=== PATIENT | male | born 1950 | race Caucasian/White ===

== ENCOUNTER 2023-04-15 10:58 | Inpatient (IN) | payer MEDICARE ==
--- NOTE | 2023-04-15 11:31 | ED ---
General Adult HPI - General Chief complaint: Chest Pain Stated complaint: poss heart attack-sent by pcp Time Seen by Provider: 04/15/23 11:01 Source: patient, family, RN notes reviewed, old records reviewed Mode of arrival: ambulatory Limitations: no limitations - History of Present Illness Initial comments: 72-year-old male presenting for evaluation of chest pain and abnormal EKG at his primary care office. Patient was seen by primary care today for evaluation of a burning chest sensation which occurred while mowing the lawn on Tuesday which was 2 days prior. Patient states he's had this symptom for the past 2 years and has begun the process of an outpatient workup for coronary artery disease. He has not had any significant testing to date. He has no known history of coronary artery disease. He states that on Tuesday the pain was longer in duration than it had been typically and it was associated with some fatigue and poor appetite. No vomiting. No radiating symptoms. This was a burning sensation across his lower chest. No symptoms currently. - Related Data Home Medications Medication Instructions Recorded Confirmed Aspirin EC [Ecotrin Low Dose] 81 mg PO DAILY 04/15/23 04/15/23 Fluticasone Nasal [place] [Flonase 1 - 2 spr EA NOSTRIL BID PRN 04/15/23 04/15/23 Nasal [place]] Allergies Allergy/AdvReac Type Severity Reaction Status Date / Time No Known Allergies Allergy Verified 04/15/23 13:40 Review of Systems ROS Statement: Those systems with pertinent positive or pertinent negative responses have been documented in the HPI. ROS Other: All systems not noted in ROS Statement are negative. Past Medical History Additional Past Medical History / Comment(s): Factor 5- takes low dose aspirin Additional Past Surgical History / Comment(s): left hip replacement 2020, hernia repair 2013, colonoscopy, right ankle tendon repair, Past Psychological History: No Psychological Hx Reported Smoking Status: Former smoker Past Alcohol Use History: None Reported, Occasional Past Drug Use History: None Reported General Exam Limitations: no limitations General appearance: alert, in no apparent distress Head exam: Present: atraumatic, normocephalic Eye exam: Present: normal appearance, PERRL ENT exam: Present: normal exam Neck exam: Present: normal inspection. Absent: tenderness Respiratory exam: Present: normal lung sounds bilaterally. Absent: respiratory distress, wheezes Cardiovascular Exam: Present: regular rate, normal rhythm GI/Abdominal exam: Present: soft. Absent: distended, tenderness Extremities exam: Present: normal inspection, normal capillary refill. Absent: pedal edema Neurological exam: Present: alert, oriented X3, CN II-XII intact. Absent: motor sensory deficit Psychiatric exam: Present: normal affect, normal mood Skin exam: Present: warm, dry, intact. Absent: cyanosis, diaphoretic Course Vital Signs 04/15/23 04/15/23 10:59 12:04 Temperature 97.7 F Pulse Rate 79 Respiratory 18 18 Rate Blood Pressure 124/72 O2 Sat by Pulse 99 Oximetry Medical Decision Making - Medical Decision Making Was pt. sent in by a medical professional or institution (, PA, CUSTOMS AGENT, urgent care, hospital, or group home...) When possible be specific @ -To by Dr. Meza Did you speak to anyone other than the patient for history (EMS, parent, family, police, friend...)? What history was obtained from this source @ -No Did you review nursing and triage notes (agree or disagree)? Why? @ -I reviewed and agree with nursing and triage notes Were old charts reviewed (outside hosp., previous admission, EMS record, old EKG, old radiological studies, urgent care reports/EKG's, group home records)? Report findings @ -No old charts were reviewed Differential Diagnosis (chest pain, altered mental status, abdominal pain women, abdominal pain men, vaginal bleeding, weakness, fever, dyspnea, syncope, headache, dizziness, GI bleed, back pain, seizure, CVA, palpatations, mental health, musculoskeletal)? @ Differential Chest Pain: Stable Angina, Unstable Angina, STEMI, NSTEMI Aortic Dissection, Pneumothorax, Musculoskeletal, Esophageal Spasm GERD, Cholecystitis, Pancreatitis, Zoster, this is not meant to be an all-inclusive list. EKG interpreted by me (3pts min.). @ -EKG: Sinus rhythm with PVC, rate of 70, VA interval 146, QS duration 98, QTC 454, biphasic T wave in V2 ST segment depression in lead 2 and aVF X-rays interpreted by me (1pt min.). @ -[Chest x-ray negative for focal pneumonia, no pneumothorax, no acute findings CT interpreted by me (1pt min.). @ -None done U/S interpreted by me (1pt. min.). @ -None done What testing was considered but not performed or refused? (CT, X-rays, U/S, labs)? Why? @ -None What meds were considered but not given or refused? Why? @ -None Did you discuss the management of the patient with other professionals (professionals i.e. , PA, CUSTOMS AGENT, lab, RT, psych nurse, social services designee, license examiner, teacher, chief fundraising officer, case advocate)? Give summary @ Case discussed with [facility] and Dr. Romano Was smoking cessation discussed for >3mins.? @ -No Was critical care preformed (if so, how long)? @ -[yes, 35 minutes Were there social determinants of health that impacted care today? How? (Homelessness, low income, unemployed, alcoholism, drug addiction, transportation, low edu. Level, literacy, decrease access to med. care, residential, rehab)? @ -No Was there de-escalation of care discussed even if they declined (Discuss DNR or withdrawal of care, Hospice)? DNR status @ -No What co-morbidities impacted this encounter? (DM, HTN, Smoking, COPD, CAD, Cancer, CVA, ARF, Chemo, Hep., AIDS, mental health diagnosis, sleep apnea, morbid obesity)? @ -None Was patient admitted / discharged? Hospital course, mention meds given and route, prescriptions, significant lab abnormalities, going to OR and other pertinent info. @ -72 yo male presenting for evaluation chest pain which occurred 2 days prior. Symptoms have resolved. He had EKG changes at the primary care office. Patient has normal laboratory testing with the exception of a significantly elevated troponin at 9. Patient is admitted with non-ST segment elevated [place]. He remains chest pain-free while in the emergency department. He is given aspir in, heparin, Lipitor. Case discussed with the admitting team and with the campus supervisor. Undiagnosed new problem with uncertain prognosis? @ -No Drug Therapy requiring intensive monitoring for toxicity (Heparin, Nitro, Insulin, Cardizem)? @ -No Were any procedures done? @ -No Diagnosis/symptom? @ -NSTEMI Acute, or Chronic, or Acute on Chronic? @ -[acute Uncomplicated (without systemic symptoms) or Complicated (systemic symptoms)? @Complicated Side effects of treatment? @ -No Exacerbation, Progression, or Severe Exacerbation? @ -No Poses a threat to life or bodily function? How? (Chest pain, [place], [place], pneumonia, PE, COPD, DKA, ARF, appy, cholecystitis, CVA, Diverticulitis, Homicidal, Suicidal, threat to staff... and all critical care pts) @ -[Yes, [place] - Lab Data Result diagrams: 04/15/23 11:20 04/15/23 11:20 Lab Results 04/15/23 04/15/23 04/15/23 Range/Units 11:20 11:20 11:20 WBC 10.2 (3.8-10.6) k/uL RBC 4.95 (4.30-5.90) m/uL Hgb 15.5 (13.0-17.5) gm/dL Hct 47.4 (39.0-53.0) % MCV 95.8 (80.0-100.0) fL MCH 31.2 (25.0-35.0) pg MCHC 32.6 (31.0-37.0) g/dL RDW 12.8 (11.5-15.5) % Plt Count 191 (150-450) k/uL MPV 7.7 Neutrophils % 71 % Lymphocytes % 15 % Monocytes % 10 % Eosinophils % 1 % Basophils % 0 % Neutrophils # 7.3 (1.3-7.7) k/uL Lymphocytes # 1.5 (1.0-4.8) k/uL Monocytes # 1.0 (0-1.0) k/uL Eosinophils # 0.1 (0-0.7) k/uL Basophils # 0.0 (0-0.2) k/uL PT 11.5 (9.0-12.0) sec INR 1.1 (<1.2) APTT 23.9 (22.0-30.0) sec Sodium 136 L (137-145) mmol/L Potassium 4.5 (3.5-5.1) mmol/L Chloride 101 (98-107) mmol/L Carbon Dioxide 25 (22-30) mmol/L Anion Gap 10 mmol/L BUN 16 (9-20) mg/dL Creatinine 0.97 (0.66-1.25) mg/dL Est GFR (CKD-EPI)AfAm >90 (>60 ml/min/1.73 sqM) Est GFR (CKD-EPI)NonAf 79 (>60 ml/min/1.73 sqM) Glucose 97 (74-99) mg/dL Calcium 8.9 (8.4-10.2) mg/dL Magnesium 2.2 (1.6-2.3) mg/dL Total Bilirubin 0.9 (0.2-1.3) mg/dL AST 95 H (17-59) U/L ALT 30 (4-49) U/L Alkaline Phosphatase 64 (38-126) U/L Troponin I (0.000-0.034) ng/mL NT-Pro-B Natriuret Pep 5700 pg/mL Total Protein 8.1 (6.3-8.2) g/dL Albumin 4.3 (3.5-5.0) g/dL 04/15/23 Range/Units 11:20 WBC (3.8-10.6) k/uL RBC (4.30-5.90) m/uL Hgb (13.0-17.5) gm/dL Hct (39.0-53.0) % MCV (80.0-100.0) fL MCH (25.0-35.0) pg MCHC (31.0-37.0) g/dL RDW (11.5-15.5) % Plt Count (150-450) k/uL MPV Neutrophils % % Lymphocytes % % Monocytes % % Eosinophils % % Basophils % % Neutrophils # (1.3-7.7) k/uL Lymphocytes # (1.0-4.8) k/uL Monocytes # (0-1.0) k/uL Eosinophils # (0-0.7) k/uL Basophils # (0-0.2) k/uL PT (9.0-12.0) sec INR (<1.2) APTT (22.0-30.0) sec Sodium (137-145) mmol/L Potassium (3.5-5.1) mmol/L Chloride (98-107) mmol/L Carbon Dioxide (22-30) mmol/L Anion Gap mmol/L BUN (9-20) mg/dL Creatinine (0.66-1.25) mg/dL Est GFR (CKD-EPI)AfAm (>60 ml/min/1.73 sqM) Est GFR (CKD-EPI)NonAf (>60 ml/min/1.73 sqM) Glucose (74-99) mg/dL Calcium (8.4-10.2) mg/dL Magnesium (1.6-2.3) mg/dL Total Bilirubin (0.2-1.3) mg/dL AST (17-59) U/L ALT (4-49) U/L Alkaline Phosphatase (38-126) U/L Troponin I 9.190 H* (0.000-0.034) ng/mL NT-Pro-B Natriuret Pep pg/mL Total Protein (6.3-8.2) g/dL Albumin (3.5-5.0) g/dL Disposition Clinical Impression: Acute non-ST elevation myocardial infarction (NSTEMI) Disposition: ADMITTED IP TO THIS HOSP Condition: Stable Is patient prescribed a controlled substance at d/c from ED?: No Time of Disposition: 13:56
--- NOTE | 2023-04-15 11:58 | XR ---
EXAMINATION TYPE: XR chest 2V DATE OF EXAM: 04/15/2023 11:51 AM CLINICAL INDICATION:Male, 72 years old with history of Chest Pain; COMPARISON: Chest radiographs from 04/15/2023 TECHNIQUE: XR chest 2V Frontal and lateral views of the chest. FINDINGS: Lungs/Pleura: There is no evidence of pleural effusion, focal consolidation, or pneumothorax. Pulmonary vascularity: Unremarkable. Heart/mediastinum: Cardiomediastinal silhouette is unremarkable. Musculoskeletal: No acute osseous pathology. IMPRESSION: No acute cardiopulmonary disease/process.
[2023-04-15 12:13] LABS: Basophils % (A) 0 %; Eosinophils # (A) 0.1 k/uL (0-0.7); Eosinophils % (A) 1 %; HCT 47.4 % (39.0-53.0); HGB 15.5 gm/dL (13.0-17.5); Lymphocytes # (A) 1.5 k/uL (1.0-4.8); Lymphocytes % (A) 15 %; MCH 31.2 pg (25.0-35.0); MCHC 32.6 g/dL (31.0-37.0); MCV 95.8 fL (80.0-100.0); Mean Platelet Volume 7.7; Monocytes % (A) 10 %; Neutrophils # (A) 7.3 k/uL (1.3-7.7); Neutrophils % (A) 71 %; Platelet Count 191 k/uL (150-450); RBC 4.95 m/uL (4.30-5.90); RDW 12.8 % (11.5-15.5); WBC 10.2 k/uL (3.8-10.6)
[2023-04-15 12:31] LABS: INR 1.1 (<1.2); Partial Thromboplastin Time 23.9 sec (22.0-30.0); Prothrombin Time 11.5 sec (9.0-12.0)
[2023-04-15 12:52] LABS: ALT 30 U/L (4-49); AST 95 U/L (17-59); African American GFR (CKD) >90 (>60 ml/min/1.73 sqM); Albumin 4.3 g/dL (3.5-5.0); Alkaline Phosphatase 64 U/L (38-126); Anion Gap 10 mmol/L; Blood Urea Nitrogen 16 mg/dL (9-20); Calcium 8.9 mg/dL (8.4-10.2); Carbon Dioxide 25 mmol/L (22-30); Chloride 101 mmol/L (98-107); Glucose 97 mg/dL (74-99); Magnesium 2.2 mg/dL (1.6-2.3); Non-African American GFR(CKD) 79 (>60 ml/min/1.73 sqM); Potassium 4.5 mmol/L (3.5-5.1); Sodium 136 mmol/L (137-145); Total Bilirubin 0.9 mg/dL (0.2-1.3); Total Protein 8.1 g/dL (6.3-8.2)
[2023-04-15 12:59] LABS: NT-Pro-B-Type Natriuretic Pept 5700 pg/mL
--- NOTE | 2023-04-15 13:15 | US ---
EXAMINATION TYPE: US venous doppler duplex LE LT DATE OF EXAM: 04/15/2023 1:08 PM COMPARISON: NONE CLINICAL INDICATION: Male, 72 years old with history of pain; pain SIDE PERFORMED: Left TECHNIQUE: The lower extremity deep venous system is examined utilizing real time linear array sonog sheba with graded compression, doppler sonography and color-flow sonography. VESSELS IMAGED: Common Femoral Vein Deep Femoral Vein Greater Saphenous Vein * Femoral Vein Popliteal Vein Small Saphenous Vein * Proximal Calf Veins (* superficial vessels) Left Leg: Negative for DVT IMPRESSION: No evidence for DVT within the left lower extremity imaged from the groin to the upper ca lf.
[2023-04-15] MEDS ORDERED: ASPIRIN 325 MG TAB PO STA (13:18)
[2023-04-15] MEDS ORDERED: HEPARIN SODIUM 1,000 UN/ML (10ML VL) IV ONE (13:28)
[2023-04-15] MEDS ORDERED: NALOXONE 0.4 MG/ML 1 ML VIAL IV PRN (13:29)
[2023-04-15] MEDS ORDERED: ATORVASTATIN 80 MG TAB PO STA (13:43)
[2023-04-15] MEDS: HEPARIN SOD,PORK IN 0.45% NACL 25,000 UNIT in 0.45% NACL 1 250ML.BAG IV SCH (14:58)
[2023-04-15] MEDS ORDERED: FLUTICASONE 50MCG/SPRAY NASAL 16GM EA NOSTRIL PRN (15:31)
[2023-04-15] MEDS ORDERED: BENZOCAINE/MENTHOL LOZENG 1 EACH LOZENGE MUCOUS MEM PRN (15:35)
[2023-04-15] MEDS ORDERED: ONDANSETRON 4 MG/2 ML VIAL IVP PRN (15:35)
--- NOTE | 2023-04-15 15:38 | P.HPIM ---
History of Present Illness H&P Date: 04/15/23 Chief Complaint: Chest pain * 72-year-old gentleman with history of factor V on low-dose aspirin, no significant past medical history has been having intermittent chest pain for the last 2 months. Patient had followed up with cardiology outpatient and was scheduled for outpatient echocardiogram and stress test * Patient described midsternal chest pain that is worse with exertion and improved with rest * Patient said he was mowing his lawn 2 days prior when he started having midsternal chest pressure. He denied any radiation of pain. He denies any associated nausea, vomiting, excessive diaphoresis * Patient stated he has ongoing discomfort for several months for which he has already seen cardiology however workup is still pending * Workup in ER included EKG which showed sinus rhythm nonspecific ST segment changes * Upon presentation patient had initial troponin obtained which was 9.1, N- terminal proBNP 5700 REVIEW OF SYSTEMS: Chest pain CONSTITUTIONAL: No fever, no malaise, no fatigue. HEENT: No recent visual problems or hearing problems. Denied any sore throat. CARDIOVASCULAR: No chest pain, orthopnea, PND, no palpitations, no syncope. PULMONARY: No shortness of breath, no cough, no hemoptysis. GASTROINTESTINAL: No diarrhea, no nausea, no vomiting, no abdominal pain. NEUROLOGICAL: No headaches, no weakness, no numbness. HEMATOLOGICAL: Denies any bleeding or petechiae. GENITOURINARY: Denies any burning micturition, frequency, or urgency. MUSCULOSKELETAL/RHEUMATOLOGICAL: Denies any joint pain, swelling, or any muscle pain. ENDOCRINE: Denies any polyuria or polydipsia. The rest of the 14-point review of systems is negative. PHYSICAL EXAMINATION: GENERAL: The patient is alert and oriented x3, not in any acute distress. Well developed, well nourished. HEENT: Pupils are round and equally reacting to light. EOMI. No scleral icterus. No conjunctival pallor. Normocephalic, atraumatic. No pharyngeal erythema. No th yromegaly. CARDIOVASCULAR: S1 and S2 present. No murmurs, rubs, or gallops. PULMONARY: Chest is clear to auscultation, no wheezing or crackles. ABDOMEN: Soft, nontender, nondistended, normoactive bowel sounds. No palpable organomegaly. MUSCULOSKELETAL: No joint swelling or deformity. EXTREMITIES: No cyanosis, clubbing, or pedal edema. NEUROLOGICAL: Gross neurological examination did not reveal any focal deficits. SKIN: No rashes. Past Medical History Additional Past Medical History / Comment(s): Factor 5- takes low dose aspirin Additional Past Surgical History / Comment(s): left hip replacement 2020, hernia repair 2013, colonoscopy, right ankle tendon repair, Past Psychological History: No Psychological Hx Reported Smoking Status: Former smoker Past Alcohol Use History: None Reported, Occasional Past Drug Use History: None Reported Medications and Allergies Home Medications Medication Instructions Recorded Confirmed Type Aspirin EC [Ecotrin Low Dose] 81 mg PO DAILY 04/15/23 04/15/23 History Fluticasone Nasal [place] [Flonase 1 - 2 spr EA NOSTRIL BID PRN 04/15/23 04/15/23 History Nasal [place]] Allergies Allergy/AdvReac Type Severity Reaction Status Date / Time No Known Allergies Allergy Verified 04/15/23 13:40 Physical Exam Vitals: Vital Signs Temp Pulse Resp BP Pulse Ox 04/15/23 15:02 77 18 111/71 98 04/15/23 12:04 18 04/15/23 10:59 97.7 F 79 18 124/72 99 Intake and Output 04/15/23 04/15/23 04/15/23 06:59 14:59 22:59 Other: Weight 75.296 kg Results CBC & Chem 7: 04/15/23 11:20 04/15/23 11:20 Labs: Abnormal Lab Results - Last 24 Hours (Table) 04/15/23 04/15/23 Range/Units 11:20 11:20 Sodium 136 L (137-145) mmol/L AST 95 H (17-59) U/L Troponin I 9.190 H* (0.000-0.034) ng/mL Assessment and Plan Assessment: Assessment and plan * Non-ST elevated CO * History of factor V [place] * Serial troponins ordered, cardiology consulted, IV heparin initiated * Echocardiogram ordered * Diet resumed for cardiology recommendations * Serial troponins ordered * continue playground monitor * CODE STATUS is full code
[2023-04-15] MEDS ORDERED: NITROGLYCERIN SL TABS 0.4 MG TAB SUBLINGUAL PRN (15:39)
--- NOTE | 2023-04-15 18:18 | CA ---
Transthoracic Echo Report Name: Shahriar Maddox Age: 72 Gender: M : 1950 Exam Date: 04/15/2023 13:56 Exam Location: [facility] Ht (in): 70 Wt (lb): 166 Ordering Physician: Chai Xiong MD Attending/Referring Phys: [id number], In[facility] [employer] I [employer] Craig Mann Procedure CPT: Indications: nstemi Cardiac Hx: Technical Quality: Fair Contrast 1: Total Dose (mL): Contrast 2: Total Dose (mL): MEASUREMENTS (Male / Female) Normal Values 2D ECHO LV Diastolic Diameter PLAX 5.1 cm 4.2 - 5.9 / 3.9 - 5.3 cm LV Systolic Diameter PLAX 4.0 cm IVS Diastolic Thickness 0.9 cm 0.6 - 1.0 / 0.6 - 0.9 cm RV Internal Dim ED PLAX 3.1 cm LVOT Diameter 2.1 cm Aortic Root Diameter 2.9 cm LA Systolic Diameter LX 2.8 cm 3.0 - 4.0 / 2.7 - 3.8 cm LV Diastolic Volume MOD BP 84.6 cm??? 67 - 155 / 56 - 104 cm??? LV Systolic Volume MOD BP 68.7 cm??? 22 - 58 / 19 - 49 cm??? LV Ejection Fraction MOD BP 18.8 % >= 55 % LV Cardiac Index MOD BP 634.5 cm???/min???m??? LV Diastolic Volume MOD 4C 87.4 cm??? LV Systolic Volume MOD 4C 69.7 cm??? LV Ejection Fraction MOD 4C 20.3 % LV Cardiac Index MOD 4C 705.7 cm???/min???m??? LV Diastolic Length 4C 7.6 cm LV Systolic Length 4C 7.0 cm LV Diastolic Volume MOD 2C 73.6 cm??? LV Systolic Volume MOD 2C 66.4 cm??? LV Ejection Fraction MOD 2C 9.8 % LV Cardiac Index MOD 2C 287.7 cm???/min???m??? LV Diastolic Length 2C 6.8 cm LV Systolic Length 2C 7.1 cm LA Volume 52.8 cm??? 18 - 58 / 22 - 52 cm??? DOPPLER AV Peak Velocity 121.5 cm/s AV Peak Gradient 5.9 mmHg LVOT Peak Velocity 87.3 cm/s LVOT Peak Gradient 3.0 mmHg AV Area Cont Eq pk 2.5 cm??? MR Peak Velocity 392.8 cm/s MR Peak Gradient 61.7 mmHg Mitral E Point Velocity 79.9 cm/s Mitral A Point Velocity 91.2 cm/s Mitral E to A Ratio 0.9 MV Deceleration Time 127.3 ms MV E' Velocity 6.9 cm/s Mitral E to MV E' Ratio 11.6 TR Peak Velocity 262.9 cm/s TR Peak Gradient 27.7 mmHg Right Ventricular Systolic Press 32.7 mmHg PV Peak Velocity 88.2 cm/s PV Peak Gradient 3.1 mmHg FINDINGS Left Ventricle Normal LV size and wall thickness. LV apical, septal and anteroseptal wall hypokinesia. Left ventricular ejection fraction is estimated at 25-30 %. Right Ventricle Normal right ventricular size. RVSP= 36mmHg. Right Atrium Normal right atrial size. Left Atrium Normal left atrial size. Mitral Valve Structurally normal mitral valve. Mild MR. Aortic Valve Trileaflet aortic valve. No aortic valve stenosis or regurgitation. Tricuspid Valve Structurally normal tricuspid valve. Mild TR. Pulmonic Valve Pulmonic valve not well visualized. No pulmonic regurgitation. Pericardium Normal pericardium. Aorta Normal size aortic root. CONCLUSIONS Left ventricular ejection fraction is estimated at 25-30 %. LV septal, anteroseptal and apical wall hypokinesia. Mild mitral regurgitation RVSP estimated at 36 mmHg Previewed by: Dr Charli Garcia (Electronically Signed) Final Date: 15 April 2023 18:17
[2023-04-16] MEDS ORDERED: HEPARIN SODIUM,PORCINE (1 ML) 2,500 UNIT in SODIUM CHLORIDE 0.9% 250 ML IRRIGATION PRN (07:00)
[2023-04-16] MEDS ORDERED: HEPARIN SODIUM,PORCINE 10,000 UNIT in SODIUM CHLORIDE 0.9% 1,000 ML IRRIGATION PRN (07:00)
[2023-04-16 07:45] LABS: Basophils % (A) 0 %; Eosinophils # (A) 0.1 k/uL (0-0.7); Eosinophils % (A) 1 %; HCT 45.3 % (39.0-53.0); HGB 14.6 gm/dL (13.0-17.5); Lymphocytes # (A) 1.1 k/uL (1.0-4.8); Lymphocytes % (A) 13 %; MCH 30.8 pg (25.0-35.0); MCHC 32.3 g/dL (31.0-37.0); MCV 95.5 fL (80.0-100.0); Mean Platelet Volume 7.4; Monocytes # (A) 0.9 k/uL (0-1.0); Monocytes % (A) 10 %; Neutrophils # (A) 6.7 k/uL (1.3-7.7); Neutrophils % (A) 74 %; Platelet Count 168 k/uL (150-450); RBC 4.74 m/uL (4.30-5.90); RDW 12.7 % (11.5-15.5)
[2023-04-16 08:05] LABS: INR 1.1 (<1.2); Prothrombin Time 11.3 sec (9.0-12.0)
[2023-04-16 08:09] LABS: African American GFR (CKD) >90 (>60 ml/min/1.73 sqM); Anion Gap 6 mmol/L; Blood Urea Nitrogen 16 mg/dL (9-20); Calcium 8.4 mg/dL (8.4-10.2); Carbon Dioxide 22 mmol/L (22-30); Chloride 106 mmol/L (98-107); Glucose 106 mg/dL (74-99); Non-African American GFR(CKD) 89 (>60 ml/min/1.73 sqM); Potassium 4.4 mmol/L (3.5-5.1); Sodium 134 mmol/L (137-145)
[2023-04-16] MEDS: ASPIRIN 81 MG PO SCH (08:22)
[2023-04-16] MEDS: HEPARIN SODIUM 1,000 UN/ML (10ML VL) IV PRN ×2 (08:43→21:59)
[2023-04-16] MEDS ORDERED: SACUBITRIL/VALSARTAN 24 MG-26 MG TABLET PO SCH (09:15)
[2023-04-16] MEDS ORDERED: ATORVASTATIN 80 MG TAB PO STA (09:31)
[2023-04-16] MEDS ORDERED: ALPRAZolam 0.25 MG TAB PO PRN (09:31)
[2023-04-16] MEDS ORDERED: NITROGLYCERIN SL TABS 0.4 MG TAB SUBLINGUAL PRN ×2 (09:31→13:58)
[2023-04-16] MEDS ORDERED: METOPROLOL SUCCINATE (ER) 25 MG TAB.ER.24H PO SCH (09:45)
--- NOTE | 2023-04-16 10:16 | P.CRDCN ---
History of Present Illness Consult date: 04/16/23 Reason for Consult (text): NSTEMI Consult reason: chest pain Chief complaint: chest pain History of present illness: History of present illness: Patient is a pleasant 72-year-old male with significant past medical history of factor V leiden who presented with complaints of chest pain and elvated troponin. He does follow with Dr. Romano in the office and was seen in February with plans for outpatient stress testing and echo. He had previously been complaining of a burning sensation in his chest and a "raw lung discomfort" that radiates across his chest that he had been having for a couple years. He states the chest pain would typically last 1015 minutes and he is usually able to work through this pain and had been relatively stable. However, 3 days ago he was cutting his grass and developed more severe chest discomfort along with shortness of breath and diaphoresis. He had to take multiple breaks while cutting his grass and the chest pain lasted for approximately 1.5 hours, he then felt fatigued and had decreased appetite afterwards. His advised him to go to the emergency department at this time, however, patient refused. He called his PCP and saw PCP 2 days later and was told he had an abnormal EKG and to go to the emergency department. He is no longer having any chest pain. Troponin elevated 9.190, 9.420, 7.980. BNP 5700. Creatinine 0.82. EKG shows sinus rhythm with minimal ST depression. He had a venous Doppler that was negative for DVT in the left leg. Echocardiogram 04/15/23 shows ejection fraction 2530%, LV septal, anteroseptal and apical wall hypokinesis, mild mitral regurgitation, RVSP 36. REVIEW OF SYSTEMS: No fever or chills. No cough or expectoration. No diaphoresis. Patient denies headache, dizziness, blurred vision, double vision. Patient denies any stomach discomfort. No nausea, vomiting. No hematochezia. No hematemesis. Denies any black stools or blood in his stools. Denies dysuria or hematuria. No muscle weakness or numbness. No chest pain or pressure. PHYSICAL EXAMINATION: This is a 72-year-old male in no apparent distress at the time of my examination. HEENT: Head is atraumatic, normocephalic. Pupils are equal, round. Sclerae anicteric. Conjunctivae are clear. Mucous membranes of the mouth are moist. Neck is supple. There is no jugular venous distention. No carotid bruit is heard. CHEST EXAMINATION: Lungs are clear to auscultation. No chest wall tenderness is noted on palpation or with deep breathing. HEART EXAMINATION: Heart regular rate and rhythm. S1, S2 heard. No murmurs, gallops or rub. ABDOMEN: Soft, nontender. Bowel sounds are heard. No organomegaly noted. EXTREMITIES: 2+ peripheral pulses with no evidence of peripheral edema and no calf tenderness noted. NEUROLOGIC EXAMINATION: Patient is awake, alert and oriented x3. IMPRESSION AND PLAN: NSTEMI Cardiomyopathy Acute on chronic systolic heart failure, EF 2530% Chest pain, resolved Factor V Leiden PLAN: We will plan to proceed with left heart catheterization and possible intervention. Risks and benefits of procedure were discussed with patient and spouse at bedside, he agrees to proceed with procedure. Will optimize heart failure regimen given EF 25-20%, Entresto was added by primary team this morning. Will also add Toprol. Continue heparin drip at this time. Monitor blood pressure. Continue aspirin 81 mg daily. Check Lipid panel. NPO for heart cath this afternoon. Further recommendations post procedure. I am dictating on behalf of Dr. Wong Romano's history/physical and assessment/plan. Past Medical History Additional Past Medical History / Comment(s): Factor 5- takes low dose aspirin History of Any Multi-Drug Resistant Organisms: None Reported Additional Past Surgical History / Comment(s): left hip replacement 2020, hernia repair 2013, colonoscopy, right ankle tendon repair, Past Anesthesia/Blood Transfusion Reactions: No Reported Reaction Past Psychological History: No Psychological Hx Reported Smoking Status: Former smoker Past Alcohol Use History: None Reported, Occasional Past Drug Use History: None Reported Medications and Allergies Home Medications Medication Instructions Recorded Confirmed Type Aspirin EC [Ecotrin Low Dose] 81 mg PO DAILY 04/15/23 04/15/23 History Fluticasone Nasal Geism[place] [Flonase 1 - 2 spr EA NOSTRIL BID PRN 04/15/23 04/15/23 History Nasal Geismar] Allergies Allergy/AdvReac Type Severity Reaction Status Date / Time No Known Allergies Allergy Verified 04/15/23 13:40 Physical Exam Vitals: Vital Signs Temp Pulse Pulse Resp BP BP Pulse Ox 04/16/23 09:12 97 04/16/23 08:20 98.9 F 80 18 123/55 96 04/16/23 04:00 98 F 81 18 112/66 95 04/16/23 00:00 84 16 124/70 97 04/15/23 20:00 98.5 F 81 16 114/64 97 04/15/23 18:14 99.1 F 80 16 134/71 96 04/15/23 16:18 99.7 F H 72 18 117/64 95 04/15/23 15:02 77 18 111/71 98 04/15/23 12:04 18 04/15/23 10:59 97.7 F 79 18 124/72 99 Intake and Output 04/15/23 04/16/23 04/16/23 22:59 06:59 14:59 Intake Total 65.059 111.208 Balance 65.059 111.208 Intake: Intake, IV Titration 65.059 111.208 Amount Heparin Sod,Pork in 0.45% 65.059 111.208 NaCl 25,000 unit In 0.45 % NaCl 1 250ml.bag @ 12 UNITS/KG/HR 9.036 mls/hr IV .Q24H [facility] Rx#: [id number] Other: # Voids 2 4 Weight 75.296 kg Results 04/16/23 07:29 04/16/23 07:29 Cardiac Enzymes 04/15/23 04/15/23 04/15/23 Range/Units 11:20 11:20 14:34 AST 95 H (17-59) U/L Troponin I 9.190 H* 9.420 H* (0.000-0.034) ng/mL 04/15/23 Range/Units 19:52 AST (17-59) U/L Troponin I 7.980 H* (0.000-0.034) ng/mL Coagulation 04/15/23 04/15/23 04/16/23 Range/Units 11:20 19:52 07:29 PT 11.5 11.3 (9.0-12.0) sec APTT 23.9 41.9 H (22.0-30.0) sec 04/16/23 Range/Units 07:29 PT (9.0-12.0) sec APTT 41.0 H (22.0-30.0) sec CBC 04/15/23 04/16/23 Range/Units 11:20 07:29 WBC 10.2 9.0 (3.8-10.6) k/uL RBC 4.95 4.74 (4.30-5.90) m/uL Hgb 15.5 14.6 (13.0-17.5) gm/dL Hct 47.4 45.3 (39.0-53.0) % Plt Count 191 168 (150-450) k/uL Comprehensive Metabolic Panel 04/15/23 04/16/23 Range/Units 11:20 07:29 Sodium 136 L 134 L (137-145) mmol/L Potassium 4.5 4.4 (3.5-5.1) mmol/L Chloride 101 106 (98-107) mmol/L Carbon Dioxide 25 22 (22-30) mmol/L BUN 16 16 (9-20) mg/dL Creatinine 0.97 0.82 (0.66-1.25) mg/dL Glucose 97 106 H (74-99) mg/dL Calcium 8.9 8.4 (8.4-10.2) mg/dL AST 95 H (17-59) U/L ALT 30 (4-49) U/L Alkaline Phosphatase 64 (38-126) U/L Total Protein 8.1 (6.3-8.2) g/dL Albumin 4.3 (3.5-5.0) g/dL Current Medications Generic Name Dose Route Start Last Admin Trade Name Freq PRN Reason Stop Dose Admin Acetaminophen 650 mg 04/15/23 15:35 Acetaminophen Tab 325 Mg Tab PO Q6HR PRN Mild Pain or Fever > 100.5 Alprazolam 0.25 mg 04/16/23 09:31 Alprazolam 0.25 Mg Tab PO Q6HR PRN Mild Anxiety Alprazolam 0.5 mg 04/16/23 09:31 Alprazolam 0.5 Mg Tab PO Q6HR PRN Moderate Anxiety Aspirin 81 mg 04/16/23 09:00 04/16/23 08:22 Aspirin 81 Mg PO 81 mg DAILY LENNY Administration Benzocaine/Menthol 1 each 04/15/23 15:35 Benzocaine/Menthol Lozeng 1 Each Lozenge MUCOUS MEM Q4HR PRN Sore Throat Fluticasone Propionate 2 spray 04/15/23 15:31 Fluticasone 50mcg/Geismar Nasal 16gm EA NOSTRIL BID PRN Allergy Symptoms Heparin Sodium (Porcine) 0 unit 04/15/23 13:28 04/16/23 08:43 Heparin Sodium 1,000 Un/Ml (10ml Vl) IV 1,875 unit PER PROTOCOL PRN Administration Low PTT Protocol Heparin Sodium/Sodium Chloride 250 mls @ 9.036 mls/hr 04/15/23 13:30 04/16/23 08:43 25,000 unit/ Sodium Chloride IV 16 units/kg/hr .Q24H LENNY 12.047 mls/hr Titration Protocol 12 UNITS/KG/HR Heparin Sodium (Porcine) 10, 1,001 mls @ 999 mls/hr 04/16/23 07:00 000 unit/ Sodium Chloride IRRIGATION 04/16/23 23:00 ONCE PRN INTRA-OP Heparin Sodium (Porcine) 2,500 250.5 mls @ 250 mls/hr 04/16/23 07:00 unit/ Sodium Chloride IRRIGATION 04/16/23 23:00 ONCE PRN INTRA-OP Metoprolol Succinate 25 mg 04/16/23 09:45 Metoprolol Succinate (Er) 25 Mg Tab.Er.24h PO DAILY [facility] Naloxone HCl 0.2 mg 04/15/23 13:29 Naloxone 0.4 Mg/Ml 1 Ml Vial IV Q2M PRN Opioid Reversal Nitroglycerin 0.4 mg 04/15/23 15:39 Nitroglycerin Sl Tabs 0.4 Mg Tab SUBLINGUAL Q5M PRN Chest Pain Ondansetron HCl 4 mg 04/15/23 15:35 Ondansetron 4 Mg/2 Ml Vial IVP Q8HR PRN Nausea And Vomiting Sacubitril/Valsartan 1 each 04/16/23 09:15 Sacubitril/Valsartan 24 Mg-26 Mg Tablet PO BID LENNY Intake and Output 04/15/23 04/16/23 04/16/23 22:59 06:59 14:59 Intake Total 65.059 111.208 Balance 65.059 111.208 Intake: Intake, IV Titration 65.059 111.208 Amount Heparin Sod,Pork in 0.45% 65.059 111.208 NaCl 25,000 unit In 0.45 % NaCl 1 250ml.bag @ 12 UNITS/KG/HR 9.036 mls/hr IV .Q24H [facility] Rx#: [id number] Other: # Voids 2 4 Weight 75.296 kg 04/16/23 07:29 04/16/23 07:29
[2023-04-16] MEDS ORDERED: fentaNYL (PF) 50 MCG/ML 2 ML AMP ONE ×2 (10:46→12:47)
[2023-04-16] MEDS ORDERED: HEPARIN SODIUM 1,000 UN/ML (10ML VL) ONE (10:47)
[2023-04-16] MEDS ORDERED: LIDOCAINE 2% (PF) 20 MG/ML 5 ML VIAL SQ ONE ×2 (10:58)
[2023-04-16] MEDS ORDERED: SODIUM CHLORIDE 0.9% 1,000 ML IV ONE ×2 (10:58→12:58)
[2023-04-16] MEDS: fentaNYL (PF) 50 MCG/1 ML VIAL IVP ONE ×2 (10:58→12:12)
[2023-04-16] MEDS: MIDAZOLAM 2 MG/2 ML VIAL IVP ONE ×2 (10:58→12:11)
[2023-04-16] MEDS ORDERED: VERAPAMIL SYRINGE (5 MG/10 ML) INTRAARTER ONE (10:59)
[2023-04-16] MEDS: HEPARIN SODIUM 1,000 UN/ML (10ML VL) IV ONE ×6 (11:00→12:44)
[2023-04-16] MEDS ORDERED: PRASUGREL 10 MG TAB ONE ×2 (11:11)
[2023-04-16] MEDS ORDERED: PRASUGREL 10 MG TAB PO ONE (11:14)
[2023-04-16] MEDS: PHENYLEPHRINE-0.9% NACL SYG 1,000 MCG/10 ML SYRINGE IVP ONE ×3 (11:42→11:50)
[2023-04-16] MEDS ORDERED: EPINEPHrine 10 ML SYRINGE (0.1 MG/ML) MISCELLANE ONE (11:52)
[2023-04-16] MEDS: NITROGLYCERIN 1000MCG/10ML SYRINGE INTRACORON ONE ×2 (12:07→12:18)
[2023-04-16] MEDS ORDERED: IOPAMIDOL-370 100ML BTL INJ ONE ×3 (12:07→13:10)
[2023-04-16] MEDS ORDERED: MIDAZOLAM 2 MG/2 ML VIAL IVP ONE (12:51)
[2023-04-16] MEDS ORDERED: fentaNYL (PF) 50 MCG/1 ML VIAL IVP ONE (12:52)
[2023-04-16] MEDS ORDERED: AMIODARONE 360 MG in DEXTROSE 5% IN WATER 200 ML IV ONE ×2 (13:45)
[2023-04-16 13:50] LABS: LDL Cholesterol,Calculated 116.7 mg/dL (0.0-131.0); VLDL Calculation 10.36 mg/dL (5.00-40.00)
[2023-04-16] MEDS ORDERED: ATROPINE SULFATE 0.1 MG/ML 10ML SYRINGE IV PRN (13:58)
[2023-04-16] MEDS ORDERED: RX INFO: IV CONTRAST WAS GIVEN 1 EACH MISC MISCELLANE PRN (13:58)
[2023-04-16] MEDS ORDERED: MAG HYDROX/AL HYDROX/SIMETH 30 ML CUP PO PRN (13:58)
[2023-04-16] MEDS ORDERED: ZOLPIDEM 5 MG TAB PO PRN (13:58)
[2023-04-16] MEDS ORDERED: SODIUM CHLORIDE 0.9% 1,000 ML in EMPTY BAG 1 BAG IV SCH (14:00)
[2023-04-16] MEDS ORDERED: HEPARIN SODIUM 1,000 UN/ML (10ML VL) IV PRN (14:02)
--- NOTE | 2023-04-16 14:25 | P.PN ---
Subjective Progress Note Date: 04/16/23 * 72-year-old gentleman with history of factor V on low-dose aspirin, no significant past medical history has been having intermittent chest pain for the last 2 months. Patient had followed up with cardiology outpatient and was scheduled for outpatient echocardiogram and stress test * Patient described midsternal chest pain that is worse with exertion and improved with rest * Patient said he was mowing his lawn 2 days prior when he started having midsternal chest pressure. He denied any radiation of pain. He denies any associated nausea, vomiting, excessive diaphoresis * Patient stated he has ongoing discomfort for several months for which he has already seen cardiology however workup is still pending * Workup in ER included EKG which showed sinus rhythm nonspecific ST segment changes * Upon presentation patient had initial troponin obtained which was 9.1, N- terminal proBNP 5700 * 04/16: Patient had echocardiogram completed which showed ejection fraction of 25%. Patient was taken for cardiac catheterization post cath patient was transferred to medical ICU. Patient is status post cardiac cath with Intal and place. Evaluated and bedside in medical ICU alert and oriented 4. Denies of chest pain, shortness of breath noted however no use of accessory muscle Objective - Vital Signs Vital signs: Vital Signs Temp 98.9 F 04/16/23 08:20 Pulse 80 04/16/23 08:20 Resp 18 04/16/23 08:20 BP 123/55 04/16/23 08:20 Pulse Ox 97 04/16/23 09:12 FiO2 Intake & Output 04/15/23 04/16/23 04/16/23 18:59 06:59 18:59 Intake Total 65.059 1621.208 Balance 65.059 1621.208 Weight 75.296 kg Intake: IV 1510 Intake, IV Titration 65.059 111.208 Amount Heparin Sod,Pork in 0.45% 65.059 111.208 NaCl 25,000 unit In 0.45 % NaCl 1 250ml.bag @ 12 UNITS/KG/HR 9.036 mls/hr IV .Q24H [facility] Rx#: [id number] Other: # Voids 4 - Exam PHYSICAL EXAMINATION: GENERAL: The patient is alert and oriented x3, not in any acute distress. Well developed, well nourished. HEENT: Pupils are round and equally reacting to light. EOMI. No scleral icterus. No conjunctival pallor. Normocephalic, atraumatic. No pharyngeal erythema. No thyromegaly. CARDIOVASCULAR: S1 and S2 present. Impella in place PULMONARY: Decreased breath sounds bilaterally ABDOMEN: Soft, nontender, nondistended, normoactive bowel sounds. No palpable organomegaly. MUSCULOSKELETAL: No joint swelling or deformity. EXTREMITIES: No cyanosis, clubbing, or pedal edema. NEUROLOGICAL: Gross neurological examination did not reveal any focal deficits. - Labs CBC & Chem 7: 04/16/23 07:29 04/16/23 07:29 Labs: Abnormal Lab Results - Last 24 Hours (Table) 04/15/23 04/15/23 04/15/23 Range/Units 14:34 19:52 19:52 APTT 41.9 H (22.0-30.0) sec Sodium (137-145) mmol/L Glucose (74-99) mg/dL Troponin I 9.420 H* 7.980 H* (0.000-0.034) ng/mL 04/16/23 04/16/23 Range/Units 07:29 07:29 APTT 41.0 H (22.0-30.0) sec Sodium 134 L (137-145) mmol/L Glucose 106 H (74-99) mg/dL Troponin I (0.000-0.034) ng/mL Assessment and Plan Assessment: Assessment and plan * Non-ST elevated NV * Acute systolic heart failure * Status post IMPELLA post cardiac catheterization * History of factor V [place] * Consultation obtained from cardiology, patient transferred to medical ICU * Continue patient on IV heparin, patient started on IV amiodarone drip, continue aspirin and Lipitor Effient * Continue to monitor CBC and basic metabolic panel * Continue management and medical ICU * For acute onset congestive heart failure continue to monitor volume status * Prognosis remains guarded
[2023-04-16] MEDS: HEPARIN SOD,PORK IN 0.45% NACL 25,000 UNIT in 0.45% NACL 1 250ML.BAG IV SCH ×2 (14:26→15:07)
[2023-04-16] MEDS: SODIUM BICARB (1 MEQ/ML) 12.5 ML in DEXTROSE 5% IN WATER 500 ML IV SCH ×2 (14:32)
[2023-04-16 15:37] LABS: Glucose,Whole Blood 167 mg/dL (70-110)
[2023-04-16 15:41] LABS: Basophils % (A) 0 %; Eosinophils % (A) 0 %; HGB 14.9 gm/dL (13.0-17.5); Lymphocytes # (A) 0.8 k/uL (1.0-4.8); Lymphocytes % (A) 8 %; MCHC 33.1 g/dL (31.0-37.0); MCV 96.8 fL (80.0-100.0); Mean Platelet Volume 8.2; Monocytes # (A) 0.8 k/uL (0-1.0); Monocytes % (A) 8 %; Neutrophils # (A) 8.5 k/uL (1.3-7.7); Neutrophils % (A) 83 %; Platelet Count 168 k/uL (150-450); RBC 4.65 m/uL (4.30-5.90); RDW 12.8 % (11.5-15.5); WBC 10.3 k/uL (3.8-10.6)
[2023-04-16 15:56] LABS: African American GFR (CKD) >90 (>60 ml/min/1.73 sqM); Anion Gap 9 mmol/L; Blood Urea Nitrogen 15 mg/dL (9-20); Carbon Dioxide 20 mmol/L (22-30); Chloride 104 mmol/L (98-107); Glucose 141 mg/dL (74-99); Magnesium 2.1 mg/dL (1.6-2.3); Non-African American GFR(CKD) 87 (>60 ml/min/1.73 sqM); Potassium 4.4 mmol/L (3.5-5.1); Sodium 133 mmol/L (137-145)
[2023-04-16 16:09] LABS: Amorphous Sediment,Urine Moderate /hpf; Bacteria,Urine Few /hpf; Mucus,Urine Rare /hpf; RBC,Urine 2 /hpf (0-5); WBC,Urine 6 /hpf (0-5)
[2023-04-16 16:16] LABS: Appearance,Urine Slightly Cloudy (Clear); Color,Urine Dark Brown
[2023-04-16 17:40] LABS: INR 1.1 (<1.2); Partial Thromboplastin Time 56.4 sec (22.0-30.0); Prothrombin Time 11.7 sec (9.0-12.0)
--- NOTE | 2023-04-16 17:45 | CA ---
Transthoracic Echo Report Name: Shahriar Maddox Age: 72 Gender: M : 1950 Exam Date: 04/16/2023 15:23 Exam Location: [facility] Ht (in): 70 Wt (lb): 166 Ordering Physician: Wong Romano DO ([email or web address]) Attending/Referring Phys: Human Resources Benefits Assistant Yocasta Bass RDCS Procedure CPT: Indications: Placement of Left Ventricular Assist Device Cardiac Hx: limited study Technical Quality: Good Contrast 1: Total Dose (mL): Contrast 2: Total Dose (mL): MEASUREMENTS (Male / Female) Normal Values 2D ECHO LV Diastolic Volume MOD 4C 87.3 cm??? LV Systolic Volume MOD 4C 66.3 cm??? LV Ejection Fraction MOD 4C 24.1 % LV Cardiac Index MOD 4C 902.5 cm???/min???m??? LV Diastolic Length 4C 8.3 cm LV Systolic Length 4C 8.1 cm LV Diastolic Volume MOD 2C 106.6 cm??? LV Systolic Volume MOD 2C 80.3 cm??? LV Ejection Fraction MOD 2C 24.7 % LV Cardiac Index MOD 2C 1130.9 cm???/min???m??? LV Diastolic Length 2C 9.3 cm LV Systolic Length 2C 8.9 cm FINDINGS Left Ventricle Left ventricular ejection fraction is estimated at 20-25 %. Impela cathather in LVOT visualized. Looks well located Right Ventricle Right Atrium Left Atrium Mitral Valve Structurally normal mitral valve. Mild mitral regurgitation. Aortic Valve Trileaflet aortic valve. Trace to mild aortic regurgitation. Tricuspid Valve Structurally normal tricuspid valve. Mild tricuspid regurgitation. Pulmonic Valve Pericardium No pericardial effusion. Aorta CONCLUSIONS Left ventricular ejection fraction 20-25% Impella in appropriate position Mild mitral regurgitation No pericardial effusion Previewed by: Dr. Wong Romano DO (Electronically Signed) Final Date: 16 April 2023 17:44
[2023-04-16] MEDS: AMIODARONE 450 MG in DEXTROSE 5% IN WATER 250 ML IV SCH ×2 (19:09)
[2023-04-16] MEDS: ALPRAZolam 0.5 MG TAB PO PRN (19:46)
--- NOTE | 2023-04-16 20:03 | P.PRCINT ---
Percutaneous Coronary Int. - Percutaneous Coronary Intervention Percutaneous Coronary Intervention: PROCEDURES PERFORMED: Left heart catheterization, bilateral coronary angiography, ultrasound guided arterial access, PCI of proximal to mid LAD with overlapping 3.5 x 38mm, 3.0 x 12mm, 2.5 x 38mm Xience REYNALDO post dilated with a 3.5 NC balloon, balloon angioplasty of apical LAD with 2.0 balloon, Penumbra aspiration thrombectomy LAD, PCI mid circumflex with a 3.0 x 23mm Xience REYNALDO, Impella CP placement, IVUS LAD, synchronized cardioversion x 1 INDICATION: NSTEMI CONSENT:I have discussed the risks, benefits and alternative therapies for the above-mentioned procedure and for both sedation/analgesia as well as necessary blood product administration, if indicated, as they pertain to this patient. The patient has indicated understanding and acceptance of the risks and procedures discussed. PROCEDURE: After the risks, benefits and alternatives of the above mentioned procedure explained in detail with the patient, informed consent was obtained. Patient was taken to the catheterization lab and prepped and draped in usual fashion. Ultrasound guidance was used to assess for arterial access. 1% lidocaine was used to anesthetize the right radial artery. A 6-Kyrgyz sheath was placed in the right radial artery using modified Seldinger technique and ultrasound guidance. Left coronary angiography was performed with a 5-Kyrgyz JL 3.5 catheter and right coronary angiography was performed with a 5-Kyrgyz JR5 c atheter in various views. A 5-Kyrgyz FR5 catheter was inserted into the left ventricle and pressure measurements were obtained. There was diffuse disease noted of the mid to distal LAD on collaterals from the RCA without great target for CABG and therefore felt best treated with stenting. Patient's presentation was also subacute with likely AK 4 days prior with some concern of more organized thrombus. Heparin was given. A 6Fr CLS 3.5 guide was used to engage the left main. A 0.014 BMW wire was placed in the circumflex. Initial attempts were made at wiring the LAD with a 0.014 BMW and whisper wire however more difficulty wiring the proximal to mid (after the 100% lesion) felt related to tandem lesions. Therefore a 0.014 Fielder XT in a Corsair microcatheter was used and was able to wire to the distal LAD. Balloon angioplasty was initially performed of the proximal LAD however still no antegrade flow. Therefore an IVUS catheter was inserted and there was diffuse disease noted of the majority of the proximal to mid LAD with reference vessel 3.5mm proximally down to a 2.5mm vessel distal with no dissection and wire intraluminal. During IVUS he became to become hypotensive which was felt possibly related to more organized thrombus embolizing distally or even clot embolizing down the circumflex. Patient did develop chest pain and should pain and became hypotensive with BP 50/30's despite multiple rounds of Neosynephrine. Eventually epinephrine was given with some temporary stabilization of BP while Impella was prepped. During this event he also went into Afib with RVR with HR 130-140's. Right femoral access was obtained with micropuncture technique and angiogram showed adequate anatomy for placement of Impella. 1 Perclose was placed. The sheath was upgraded to an 8Fr sheath then 14 Fr sheath using the stiff Impella wire. Next a 6Fr pigtail was used to cross the aortic valve and a 0.018 wire was placed in the LV. The Impella CP was placed over the wire into the LV. The wire was removed and the Impella was turned on with stabilization of his BP however without much pulsatility. Repeat angiogram showed sluggish flow in the circumflex and therefore decision was made to perform PCI of the circumflex at this point. Predilation was performed with a 3.0 x 20mm balloon. Next a 3.0 x 23mm Xience REYNALDO was placed in the mid circumflex. Next balloon a ngioplasty was performed of the proximal and mid LAD with some resultant antegrade flow. Next a 3.5 x 38mm Xience REYNALDO was placed at the LAD origin. BROOKS cuadal images showed concern of plaque shift into the origin of the circumflex and therefore IVUS of circumflex was performed which did not show any significant stenosis or dissection at the origin. IVUS LAD showed continued diffuse atherosclerosis of the mid LAD and therefore an additional 2.5 x 38mm Xience REYNALDO was placed in the mid LAD (jailing the diagonal 1 branch however with VISHAL 3 flow in the diagonal branch and no significant stenosis. Additional 3.0 x 12mm Xience REYNALDO was used to cover the overlap of the 2 stents in between them. The proximal to mid LAD stent was post dilated with a 3.5 NC balloon. There was still poor antegrade flow of the apical LAD. IVUS showed intraluminal wire and felt related to some more organized thrombus embolizing distally. Therefore Penumbra aspiration thrombectomy was performed for 2 runs with some improvement in flow. Additional balloon angioplasty was performed of the apex with a 2.0 x 15mm balloon with resultant VISHAL 3 flow. The wire was pulled and final angiograms were performed. Preintervention of the LAD there was 100% stenosis and VISHAL 0 flow and post intervention there was < 10% stenosis and VISHAL 3 flow. Preintervention of the circumflex there was 70% stenosis and VISHAL 3 flow and post intervention there was 0% stenosis and VISHAL 3 flow. Patient remained hypotensive and thought possibly related to Afib with RVR and therefore Amiodarone 150mg was given throughout procedure and Amiodarone drip was started. Additionally attempted synchronized cardioversion x 1 with 200J with resultant sinus rhythm however this only lasted approximately 5 mins and patient was back in Afib with RVR. He was still requiring the Impella and therefore Impella was sutured in place. The right radial sheath was removed and a TR band was placed with hemostasis achieved. Patient was transported back to the post catheterization holding area. Conscious Sedation: Patient was monitored under the direct supervision of myself for conscious sedation using Versed and fentanyl for a total duration of 120 minutes HEMODYNAMICS: Aorta: 94/52 LV:83/11, LVEDP 14 SELECTIVE CORONARY ARTERIOGRAPHY: LEFT MAIN: The left main is a large caliber vessel which bifurcates into the LAD and circumflex. There is no significant stenosis. LEFT ANTERIOR DESCENDING CORONARY ARTERY: LAD is a large caliber vessel which wraps around to the apex. There is 100% ostial LAD stenosis however appeared to have T shaped landing zone of the ostium. After ballooning there was diffuse mid LAD including a 90% stenosis at the level of the moderate caliber diagonal 1 branch and 100% stenosis of the apical LAD. LEFT CIRCUMFLEX CORONARY ARTERY: Left circumflex is a moderate caliber vessel which gives off a moderate caliber OM1 branch and then gives off an AV groove circumflex. There is a 70% stenosis of the mid circumflex into the OM1 branch. RIGHT CORONARY ARTERY: The right coronary artery is a moderate to large caliber vessel which gives off a PDA and PLV branch and is the dominant vessel. There 30-40% proximal RCA and otherwise mild luminal irregularities. There are right to left collaterals however appears to be diffuse disease of the mid LAD. FINAL IMPRESSION: 1. CAD as described above including ostial LAD 100% stenosis, diffuse mid LAD 90% stenosis, apical LAD 100% stenosis, 70% circumflex stenosis, 30-40% RCA stenosis 2. S/p PCI of proximal to mid LAD with overlapping 3.5 x 38mm, 3.0 x 12mm, 2.5 x 38mm Xience REYNALDO post dilated with a 3.5 NC balloon, balloon angioplasty of apical LAD with 2.0 balloon, Penumbra aspiration thrombectomy LAD, PCI mid circumflex with a 3.0 x 23mm Xience REYNALDO 3. Cardiogenic shock s/p Impella CP placement likely in part related to late presenting AK with distal embolization PLAN: 1. Aggressive risk factor modification per most recent ACC/AHA guidelines. 2. Continue dual antiplatelets with aspirin and Effient for 12 months. 3. Wean Impella as able.
[2023-04-16 21:32] LABS: Basophils % (A) 0 %; Eosinophils % (A) 0 %; HCT 41.8 % (39.0-53.0); HGB 14.1 gm/dL (13.0-17.5); Lymphocytes # (A) 0.9 k/uL (1.0-4.8); Lymphocytes % (A) 11 %; MCH 31.9 pg (25.0-35.0); MCHC 33.6 g/dL (31.0-37.0); MCV 94.9 fL (80.0-100.0); Monocytes # (A) 0.7 k/uL (0-1.0); Monocytes % (A) 9 %; Neutrophils # (A) 6.5 k/uL (1.3-7.7); Neutrophils % (A) 79 %; Platelet Count 166 k/uL (150-450); RBC 4.41 m/uL (4.30-5.90); RDW 12.8 % (11.5-15.5); WBC 8.3 k/uL (3.8-10.6)
[2023-04-16 21:44] LABS: Partial Thromboplastin Time 35.7 sec (22.0-30.0)
[2023-04-17 03:40] LABS: Basophils % (A) 0 %; Eosinophils # (A) 0.1 k/uL (0-0.7); Eosinophils % (A) 1 %; HCT 40.9 % (39.0-53.0); HGB 13.6 gm/dL (13.0-17.5); Lymphocytes % (A) 9 %; MCH 31.4 pg (25.0-35.0); MCHC 33.2 g/dL (31.0-37.0); MCV 94.6 fL (80.0-100.0); Mean Platelet Volume 8.4; Monocytes % (A) 9 %; Neutrophils # (A) 8.8 k/uL (1.3-7.7); Neutrophils % (A) 79 %; Platelet Count 147 k/uL (150-450); RBC 4.32 m/uL (4.30-5.90); RDW 13.1 % (11.5-15.5); WBC 11.1 k/uL (3.8-10.6)
[2023-04-17 04:26] LABS: African American GFR (CKD) >90 (>60 ml/min/1.73 sqM); Anion Gap 5 mmol/L; Blood Urea Nitrogen 14 mg/dL (9-20); Calcium 7.8 mg/dL (8.4-10.2); Carbon Dioxide 19 mmol/L (22-30); Chloride 108 mmol/L (98-107); Glucose 131 mg/dL (74-99); Non-African American GFR(CKD) >90 (>60 ml/min/1.73 sqM); Potassium 4.2 mmol/L (3.5-5.1); Sodium 132 mmol/L (137-145)
[2023-04-17 04:33] LABS: LDH 906 U/L (120-246)
[2023-04-17] MEDS: HEPARIN SODIUM 1,000 UN/ML (10ML VL) IV PRN ×2 (04:46→22:47)
[2023-04-17] MEDS: ALPRAZolam 0.5 MG TAB PO PRN (06:57)
--- NOTE | 2023-04-17 08:40 | P.PN ---
Subjective History of present illness: Patient is a pleasant 72-year-old male with significant past medical history of factor V leiden who presented with complaints of chest pain and elvated troponin. He does follow with Dr. Romano in the office and was seen in February with plans for outpatient stress testing and echo. He had previously been complaining of a burning sensation in his chest and a "raw lung discomfort" that radiates across his chest that he had been having for a couple years. He states the chest pain would typically last 1015 minutes and he is usually able to work through this pain and had been relatively stable. However, 3 days ago he was cutting his grass and developed more severe chest discomfort along with shortness of breath and diaphoresis. He had to take multiple breaks while cutting his grass and the chest pain lasted for approximately 1.5 hours, he then felt fatigued and had decreased appetite afterwards. His advised him to go to the emergency department at this time, however, patient refused. He called his PCP and saw PCP 2 days later and was told he had an abnormal EKG and to go to the emergency department. He is no longer having any chest pain. Troponin elevated 9.190, 9.420, 7.980. BNP 5700. Creatinine 0.82. EKG shows sinus rhythm with minimal ST depression. He had a venous Doppler that was negative for DVT in the left leg. Echocardiogram 04/15/23 shows ejection fraction 2530%, LV septal, anteroseptal and apical wall hypokinesis, mild mitral regurgitation, RVSP 36. 04/17 Patient seen and examined. Patient underwent heart catheterization and stenting of the LAD complicated by cardiogenic shock with Impella CP placement. Thought part related to his any [place] with distal embolization and diffuse disease of LAD. Initially he had very limited pulsatility however after catheterization and has maintained and able to be weaned on the Impella from P8 to P4. Was recently brought down to P2. Denies any significant dyspnea. He was restless throughout the night and not able to sleep. Denies any further chest pain. He did have episodes of A. fib during procedure with cardioversion during catheterization however returned A. fib and has been on amiodarone drip. Adequate urine output and has been receiving IV fluids. Creatinine stable at 0.6. REVIEW OF SYSTEMS: No fever or chills. No cough or expectoration. No diaphoresis. Patient denies headache, dizziness, blurred vision, double vision. Patient denies any stomach discomfort. No nausea, vomiting. No hematochezia. No hematemesis. Denies any black stools or blood in his stools. Denies dysuria or hematuria. No muscle weakness or numbness. No chest pain or pressure. PHYSICAL EXAMINATION: This is a 72-year-old male in no apparent distress at the time of my examination. HEENT: Head is atraumatic, normocephalic. Pupils are equal, round. Sclerae anicteric. Conjunctivae are clear. Mucous membranes of the mouth are moist. Neck is supple. There is no jugular venous distention. No carotid bruit is heard. CHEST EXAMINATION: Lungs are clear to auscultation. No chest wall tenderness is noted on palpation or with deep breathing. HEART EXAMINATION: Heart regular rate and rhythm. S1, S2 heard. No murmurs, gallops or rub. ABDOMEN: Soft, nontender. Bowel sounds are heard. No organomegaly noted. EXTREMITIES: 2+ peripheral pulses with no evidence of peripheral edema and no calf tenderness noted. NEUROLOGIC EXAMINATION: Patient is awake, alert and oriented x3. IMPRESSION AND PLAN: NSTEMI CAD s/p PCI LAD and circumflex 04/16 complicated by cardiogenic shock Cardiogenic shock s/p Impella placement Ischemic cardiomyopathy Paroxysmal Afib x 2 episodes Acute on chronic systolic heart failure, EF 2530% Chest pain, resolved Factor V Leiden PLAN: New dual antiplatelets with aspirin and Effient for 12 months Hold beta soo given cardiogenic shock Wean Impella and if tolerates P2 likely discontinue Impella today. Ideally add afterload reduction however monitor patient on Impella for now. Continue Amiodarone and transition to oral amio given did not tolerate Afib with RVR well Triple therapy with transition to NOAC for Afib once Impella has been discontinued. Objective - Vital Signs Vital signs: Vital Signs Temp 97.8 F 04/17/23 04:00 Pulse 83 04/17/23 07:00 Resp 25 H 04/17/23 07:00 BP 112/72 04/17/23 07:00 Pulse Ox 93 L 04/17/23 07:52 FiO2 Intake & Output 04/16/23 04/17/23 04/17/23 18:59 06:59 18:59 Intake Total 2045.708 1225.550 190.5 Output Total 500 500 Balance 1545.708 725.550 190.5 Weight 76.9 kg Intake: IV 1897 936 78 .9NS Pressure Bag 12 36 3 Sodium Chloride 0.9% 1, 375 900 75 000 ml In Empty Bag 1 bag @ 1 ML/KG/HR 75.296 mls/ hr IV .[id number] [facility] Rx#: [id number] Intake, IV Titration 148.708 289.550 12.5 Amount Heparin Sod,Pork in 0.45% 111.208 NaCl 25,000 unit In 0.45 % NaCl 1 250ml.bag @ 12 UNITS/KG/HR 9.036 mls/hr IV .Q24H [facility] Rx#: [id number] Heparin Sod,Pork in 0.45% 139.550 NaCl 25,000 unit In 0.45 % NaCl 1 250ml.bag @ 12 UNITS/KG/HR 9.036 mls/hr IV .Q24H [facility] Rx#: [id number] Sodium Bicarb (1 Meq/ml) 37.5 150.0 12.5 12.5 ml In Dextrose 5% in Water 500 ml @ Per Protocol IV DIRECTED [facility] Rx#:[id number] Oral 100 Output: Urine 500 500 Other: Voiding Method Urinal Urinal # Bowel Movements 1 ABP, PAP, CO, CI - Last Documented Arterial Blood Pressure 107/67 - Labs CBC & Chem 7: 04/17/23 03:21 04/17/23 03:21 Labs: Abnormal Lab Results - Last 24 Hours (Table) 04/16/23 04/16/23 04/16/23 Range/Units 14:43 15:25 15:25 WBC (3.8-10.6) k/uL Plt Count (150-450) k/uL Neutrophils # 8.5 H (1.3-7.7) k/uL Lymphocytes # 0.8 L (1.0-4.8) k/uL APTT (22.0-30.0) sec Sodium 133 L (137-145) mmol/L Chloride (98-107) mmol/L Carbon Dioxide 20 L (22-30) mmol/L Glucose 141 H (74-99) mg/dL POC Glucose (mg/dL) (70-110) mg/dL Calcium 8.0 L (8.4-10.2) mg/dL Lactate Dehydrogenase (120-246) U/L Urine WBC 6 H (0-5) /hpf Amorphous Sediment Moderate H (None) /hpf Urine Bacteria Few H (None) /hpf Urine Mucus Rare H (None) /hpf 04/16/23 04/16/23 04/16/23 Range/Units 15:36 16:27 20:52 WBC (3.8-10.6) k/uL Plt Count (150-450) k/uL Neutrophils # (1.3-7.7) k/uL Lymphocytes # (1.0-4.8) k/uL APTT 56.4 H 35.7 H (22.0-30.0) sec Sodium (137-145) mmol/L Chloride (98-107) mmol/L Carbon Dioxide (22-30) mmol/L Glucose (74-99) mg/dL POC Glucose (mg/dL) 167 H (70-110) mg/dL Calcium (8.4-10.2) mg/dL Lactate Dehydrogenase (120-246) U/L Urine WBC (0-5) /hpf Amorphous Sediment (None) /hpf Urine Bacteria (None) /hpf Urine Mucus (None) /hpf 04/16/23 04/16/23 04/17/23 Range/Units 20:52 20:52 03:21 WBC 11.1 H (3.8-10.6) k/uL Plt Count 147 L (150-450) k/uL Neutrophils # 8.8 H (1.3-7.7) k/uL Lymphocytes # 0.9 L (1.0-4.8) k/uL APTT (22.0-30.0) sec Sodium (137-145) mmol/L Chloride (98-107) mmol/L Carbon Dioxide (22-30) mmol/L Glucose (74-99) mg/dL POC Glucose (mg/dL) (70-110) mg/dL Calcium (8.4-10.2) mg/dL Lactate Dehydrogenase 910 H (120-246) U/L Urine WBC (0-5) /hpf Amorphous Sediment (None) /hpf Urine Bacteria (None) /hpf Urine Mucus (None) /hpf 04/17/23 04/17/23 Range/Units 03:21 03:21 WBC (3.8-10.6) k/uL Plt Count (150-450) k/uL Neutrophils # (1.3-7.7) k/uL Lymphocytes # (1.0-4.8) k/uL APTT 31.0 H (22.0-30.0) sec Sodium 132 L (137-145) mmol/L Chloride 108 H (98-107) mmol/L Carbon Dioxide 19 L (22-30) mmol/L Glucose 131 H (74-99) mg/dL POC Glucose (mg/dL) (70-110) mg/dL Calcium 7.8 L (8.4-10.2) mg/dL Lactate Dehydrogenase 906 H (120-246) U/L Urine WBC (0-5) /hpf Amorphous Sediment (None) /hpf Urine Bacteria (None) /hpf Urine Mucus (None) /hpf
[2023-04-17] MEDS: ASPIRIN 81 MG PO SCH (09:19)
[2023-04-17] MEDS: PRASUGREL 10 MG TAB PO SCH (09:19)
[2023-04-17] MEDS: ATORVASTATIN 80 MG TAB PO SCH (09:19)
[2023-04-17] MEDS: AMIODARONE 200 MG TAB PO SCH ×2 (09:19→20:27)
--- NOTE | 2023-04-17 11:08 | XR ---
EXAMINATION TYPE: XR chest 1V portable DATE OF EXAM: 04/17/2023 COMPARISON: 04/15/2023 INDICATION: LVAD placement TECHNIQUE: Single frontal view of the chest is obtained. FINDINGS: The heart size is normal. The pulmonary vasculature is slightly prominent. There is increasing lung markings through the upper lung causey. Correlate for volume overload Displacement of the device with radiopaque portions within the left ventricle proximal ascending thor acic aortic regions. IMPRESSION: 1. Volume overload. 2. Catheter device within the expected region of the left ventricle proximal ascending thoracic aorta
--- NOTE | 2023-04-17 11:16 | P.PN ---
Subjective Progress Note Date: 04/17/23 * 72-year-old gentleman with history of factor V on low-dose aspirin, no significant past medical history has been having intermittent chest pain for the last 2 months. Patient had followed up with cardiology outpatient and was scheduled for outpatient echocardiogram and stress test * Patient described midsternal chest pain that is worse with exertion and improved with rest * Patient said he was mowing his lawn 2 days prior when he started having midsternal chest pressure. He denied any radiation of pain. He denies any associated nausea, vomiting, excessive diaphoresis * Patient stated he has ongoing discomfort for several months for which he has already seen cardiology however workup is still pending * Workup in ER included EKG which showed sinus rhythm nonspecific ST segment changes * Upon presentation patient had initial troponin obtained which was 9.1, N- terminal proBNP 5700 * 04/16: Patient had echocardiogram completed which showed ejection fraction of 25%. Patient was taken for cardiac catheterization post cath patient was transferred to medical ICU. Patient is status post cardiac cath with Intal and place. Evaluated and bedside in medical ICU alert and oriented 4. Denies of chest pain, shortness of breath noted however no use of accessory muscle * 04/17:Patient seen and evaluated at bedside. Patient been treated for coronary artery disease, cardiogenic shock. Patient on Impella with plan to wean as tolerated. Continue patient on IV heparin, dual antiplatelet therapy initiate d, patient on amiodarone drip that will be weaned off in ICU Objective - Vital Signs Vital signs: Vital Signs Temp 98.6 F 04/17/23 08:00 Pulse 81 04/17/23 10:30 Resp 21 04/17/23 10:30 BP 113/80 04/17/23 10:30 Pulse Ox 94 L 04/17/23 10:30 FiO2 Intake & Output 04/16/23 04/17/23 04/17/23 18:59 06:59 18:59 Intake Total 2045.708 1225.550 409.3 Output Total 500 500 150 Balance 1545.708 725.550 259.3 Weight 76.9 kg Intake: IV 1897 936 296.8 .9NS Pressure Bag 12 36 12 Amiodarone 450 mg In 49.8 Dextrose 5% in Water 250 ml @ 0.5 MG/MIN 16.667 mls/hr IV .Q15H [facility] Rx#: [id number] Sodium Chloride 0.9% 1, 375 900 235 000 ml In Empty Bag 1 bag @ 1 ML/KG/HR 75.296 mls/ hr IV .[id number] [facility] Rx#: [id number] Intake, IV Titration 148.708 289.550 12.5 Amount Heparin Sod,Pork in 0.45% 111.208 NaCl 25,000 unit In 0.45 % NaCl 1 250ml.bag @ 12 UNITS/KG/HR 9.036 mls/hr IV .Q24H [facility] Rx#: [id number] Heparin Sod,Pork in 0.45% 139.550 NaCl 25,000 unit In 0.45 % NaCl 1 250ml.bag @ 12 UNITS/KG/HR 9.036 mls/hr IV .Q24H [facility] Rx#: [id number] Sodium Bicarb (1 Meq/ml) 37.5 150.0 12.5 12.5 ml In Dextrose 5% in Water 500 ml @ Per Protocol IV DIRECTED [facility] Rx#:[id number] Oral 100 Output: Urine 500 500 150 Other: Voiding Method Urinal Urinal Urinal # Voids 1 # Bowel Movements 1 ABP, PAP, CO, CI - Last Documented Arterial Blood Pressure 107/67 - Exam PHYSICAL EXAMINATION: GENERAL: The patient is alert and oriented x3, not in any acute distress. Well developed, well nourished. HEENT: Pupils are round and equally reacting to light. EOMI. No scleral icterus. CARDIOVASCULAR: S1 and S2 present. Impella in place PULMONARY: Decreased breath sounds bilaterally ABDOMEN: Soft, nontender, nondistended, normoactive bowel sounds. No palpable organomegaly. MUSCULOSKELETAL: No joint swelling or deformity. EXTREMITIES: No cyanosis, clubbing, or pedal edema. NEUROLOGICAL: Gross neurological examination did not reveal any focal deficits. - Labs CBC & Chem 7: 04/17/23 03:21 04/17/23 03:21 Labs: Abnormal Lab Results - Last 24 Hours (Table) 04/16/23 04/16/23 04/16/23 Range/Units 14:43 15:25 15:25 WBC (3.8-10.6) k/uL Plt Count (150-450) k/uL Neutrophils # 8.5 H (1.3-7.7) k/uL Lymphocytes # 0.8 L (1.0-4.8) k/uL APTT (22.0-30.0) sec Fibrinogen (200-500) mg/dL Sodium 133 L (137-145) mmol/L Chloride (98-107) mmol/L Carbon Dioxide 20 L (22-30) mmol/L Glucose 141 H (74-99) mg/dL POC Glucose (mg/dL) (70-110) mg/dL Calcium 8.0 L (8.4-10.2) mg/dL Lactate Dehydrogenase (120-246) U/L Urine WBC 6 H (0-5) /hpf Amorphous Sediment Moderate H (None) /hpf Urine Bacteria Few H (None) /hpf Urine Mucus Rare H (None) /hpf 04/16/23 04/16/23 04/16/23 Range/Units 15:36 16:27 20:52 WBC (3.8-10.6) k/uL Plt Count (150-450) k/uL Neutrophils # (1.3-7.7) k/uL Lymphocytes # (1.0-4.8) k/uL APTT 56.4 H 35.7 H (22.0-30.0) sec Fibrinogen (200-500) mg/dL Sodium (137-145) mmol/L Chloride (98-107) mmol/L Carbon Dioxide (22-30) mmol/L Glucose (74-99) mg/dL POC Glucose (mg/dL) 167 H (70-110) mg/dL Calcium (8.4-10.2) mg/dL Lactate Dehydrogenase (120-246) U/L Urine WBC (0-5) /hpf Amorphous Sediment (None) /hpf Urine Bacteria (None) /hpf Urine Mucus (None) /hpf 04/16/23 04/16/23 04/17/23 Range/Units 20:52 20:52 03:21 WBC 11.1 H (3.8-10.6) k/uL Plt Count 147 L (150-450) k/uL Neutrophils # 8.8 H (1.3-7.7) k/uL Lymphocytes # 0.9 L (1.0-4.8) k/uL APTT (22.0-30.0) sec Fibrinogen (200-500) mg/dL Sodium (137-145) mmol/L Chloride (98-107) mmol/L Carbon Dioxide (22-30) mmol/L Glucose (74-99) mg/dL POC Glucose (mg/dL) (70-110) mg/dL Calcium (8.4-10.2) mg/dL Lactate Dehydrogenase 910 H (120-246) U/L Urine WBC (0-5) /hpf Amorphous Sediment (None) /hpf Urine Bacteria (None) /hpf Urine Mucus (None) /hpf 04/17/23 04/17/23 04/17/23 Range/Units 03:21 03:21 09:09 WBC (3.8-10.6) k/uL Plt Count (150-450) k/uL Neutrophils # (1.3-7.7) k/uL Lymphocytes # (1.0-4.8) k/uL APTT 31.0 H (22.0-30.0) sec Fibrinogen 520 H (200-500) mg/dL Sodium 132 L (137-145) mmol/L Chloride 108 H (98-107) mmol/L Carbon Dioxide 19 L (22-30) mmol/L Glucose 131 H (74-99) mg/dL POC Glucose (mg/dL) (70-110) mg/dL Calcium 7.8 L (8.4-10.2) mg/dL Lactate Dehydrogenase 906 H (120-246) U/L Urine WBC (0-5) /hpf Amorphous Sediment (None) /hpf Urine Bacteria (None) /hpf Urine Mucus (None) /hpf 04/17/23 Range/Units 09:09 WBC (3.8-10.6) k/uL Plt Count (150-450) k/uL Neutrophils # (1.3-7.7) k/uL Lymphocytes # (1.0-4.8) k/uL APTT (22.0-30.0) sec Fibrinogen (200-500) mg/dL Sodium (137-145) mmol/L Chloride (98-107) mmol/L Carbon Dioxide (22-30) mmol/L Glucose (74-99) mg/dL POC Glucose (mg/dL) (70-110) mg/dL Calcium (8.4-10.2) mg/dL Lactate Dehydrogenase 952 H (120-246) U/L Urine WBC (0-5) /hpf Amorphous Sediment (None) /hpf Urine Bacteria (None) /hpf Urine Mucus (None) /hpf Assessment and Plan Assessment: Assessment and plan * Non-ST elevated [place] * coronary artery disease with PCI, multivessel coronary artery disease * Acute systolic heart failure * Status post IMPELLA post cardiac catheterization * History of factor V [place] * Consultation obtained from cardiology, patient transferred to medical ICU * Continue patient on IV heparin, patient started on IV amiodarone drip, continue aspirin , Lipitor ,Effient * Continue to monitor CBC and basic metabolic panel * Continue management in medical ICU * For acute onset congestive heart failure continue to monitor volume status, plan to wean off Impala per cardiology * Prognosis remains guarded
[2023-04-17] MEDS ORDERED: fentaNYL (PF) 50 MCG/ML 2 ML AMP ONE (12:03)
[2023-04-17] MEDS ORDERED: IV FLUID CONTINUATION 1,000 ML IV ONE (12:08)
[2023-04-17] MEDS: AMIODARONE 450 MG in DEXTROSE 5% IN WATER 250 ML IV SCH ×2 (12:13)
[2023-04-17] MEDS ORDERED: MIDAZOLAM 2 MG/2 ML VIAL IVP ONE (12:19)
[2023-04-17] MEDS ORDERED: fentaNYL (PF) 50 MCG/1 ML VIAL IVP ONE (12:19)
[2023-04-17 13:15] LABS: Chol/HDL Ratio 3.61 Ratio; LDL Cholesterol,Calculated 109.7 mg/dL (0.0-131.0); VLDL Calculation 11.76 mg/dL (5.00-40.00)
--- NOTE | 2023-04-17 14:21 | P.PCN ---
Description of Procedure: PROCEDURES PERFORMED: Left ventricular measurement, removal of Impella CP, Perclose closure right femoral artery INDICATION: S/p Cardiogenic shock CONSENT:I have discussed the risks, benefits and alternative therapies for the above-mentioned procedure and for both sedation/analgesia as well as necessary blood product administration, if indicated, as they pertain to this patient. The patient has indicated understanding and acceptance of the risks and procedures discussed. PROCEDURE: After the risks, benefits and alternatives of the above mentioned procedure explained in detail with the patient, informed consent was obtained. Patient was taken to the catheterization lab and prepped and draped in usual fashion. The Impella had been weaned to P2 and patient had tolerated well and therefore the Impella CP was removed from the LV, turned off then removed from the sheath. A 6Fr pigtail catheter was used to measure the LV perssue of 105/14, LVEDP 21 and systolic 107/61. The 14Fr sheath was removed and the preclose Perclose was deployed. There was still mild oozing and therefore an 8F Angioseal was placed with hemostasis achieved. The patient tolerated the procedure well. Patient was transported back to the post catheterization holding area in stable condition. Conscious Sedation: Patient was monitored under the direct supervision of myself for conscious sedation using Versed and fentanyl for a total duration of 10 minutes FINAL IMPRESSION: 1. S/p Impella CP removal and Perclose closure of right femoral arteriotomy 2. Mildly elevated left sided filling pressures
[2023-04-17] MEDS: HEPARIN SOD,PORK IN 0.45% NACL 25,000 UNIT in 0.45% NACL 1 250ML.BAG IV SCH ×2 (15:59→18:20)
[2023-04-17] MEDS: SODIUM BICARB (1 MEQ/ML) 12.5 ML in DEXTROSE 5% IN WATER 500 ML IV SCH ×2 (16:00)
--- NOTE | 2023-04-17 17:55 | CT ---
EXAMINATION TYPE: CT brain wo con DATE OF EXAM: 04/17/2023 COMPARISON: None HISTORY: uneven pupils post heart cath CT DLP: 1092.4 mGycm Automated exposure control for dose reduction was used. FINDINGS: The ventricles, basal cisterns and sulci over convexities are within normal limits and there is no ma ss effect or shift of midline structures No abnormal density is seen throughout the brain parenchyma and there is no acute intra or extra-axia l hemorrhage. The posterior fossa including the brainstem, fourth ventricle and cerebellar pontine angles appear gr ossly normal. The intraorbital contents appear normal and symmetric. Visualized paranasal sinuses and mastoid air cells are well aerated. IMPRESSION: No acute bleed or mass effect.
[2023-04-17] MEDS: ACETAMINOPHEN TAB 325 MG TAB PO PRN (20:50)
[2023-04-18 05:12] LABS: HCT 43.3 % (39.0-53.0); HGB 13.9 gm/dL (13.0-17.5); MCH 30.8 pg (25.0-35.0); MCHC 32.1 g/dL (31.0-37.0); Mean Platelet Volume 7.9; Platelet Count 140 k/uL (150-450); RBC 4.51 m/uL (4.30-5.90); RDW 12.7 % (11.5-15.5); WBC 10.4 k/uL (3.8-10.6)
[2023-04-18 05:20] LABS: African American GFR (CKD) >90 (>60 ml/min/1.73 sqM); Anion Gap 5 mmol/L; Blood Urea Nitrogen 13 mg/dL (9-20); Calcium 8.6 mg/dL (8.4-10.2); Carbon Dioxide 24 mmol/L (22-30); Chloride 105 mmol/L (98-107); Glucose 120 mg/dL (74-99); Non-African American GFR(CKD) 79 (>60 ml/min/1.73 sqM); Potassium 4.3 mmol/L (3.5-5.1); Sodium 134 mmol/L (137-145)
[2023-04-18] MEDS: HEPARIN SOD,PORK IN 0.45% NACL 25,000 UNIT in 0.45% NACL 1 250ML.BAG IV SCH ×2 (07:45→09:54)
[2023-04-18] MEDS: AMIODARONE 200 MG TAB PO SCH ×2 (09:04→20:11)
[2023-04-18] MEDS: FUROSEMIDE 20 MG TAB PO SCH (09:05)
[2023-04-18] MEDS: ASPIRIN 81 MG PO SCH (09:05)
[2023-04-18] MEDS: ATORVASTATIN 80 MG TAB PO SCH (09:05)
[2023-04-18] MEDS: PRASUGREL 10 MG TAB PO SCH (09:53)
--- NOTE | 2023-04-18 10:04 | PN ---
PROGRESS NOTE SUBJECTIVE: Mr. Maddox underwent stenting of an LAD with Impella support, ejection fraction is 20% to 25%. He is resting comfortably, breathing better. OBJECTIVE: VITALS: Stable. NECK: There is JVD of 1 cm, no carotid bruit. HEART: S1, S2 heard normally, short systolic murmur. LUNGS: Reveal fine bibasilar rales. ABDOMEN: Soft. EXTREMITIES: Lower extremities reveal diminished pulses. NEUROLOGIC: Central nervous system is normal. I am recommending that we will place him on 20 mg of Lasix, carvedilol 3.125 mg half tablet b.i.d., and losartan 12.5 mg at bedtime if his blood pressure systolic is more than 105. I discussed my thoughts in detail with the patient. Apparently, he had an episode of paroxysmal atrial fibrillation, but he is now in sinus rhythm. This was a very brief spell that he had. He is resting comfortably without symptoms at this time. We will check a CBC, BMP tomorrow. Prognosis remains guarded. MMODL / IJN: [id number] /
--- NOTE | 2023-04-18 12:40 | P.PN ---
Subjective Progress Note Date: 04/18/23 72-year-old gentleman with history of factor V on low-dose aspirin, no significant past medical history has been having intermittent chest pain for the last 2 months. Patient had followed up with cardiology outpatient and was scheduled for outpatient echocardiogram and stress test * Patient described midsternal chest pain that is worse with exertion and improved with rest * Patient said he was mowing his lawn 2 days prior when he started having midsternal chest pressure. He denied any radiation of pain. He denies any associated nausea, vomiting, excessive diaphoresis * Patient stated he has ongoing discomfort for several months for which he has already seen cardiology however workup is still pending * Workup in ER included EKG which showed sinus rhythm nonspecific ST segment changes * Upon presentation patient had initial troponin obtained which was 9.1, N- terminal proBNP 5700 * 04/16: Patient had echocardiogram completed which showed ejection fraction of 25%. Patient was taken for cardiac catheterization post cath patient was transferred to medical ICU. Patient is status post cardiac cath with Intal and place. Evaluated and bedside in medical ICU alert and oriented 4. Denies of chest pain, shortness of breath noted however no use of accessory muscle * 04/17:Patient seen and evaluated at bedside. Patient been treated for coronary artery disease, cardiogenic shock. Patient on Impella with plan to wean as tolerated. Continue patient on IV heparin, dual antiplatelet therapy initiated, patient on amiodarone drip that will be weaned off in ICU 04/18. Patient seen and examined. Currently on heparin. Patient started on Lasix oral this morning. Denies any lightheadedness or dizziness. Vital signs stable REVIEW OF SYSTEMS: CONSTITUTIONAL: No fever, no malaise,. CARDIOVASCULAR: No chest pain, no palpitations, no syncope. PULMONARY: No shortness of breath, no cough, GASTROINTESTINAL: No diarrhea, no nausea, no vomiting, no abdominal pain. NEUROLOGICAL: No headaches, no weakness, PHYSICAL EXAMINATION: GENERAL: The patient is alert and oriented x3, not in any acute distress. Well developed, well nourished. HEENT: Pupils are round and equally reacting to light. EOMI. No scleral icterus. No conjunctival pallor. Normocephalic, atraumatic. No pharyngeal erythema. No thyromegaly. CARDIOVASCULAR: S1 and S2 present. No murmurs, rubs, or gallops. PULMONARY: Chest is clear to auscultation, no wheezing or crackles. ABDOMEN: Soft, nontender, nondistended, normoactive bowel sounds. No palpable organomegaly. MUSCULOSKELETAL: No joint swelling or deformity. EXTREMITIES: No cyanosis, clubbing, or pedal edema. NEUROLOGICAL: Gross neurological examination did not reveal any focal deficits. SKIN: No rashes. Assessment and plan Non-ST elevated [place] * coronary artery disease with PCI, multivessel coronary artery disease * Acute systolic heart failure * Status post IMPELLA post cardiac catheterization * History of factor V Leyden Monitor vital signs Monitor CBC Monitor CMP Continue telemetry monitoring continue aspirin , Lipitor ,Effient Start Lasix 20 mg daily Continue amiodarone drip Continue heparin Follow-up on cardiology recommendations Follow-up on pulmonary recommendations Possible transfer from ICU tomorrow morning Labs and medication were reviewed.. Continue same treatment. Continue with symptomatic treatment. Resume home medication. Monitor labs and vitals. DVT and GI prophylaxis. Further recommendations as per clinical course of the patient Dictation was produced using [employer] dictation software. please excuse any grammatical, word or spelling errors. Objective - Vital Signs Vital signs: Vital Signs Temp 98.8 F 04/18/23 04:00 Pulse 85 04/18/23 07:00 Resp 25 H 04/18/23 07:00 BP 113/64 04/18/23 07:00 Pulse Ox 96 04/18/23 08:59 FiO2 Intake & Output 04/17/23 04/18/23 04/18/23 18:59 06:59 18:59 Intake Total 942.750 656.747 10 Output Total 720 650 0 Balance 222.750 6.747 10 Weight 78.9 kg Intake: IV 469.8 120 10 .9NS Pressure Bag 15 0.9 KVO 30 120 10 Amiodarone 450 mg In 49.8 Dextrose 5% in Water 250 ml @ 0.5 MG/MIN 16.667 mls/hr IV .Q15H [facility] Rx#: [id number] Sodium Chloride 0.9% 1, 275 000 ml In Empty Bag 1 bag @ 1 ML/KG/HR 75.296 mls/ hr IV .[id number] [facility] Rx#: [id number] Intake, IV Titration 372.950 56.747 Amount Amiodarone 450 mg In 250 Dextrose 5% in Water 250 ml @ 0.5 MG/MIN 16.667 mls/hr IV .Q15H [facility] Rx#: [id number] Heparin Sod,Pork in 0.45% 110.450 56.747 NaCl 25,000 unit In 0.45 % NaCl 1 250ml.bag @ 12 UNITS/KG/HR 9.036 mls/hr IV .Q24H [facility] Rx#: [id number] Sodium Bicarb (1 Meq/ml) 12.5 12.5 ml In Dextrose 5% in Water 500 ml @ Per Protocol IV DIRECTED [facility] Rx#:[id number] Oral 100 480 Output: Urine 720 650 0 Other: Voiding Method Urinal Urinal # Voids 1 1 ABP, PAP, CO, CI - Last Documented Arterial Blood Pressure 107/67 - Labs CBC & Chem 7: 04/18/23 03:49 04/18/23 03:49 Labs: Abnormal Lab Results - Last 24 Hours (Table) 04/17/23 04/17/23 04/17/23 Range/Units 09:09 09:09 11:37 Plt Count (150-450) k/uL APTT 62.3 H (22.0-30.0) sec Fibrinogen 520 H (200-500) mg/dL Sodium (137-145) mmol/L Glucose (74-99) mg/dL Lactate Dehydrogenase 952 H (120-246) U/L 04/17/23 04/17/23 04/18/23 Range/Units 14:52 21:41 03:49 Plt Count 140 L (150-450) k/uL APTT 43.2 H (22.0-30.0) sec Fibrinogen (200-500) mg/dL Sodium (137-145) mmol/L Glucose (74-99) mg/dL Lactate Dehydrogenase 979 H (120-246) U/L 04/18/23 04/18/23 Range/Units 03:49 03:49 Plt Count (150-450) k/uL APTT 71.5 H (22.0-30.0) sec Fibrinogen (200-500) mg/dL Sodium 134 L (137-145) mmol/L Glucose 120 H (74-99) mg/dL Lactate Dehydrogenase (120-246) U/L
[2023-04-18 15:04] VITALS: BMI 24.9
[2023-04-18] MEDS: ACETAMINOPHEN TAB 325 MG TAB PO PRN (16:56)
[2023-04-18] MEDS: LOSARTAN 25 MG TAB PO SCH (20:11)
[2023-04-19] MEDS ORDERED: HEPARIN SOD,PORK IN 0.45% NACL 25,000 UNIT in 0.45% NACL 1 250ML.BAG IV SCH (03:00)
[2023-04-19 06:17] LABS: HCT 40.1 % (39.0-53.0); MCH 31.3 pg (25.0-35.0); MCHC 32.5 g/dL (31.0-37.0); MCV 96.4 fL (80.0-100.0); Mean Platelet Volume 8.4; Platelet Count 150 k/uL (150-450); RBC 4.16 m/uL (4.30-5.90); RDW 12.8 % (11.5-15.5); WBC 8.4 k/uL (3.8-10.6)
[2023-04-19 06:41] LABS: African American GFR (CKD) >90 (>60 ml/min/1.73 sqM); Anion Gap 5 mmol/L; Blood Urea Nitrogen 16 mg/dL (9-20); Calcium 7.7 mg/dL (8.4-10.2); Carbon Dioxide 22 mmol/L (22-30); Chloride 106 mmol/L (98-107); Glucose 107 mg/dL (74-99); Non-African American GFR(CKD) 87 (>60 ml/min/1.73 sqM); Potassium 3.8 mmol/L (3.5-5.1); Sodium 133 mmol/L (137-145)
[2023-04-19] MEDS ORDERED: Potassium Replacement Protocol 1 EACH MISC MISCELLANE PRN (06:49)
[2023-04-19] MEDS ORDERED: POTASSIUM CHLORIDE ER 20 MEQ TAB.ER PO SCH (07:00)
[2023-04-19] MEDS ORDERED: CLOPIDOGREL 75 MG TAB PO STA (08:27)
[2023-04-19] MEDS: ASPIRIN 81 MG PO SCH (09:01)
[2023-04-19] MEDS: ATORVASTATIN 80 MG TAB PO SCH (09:01)
[2023-04-19] MEDS: FUROSEMIDE 20 MG TAB PO SCH (09:01)
[2023-04-19] MEDS: APIXABAN 5 MG TAB PO SCH ×2 (09:01→20:27)
[2023-04-19] MEDS: AMIODARONE 200 MG TAB PO SCH ×2 (09:01→20:26)
[2023-04-19] MEDS: carvediloL 3.125 MG TAB PO SCH ×2 (09:14→16:44)
--- NOTE | 2023-04-19 11:49 | P.PN ---
Subjective Progress Note Date: 04/19/23 * 72-year-old gentleman with history of factor V on low-dose aspirin, no significant past medical history has been having intermittent chest pain for the last 2 months. Patient had followed up with cardiology outpatient and was scheduled for outpatient echocardiogram and stress test * Patient described midsternal chest pain that is worse with exertion and improved with rest * Patient said he was mowing his lawn 2 days prior when he started having midsternal chest pressure. He denied any radiation of pain. He denies any associated nausea, vomiting, excessive diaphoresis * Patient stated he has ongoing discomfort for several months for which he has already seen cardiology however workup is still pending * Workup in ER included EKG which showed sinus rhythm nonspecific ST segment changes * Upon presentation patient had initial troponin obtained which was 9.1, N- terminal proBNP 5700 * 04/16: Patient had echocardiogram completed which showed ejection fraction of 25%. Patient was taken for cardiac catheterization post cath patient was transferred to medical ICU. Patient is status post cardiac cath with Intal and place. Evaluated and bedside in medical ICU alert and oriented 4. Denies of chest pain, shortness of breath noted however no use of accessory muscle * 04/17:Patient seen and evaluated at bedside. Patient been treated for coronary artery disease, cardiogenic shock. Patient on Impella with plan to wean as tolerated. Continue patient on IV heparin, dual antiplatelet therapy initiate d, patient on amiodarone drip that will be weaned off in ICU. * See documentation from 04/18 by another provider * 04/19: Patient seen and evaluated bedside. Patient Impella removed. Moved out of ICU K plan discussed with patient and at bedside Objective - Vital Signs Vital signs: Vital Signs Temp 98.7 F 04/19/23 08:00 Pulse 86 04/19/23 09:00 Resp 17 04/19/23 09:00 BP 105/72 04/19/23 08:00 Pulse Ox 95 04/19/23 08:00 FiO2 Intake & Output 04/18/23 04/19/23 04/19/23 18:59 06:59 18:59 Intake Total 799.273 120 20 Output Total 650 400 Balance 149.273 -280 20 Weight 78.9 kg 80.3 kg Intake: IV 110 120 20 0.9 KVO 110 120 20 Intake, IV Titration 159.273 Amount Heparin Sod,Pork in 0.45% 159.273 NaCl 25,000 unit In 0.45 % NaCl 1 250ml.bag @ 12 UNITS/KG/HR 9.036 mls/hr IV .Q24H [facility] Rx#: [id number] Oral 530 Output: Urine 650 400 Other: Voiding Method Urinal Toilet # Voids 1 ABP, PAP, CO, CI - Last Documented Arterial Blood Pressure 107/67 - Exam PHYSICAL EXAMINATION: GENERAL: The patient is alert and oriented x3, not in any acute distress. Well developed, well nourished. HEENT: Pupils are round and equally reacting to light. EOMI. No scleral icterus. CARDIOVASCULAR: S1 and S2 present. Impella removed PULMONARY: Decreased breath sounds bilaterally ABDOMEN: Soft, nontender, nondistended, normoactive bowel sounds. No palpable organomegaly. MUSCULOSKELETAL: No joint swelling or deformity. EXTREMITIES: No cyanosis, clubbing, or pedal edema. NEUROLOGICAL: Gross neurological examination did not reveal any focal deficits. - Labs CBC & Chem 7: 04/19/23 05:54 04/19/23 05:54 Labs: Abnormal Lab Results - Last 24 Hours (Table) 04/19/23 04/19/23 04/19/23 Range/Units 05:54 05:54 05:54 RBC 4.16 L (4.30-5.90) m/uL APTT 67.6 H (22.0-30.0) sec Sodium 133 L (137-145) mmol/L Glucose 107 H (74-99) mg/dL Calcium 7.7 L (8.4-10.2) mg/dL Assessment and Plan Assessment: Assessment and plan * Non-ST elevated [place] * coronary artery disease with PCI, multivessel coronary artery disease * Acute systolic heart failure * Status post IMPELLA post cardiac catheterization * History of factor V Leyden * Consultation obtained from cardiology, patient transferred to medical ICU * patient was on IV heparin transition to Eliquis, patient was started on IV amiodarone drip, transitioned to oral amiodarone * continue aspirin , Lipitor ,Effient * Continue to monitor CBC and basic metabolic panel * Continue management in medical ICU * For acute onset congestive heart failure continue to monitor volume status, off Impala per cardiology
[2023-04-19] MEDS: LOSARTAN 25 MG TAB PO SCH (20:27)
--- NOTE | 2023-04-20 05:18 | PN ---
PROGRESS NOTE SUBJECTIVE: This gentleman is doing better. He is tolerating the carvedilol well. He has paroxysmal atrial fibrillation. He is currently on Heparin drip, which I will discontinue. Switch him from Effient to Plavix and he will also be on Eliquis 5 mg b.i.d. No aspirin. He will be on a combination of Eliquis 5 mg b.i.d. and Plavix after loading it by 300 mg and we will discontinue Effient. He is doing well. We will increase activity, move him to telemetry today. OBJECTIVE: VITAL SIGNS: Stable. NECK: No JVD. HEART: S1, S2 heard normally. Short systolic murmur. LUNGS: Clear. ABDOMEN: Unchanged. LOWER EXTREMITIES: Unchanged. MMODL / IJN: [id number] /
[2023-04-20 06:04] LABS: HCT 36.8 % (39.0-53.0); HGB 12.2 gm/dL (13.0-17.5); MCH 31.4 pg (25.0-35.0); MCHC 33.2 g/dL (31.0-37.0); MCV 94.6 fL (80.0-100.0); Mean Platelet Volume 8.2; Platelet Count 169 k/uL (150-450); RBC 3.89 m/uL (4.30-5.90); RDW 12.7 % (11.5-15.5); WBC 7.2 k/uL (3.8-10.6)
[2023-04-20 06:11] LABS: African American GFR (CKD) >90 (>60 ml/min/1.73 sqM); Anion Gap 7 mmol/L; Blood Urea Nitrogen 18 mg/dL (9-20); Carbon Dioxide 21 mmol/L (22-30); Chloride 105 mmol/L (98-107); Glucose 101 mg/dL (74-99); Non-African American GFR(CKD) 84 (>60 ml/min/1.73 sqM); Potassium 3.8 mmol/L (3.5-5.1); Sodium 133 mmol/L (137-145)
[2023-04-20] MEDS: carvediloL 3.125 MG TAB PO SCH (06:50)
[2023-04-20] MEDS ORDERED: POTASSIUM CHLORIDE ER 20 MEQ TAB.ER PO SCH (07:00)
[2023-04-20] MEDS: ASPIRIN 81 MG PO SCH (08:23)
[2023-04-20] MEDS: APIXABAN 5 MG TAB PO SCH (08:23)
[2023-04-20] MEDS: FUROSEMIDE 20 MG TAB PO SCH (08:23)
[2023-04-20] MEDS: ATORVASTATIN 80 MG TAB PO SCH (08:23)
[2023-04-20] MEDS ORDERED: CLOPIDOGREL 75 MG TAB PO SCH (09:00)
[2023-04-20] MEDS ORDERED: AMIODARONE 200 MG TAB PO SCH (09:00)
[2023-04-20 09:23] VITALS: RESP 20
--- NOTE | 2023-04-20 12:17 | P.DS ---
Providers Date of admission: 04/15/23 13:30 Expected date of discharge: 04/20/23 Attending physician: Jarad Cordova Consults: 04/15/23 13:29 Consult Physician Urgent Consulting Provider: Wong Romano Consult Reason/Comments: NSTEMI Do you want consulting provider notified?: Yes 04/16/23 13:58 Consult Physician Routine Consulting Provider: [facility] Consult Reason/Comments: Post Interventional Patient Do you want consulting provider notified?: Already Contacted Primary care physician: Alex Camacho [facility] Course: * 72-year-old gentleman with history of factor V on low-dose aspirin, no significant past medical history has been having intermittent chest pain for the last 2 months. Patient had followed up with cardiology outpatient and was scheduled for outpatient echocardiogram and stress test * Patient described midsternal chest pain that is worse with exertion and improved with rest * Patient said he was mowing his lawn 2 days prior when he started having midsternal chest pressure. He denied any radiation of pain. He denies any associated nausea, vomiting, excessive diaphoresis * Patient stated he has ongoing discomfort for several months for which he has already seen cardiology however workup is still pending * Workup in ER included EKG which showed sinus rhythm nonspecific ST segment changes * Upon presentation patient had initial troponin obtained which was 9.1, N- terminal proBNP 5700 * 04/16: Patient had echocardiogram completed which showed ejection fraction of 25%. Patient was taken for cardiac catheterization post cath patient was transferred to medical ICU. Patient is status post cardiac cath with Intal and place. Evaluated and bedside in medical ICU alert and oriented 4. Denies of chest pain, shortness of breath noted however no use of accessory muscle * 04/17:Patient seen and evaluated at bedside. Patient been treated for coronary artery disease, cardiogenic shock. Patient on Impella with plan to wean as tolerated. Continue patient on IV heparin, dual antiplatelet therapy initiated, patient on amiodarone drip that will be weaned off in ICU. * See documentation from 04/18 by another provider * 04/19: Patient seen and evaluated bedside. Patient Impella removed. Moved out of ICU K plan discussed with patient and at bedside * 04/20: Patient seen and evaluated bedside. Patient cleared by cardiology for discharge. Hemodynamically stable asymptomatic PHYSICAL EXAMINATION: GENERAL: The patient is alert and oriented x3, not in any acute distress. Well developed, well nourished. HEENT: Pupils are round and equally reacting to light. EOMI. No scleral icterus. CARDIOVASCULAR: S1 and S2 present. Impella removed PULMONARY: Decreased breath sounds bilaterally ABDOMEN: Soft, nontender, nondistended, normoactive bowel sounds. No palpable organomegaly. MUSCULOSKELETAL: No joint swelling or deformity. EXTREMITIES: No cyanosis, clubbing, or pedal edema. NEUROLOGICAL: Gross neurological examination did not reveal any focal deficits. Assessment: Assessment and plan * Non-ST elevated [place] * coronary artery disease with PCI, multivessel coronary artery disease * Acute systolic heart failure * Status post IMPELLA post cardiac catheterization * History of factor V Leyden * Consultation obtained from cardiology, patient transferred to medical ICU * patient was on IV heparin transition to Eliquis, patient was started on IV amiodarone drip, transitioned to oral amiodarone * Continue Lipitor plavix * Continue to monitor CBC and basic metabolic panel * Continue management in medical ICU * For acute onset congestive heart failure continue to monitor volume status, off Impala per cardiology * Per cardiology recommendation discharged on Plavix, Eliquis, Lasix, Cozaar, metoprolol Patient Condition at Discharge: Stable Plan - Discharge Summary Discharge Rx Participant: No New Discharge Prescriptions: No Action Aspirin EC [Ecotrin Low Dose] 81 mg PO DAILY Fluticasone Nasal [place] [Flonase Nasal [place]] 1 - 2 spr EA NOSTRIL BID PRN PRN Reason: Allergy Symptoms Discharge Medication List Fluticasone Nasal [place] [Flonase Nasal [place]] 1 - 2 spr EA NOSTRIL BID PRN 04/15/23 [History] Amiodarone [Cordarone] 200 mg PO BID 30 Days #60 tab 04/20/23 [Rx] Apixaban [Eliquis] 5 mg PO BID 30 Days #60 tab 04/20/23 [Rx] Atorvastatin [Lipitor] 80 mg PO DAILY 30 Days #30 tab 04/20/23 [Rx] Clopidogrel [Plavix] 75 mg PO DAILY 90 Days #90 tab 04/20/23 [Rx] Furosemide [Lasix] 20 mg PO DAILY 30 Days #30 tab 04/20/23 [Rx] Losartan [Cozaar] 12.5 mg PO HS 30 Days #15 tab 04/20/23 [Rx] Nitroglycerin Sl Tabs [Nitrostat] 0.4 mg SUBLINGUAL Q5M PRN 30 Days #30 tab 04/20/23 [Rx] carvediloL [Coreg] 3.125 mg PO BID-W/MEALS 30 Days #60 tab 04/20/23 [Rx] Follow up Appointment(s)/Referral(s): Wong Romano DO [STAFF PHYSICIAN] - 1 Week Alex Meza [Primary Care Provider] - 04/22/23 10:00 am Patient Instructions/Handouts: Heart Attack (DC), Heart Healthy Diet (DC)
[2023-04-20 12:19] VITALS: BP 106/68; PULSE 76; TEMP 98.1
--- NOTE | 2023-04-20 13:04 | PN ---
PROGRESS NOTE SUBJECTIVE: Mr. Maddox is status post stenting of LAD with Impella support. He is doing well. He is tolerating the current medical regimen well. No symptoms. OBJECTIVE: VITAL SIGNS: Stable. HEART: S1, S2 heard normally. LUNGS: Clear. ABDOMEN: Unchanged. LOWER EXTREMITIES: Unchanged. PLAN: Plan is to increase activity, discharge him, and he will see Dr. Romano in 1 week. MMODL / IJN: [id number] /
== END 2023-04-20 15:10 | disposition home or self-care (01) | DRG 215 ==
LOC: EC 10:58 → 3SCARD 13:30 → 2SICU 04-16 13:10
PROVIDERS: ADMIT Hospitalist; ATTEND Hospitalist
PROC: 5A0221D Assistance with Cardiac Output using Impeller Pump, Continuous (ICD-10-PCS; principal; 2023-04-16 10:07)
PROC: 03CY3ZZ Extirpation of Matter from Upper Artery, Percutaneous Approach (ICD-10-PCS; principal; 2023-04-16 10:07)
PROC: B240ZZ3 Ultrasonography of Single Coronary Artery, Intravascular (ICD-10-PCS; principal; 2023-04-16 10:07)
PROC: 5A2204Z Restoration of Cardiac Rhythm, Single (ICD-10-PCS; principal; 2023-04-16 10:07)
PROC: 027137Z Dilation of Coronary Artery, Two Arteries with Four or More Drug-eluting Intraluminal Devices, Percutaneous Approach (ICD-10-PCS; principal; 2023-04-16 10:07)
PROC: B2111ZZ Fluoroscopy of Multiple Coronary Arteries using Low Osmolar Contrast (ICD-10-PCS; principal; 2023-04-16 10:07)
PROC: 3E043XZ Introduction of Vasopressor into Central Vein, Percutaneous Approach (ICD-10-PCS; principal; 2023-04-16 10:07)
PROC: 4A023N7 Measurement of Cardiac Sampling and Pressure, Left Heart, Percutaneous Approach (ICD-10-PCS; principal; 2023-04-16 10:07)
PROC: 02HA3RZ Insertion of Short-term External Heart Assist System into Heart, Percutaneous Approach (ICD-10-PCS; 2023-04-16 10:07)
PROC: 5A0221D Assistance with Cardiac Output using Impeller Pump, Continuous (ICD-10-PCS; 2023-04-16 10:07)
PROC: 02PA3RZ Removal of Short-term External Heart Assist System from Heart, Percutaneous Approach (ICD-10-PCS; 2023-04-17)
DX: I21.4 Non-ST elevation (NSTEMI) myocardial infarction (principal); I50.23 Acute on chronic systolic (congestive) heart failure; R57.0 Cardiogenic shock; D68.51 Activated protein C resistance; I42.9 Cardiomyopathy, unspecified; I11.0 Hypertensive heart disease with heart failure; I25.10 Atherosclerotic heart disease of native coronary artery without angina pectoris; I25.5 Ischemic cardiomyopathy; I48.0 Paroxysmal atrial fibrillation; I49.3 Ventricular premature depolarization; Z79.01 Long term (current) use of anticoagulants; Z79.82 Long term (current) use of aspirin; Z87.891 Personal history of nicotine dependence; Z96.642 Presence of left artificial hip joint; Z28.310 Unvaccinated for COVID-19; Z71.3 Dietary counseling and surveillance
CPT/HCPCS: 33990; 33992; 36415; 70450; 71045; 71046; 80048; 80053; 80061; 81001; 83605; 83615; 83735; 83880; 84484; 85025; 85027; 85384; 85610; 85730; 92973; 92978; 92979; 93005; 93306; 93308; 93458; 94760; 96365; 96366; 96374; 99291

== ENCOUNTER → 2023-07-19 | Outpatient (CLI) | payer MEDICARE ==
[2023-07-19 15:49] LABS: ALT 22 U/L (10-49); AST 20 U/L (14-35); Albumin 4.3 g/dL (3.8-4.9); Albumin/Globulin Ratio 1.54 Ratio (1.60-3.17); Alkaline Phosphatase 74 U/L (41-126); BUN/Creat Ratio 13.22 Ratio (12.00-20.00); Blood Urea Nitrogen 11.9 mg/dL (9.0-27.0); Calcium 9.4 mg/dL (8.7-10.3); Carbon Dioxide 26.3 mmol/L (21.6-31.8); Chloride 104 mmol/L (96-109); Chol/HDL Ratio 2.36 Ratio; Globulin 2.8 g/dL (1.6-3.3); Glucose 103 mg/dL (70-110); LDL Cholesterol,Calculated 39.2 mg/dL (0.0-131.0); Potassium 4.9 mmol/L (3.5-5.5); Sodium 141 mmol/L (135-145); Total Bilirubin 0.5 mg/dL (0.3-1.2); Total Protein 7.1 g/dL (6.2-8.2); VLDL Calculation 9.84 mg/dL (5.00-40.00)
== END | disposition home or self-care (01) ==
LOC: LABWHC1 08:02
PROVIDERS: ATTEND Family Medicine
DX: E78.00 Pure hypercholesterolemia, unspecified (principal)
CPT/HCPCS: 36415; 80053; 80061

== ENCOUNTER 2023-09-23 01:54 | Inpatient (IN) | payer MEDICARE ==
--- NOTE | 2023-09-23 02:44 | ED ---
Abdominal Pain HPI - General Source: patient Mode of arrival: ambulatory Limitations: no limitations <Erma Infante - Last Filed: 09/23/23 02:44> - General Source: patient, RN notes reviewed, old records reviewed <Anthony Larry - Last Filed: 09/23/23 08:20> - General Chief Complaint: Abdominal Pain Stated Complaint: Severe rib/back pain, spasm Time Seen by Provider: 09/23/23 02:44 - History of Present Illness Initial Comments: 73-year-old male presenting with chief complaint of upper abdominal and lower rib pain that has been ongoing for several days. Feels like a tightness and a spasming pain. Worse with deep breaths. (Erma Infante) Patient is a 73-year-old male who presents emergency department complaining of chest wall discomfort. States he is having pain with movement with radiation of lower rib discomfort from his mid back around the lower ribs to towards his front. Right worse than left. Seems to consolidate in the middle of his back. Does have a history of recent cardiac stents in April 2023. States that this pain is different from that time, as it was more burning then, slightly di fferent location, as well as he felt fatigue at that time. His current symptoms have been ongoing for approximately 7 days. Significantly worsened on Tuesday (it is currently Tuesday morning). Denies any dyspnea. Denies any fevers, cough, congestion. Denies any nausea or vomiting. Denies any diaphoresis. Denies any radiation to the shoulders or arms. Presents for further evaluation at this time. Originally evaluated as a quick note where workup was started. Pain seems to be worse with deep breaths as well as movements per patient and it feels like a spasming pain of the chest wall. Somewhat worse on palpation as well. (Anthony Larry) - Related Data Home Medications Medication Instructions Recorded Confirmed Fluticasone Nasal [place] [Flonase 1 spr EA NOSTRIL HS 04/15/23 09/23/23 Nasal [place]] Atorvastatin [Lipitor] 20 mg PO DIRECTED 09/23/23 09/23/23 Cholecalciferol (Vitamin D3) 50 mcg PO DAILY 09/23/23 09/23/23 [Vitamin D3 (50 Mcg = 2000 Iu)] Cyanocobalamin (Vitamin B-12) 1,000 mcg PO DAILY 09/23/23 09/23/23 [Vitamin B-12] Spironolactone [Aldactone] 25 mg PO DAILY 09/23/23 09/23/23 Ubidecarenone [Coenzyme Q10] 200 mg PO HS 09/23/23 09/23/23 Previous Rx's Medication Instructions Recorded Apixaban [Eliquis] 5 mg PO BID 30 Days #60 tab 04/20/23 Clopidogrel [Plavix] 75 mg PO DAILY 90 Days #90 tab 04/20/23 Losartan [Cozaar] 12.5 mg PO HS 30 Days #15 tab 04/20/23 Nitroglycerin Sl Tabs [Nitrostat] 0.4 mg SUBLINGUAL Q5M PRN 30 Days 04/20/23 #30 tab carvediloL [Coreg] 3.125 mg PO BID-W/MEALS 30 Days 04/20/23 #60 tab Allergies Allergy/AdvReac Type Severity Reaction Status Date / Time No Known Allergies Allergy Verified 09/23/23 07:40 Review of Systems ROS Other: All systems not noted in ROS Statement are negative. <Erma Infante - Last Filed: 09/23/23 02:44> ROS Other: All systems not noted in ROS Statement are negative. <Anthony Larry - Last Filed: 09/23/23 08:20> ROS Statement: Those systems with pertinent positive or pertinent negative responses have been documented in the HPI. Review of Systems: CONST: Denies fever EYES: Denies blurry vision ENT: Denies nasal congestion C/V: Endorses chest wall pain RESP: Denies shortness of breath GI: Denies abdominal pain : Denies dysuria SKIN: Denies rash. MSK: Denies joint pain. NEURO: Denies headache (Anthony Larry) Past Medical History Past Medical History: Myocardial Infarction (DE) Additional Past Medical History / Comment(s): Factor 5- takes low dose aspirin History of Any Multi-Drug Resistant Organisms: None Reported Past Surgical History: Heart Catheterization, Heart Catheterization With Stent Additional Past Surgical History / Comment(s): left hip replacement 2020, hernia repair 2013, colonoscopy, right ankle tendon repair, Past Anesthesia/Blood Transfusion Reactions: No Reported Reaction Past Psychological History: No Psychological Hx Reported Smoking Status: Former smoker Past Alcohol Use History: None Reported, Occasional Past Drug Use History: None Reported <Erma Infante - Last Filed: 09/23/23 02:44> General Exam Limitations: no limitations <Erma Infante - Last Filed: 09/23/23 02:44> <Anthony Larry - Last Filed: 09/23/23 08:20> - General Exam Comments Initial Comments: Visual Physical Exam Vital signs reviewed General: Well-appearing, nontoxic, no acute distress. Head: Normocephalic, atraumatic Eyes: PERRLA, EOMI ENT: Airway patent Chest: Nonlabored breathing Skin: No visual rash, normal skin tone Neuro: Alert and oriented 3 Musculoskeletal: No gross abnormalities (Erma Infante) General: Appears in mild distress secondary to chest wall pain. HEAD: Normal with no signs of head trauma. EYES: PERRLA, EOMI, conjunctiva normal, no discharge. ENT: Hearing grossly intact, normal oropharynx. RESPIRATORY: Clear breath sounds bilaterally. No wheezes, rales, or rhonchi. C/V: Regular rate and rhythm. S1 and S2 auscultated, no edema, peripheral pulses 2+ and intact throughout. Patient has reproducible chest wall tenderness to palpation along the inferior most ribs radiating along the intercostal space towards the paraspinal muscles in the mid thoracic spine. No obvious step-offs or deformities of the thoracic spine. ABD: Abd is soft, nontender, nondistended EXT: Normal range of motion, no obvious deformity. No midline cervical, thoracic, lumbar spine tenderness to palpation. SKIN: No rashes or lesions observed on exposed skin. NEURO: Alert and oriented x 4. No obvious deficits. (Anthony Larry) Course Vital Signs 09/23/23 02:38 Temperature 99 F Pulse Rate 75 Respiratory 18 Rate Blood Pressure 131/84 O2 Sat by Pulse 98 Oximetry Medical Decision Making <Erma Infante - Last Filed: 09/23/23 02:44> - Lab Data Result diagrams: 09/23/23 02:50 09/23/23 02:50 - EKG Data -: EKG Interpreted by Me <Anthony Larry - Last Filed: 09/23/23 08:20> - Medical Decision Making I performed the quick note portion of this visit, electronically signed Erma Infante PA-C (Erma Infante) Was pt. sent in by a medical professional or institution (NICOLE Dodd, W[employer]TER FABRICATOR, urgent care, hospital, or senior care...) When possible be specific @ -No Did you speak to anyone other than the patient for history (EMS, parent, family, police, friend...)? What history was obtained from this source @ -No Did you review nursing and triage notes (agree or disagree)? Why? @ -I reviewed and agree with nursing and triage notes Were old charts reviewed (outside hosp., previous admission, EMS record, old EKG, old radiological studies, urgent care reports/EKG's, senior care records)? Report findings @ -Old charts reviewed Differential Diagnosis (chest pain, altered mental status, abdominal pain women, abdominal pain men, vaginal bleeding, weakness, fever, dyspnea, syncope, headache, dizziness, GI bleed, back pain, seizure, CVA, palpatations, mental health, musculoskeletal)? @ -Differential Chest Pain: Stable Angina, Unstable Angina, STEMI, NSTEMI Aortic Dissection, Pneumothorax, Musculoskeletal, Esophageal Spasm GERD, Cholecystitis, Pancreatitis, Zoster, this is not meant to be an all-inclusive list. EKG interpreted by me (3pts min.). @ -As above X-rays interpreted by me (1pt min.). @ -Chest x-ray reveals no obvious acute cardiopulmonary process. CT interpreted by me (1pt min.). @ -CT angiogram reveals no evidence of obvious acute aortic injury or dissection. U/S interpreted by me (1pt. min.). @ -None done What testing was considered but not performed or refused? (CT, X-rays, U/S, labs)? Why? @ -None What meds were considered but not given or refused? Why? @ -Considered initiating heparin, however after discussing with JOVANNA Adams of cardiology who was rounding with Dr. Jackman, they agree this seems not to be cardiac type chest pain. They recommended continuing with home Eliquis at this time which will be done. Did you discuss the management of the patient with other professionals (professionals i.e. NICOLE Dodd, [employer] F[employer]RICATOR, lab, RT, psych nurse, social media campaign manager, director quality assurance, teacher, industrial relations officer, medical case worker)? Give summary @ -I spoke with the admitting team, JOVANNA Angelo of [facility] who accepted the admission. I spoke with cardiology, JOVANNA Adams who is currently rounding with Dr. Jackman and informed them of the consult. They both agreed to evaluate the patient. They agree that it seems noncardiac in terms of the chest pain. We discussed initiating a heparin drip however they recommend Eliquis at this time and trending the troponin. This will be done. Patient will be given an aspirin. Patient will be admitted for further cardiology evaluation. Was smoking cessation discussed for >3mins.? @ -No Was critical care preformed (if so, how long)? @ -Yes, 35 minutes. Were there social determinants of health that impacted care today? How? (Homelessness, low income, unemployed, alcoholism, drug addiction, t ransportation, low edu. Level, literacy, decrease access to med. care, long term, rehab)? @ -No Was there de-escalation of care discussed even if they declined (Discuss DNR or withdrawal of care, Hospice)? DNR status @ -No What co-morbidities impacted this encounter? (DM, HTN, Smoking, COPD, CAD, Cance r, CVA, ARF, Chemo, Hep., AIDS, mental health diagnosis, sleep apnea, morbid obesity)? @ -CAD Was patient admitted / discharged? Hospital course, mention meds given and route, prescriptions, significant lab abnormalities, going to OR and other pertinent info. @ -Based on the patient's presentation and physical exam, concern for possible atypical ACS presentation versus abdominal pain. Originally seen as a quick note. I did evaluate EKG when a quick note was obtained and it showed the chronic left bundle branch block without any obvious morphologies to suggest acute ischemia. Was in agreement with the workup. I evaluated the patient when he was placed in room after labs returned. Vital signs remained within acceptable limits. Pain seems to be more like chest wall discomfort, either musculoskeletal or nerve related but cannot rule out possible aortic injury as the cause considering he keeps coming back to having mid back pain. States this does not feel like his prior DE. He has been compliant with medications. I did discuss with him and we will obtain CT imaging prior to initiating heparin to rule out any aortic injury such as aortic dissection. Patient does have a history of factor V Leyden and is on Eliquis. He was in agreement this plan. Vital signs other than the elevated troponin which I was made aware are within acceptable limits. Patient has a troponin of 0.113. He was in agreement this plan. We will attempt nitroglycerin tablets initially to see if that improves his chest pain as well. Patient was in agreement the plan. Nitro tablets nothing for the patient's pain. Repeat troponin is flat at 0.114. There is a long delay in obtaining results of the CT imaging. I did not see any obvious evidence of aortic dissection but I was awaiting radiology confirmation. Patient was administered IV morphine for analgesia which did improve the patient's chest pain. He was resting comfortably at this time remaining hemodynamically stable.CT imaging negative for any obvious aortic dissection or injury. Patient given a dose of an aspirin.. Cardiology consulted. I spoke with the admitting team, JOVANNA Angelo of [facility] who accepted the admission. I spoke with cardiology, JOVANNA Adams who is currently rounding with Dr. Jackman and informed them of the consult. They both agreed to evaluate the patient. They agree that it seems noncardiac in terms of the chest pain. We discussed initiating a heparin drip however they recommend Eliquis at this time and tr ending the troponin. This will be done. Patient will be given an aspirin. Patient will be admitted for further cardiology evaluation. Undiagnosed new problem with uncertain prognosis? @ -No Drug Therapy requiring intensive monitoring for toxicity (Heparin, Nitro, Insulin, Cardizem)? @ -No Were any procedures done? @ -No Diagnosis/symptom? @ -NSTEMI, atypical chest pain, chest wall pain Acute, or Chronic, or Acute on Chronic? @ -Acute Uncomplicated (without systemic symptoms) or Complicated (systemic symptoms)? @ -Complicated Side effects of treatment? @ -None Exacerbation, Progression, or Severe Exacerbation] @ -No Poses a threat to life or bodily function? @ -Yes (Anthony Larry) - Lab Data Lab Results 09/23/23 09/23/23 09/23/23 Range/Units 02:50 02:50 02:50 WBC 8.0 (3.8-10.6) k/uL RBC 4.42 (4.30-5.90) m/uL Hgb 14.3 (13.0-17.5) gm/dL Hct 43.4 (39.0-53.0) % MCV 98.2 (80.0-100.0) fL MCH 32.4 (25.0-35.0) pg MCHC 32.9 (31.0-37.0) g/dL RDW 12.3 (11.5-15.5) % Plt Count 246 (150-450) k/uL MPV 7.8 Neutrophils % 75 % Lymphocytes % 12 % Monocytes % 9 % Eosinophils % 1 % Basophils % 0 % Neutrophils # 6.0 (1.3-7.7) k/uL Lymphocytes # 1.0 (1.0-4.8) k/uL Monocytes # 0.7 (0-1.0) k/uL Eosinophils # 0.1 (0-0.7) k/uL Basophils # 0.0 (0-0.2) k/uL Sodium 139 (137-145) mmol/L Potassium 4.7 (3.5-5.1) mmol/L Chloride 105 (98-107) mmol/L Carbon Dioxide 26 (22-30) mmol/L Anion Gap 8 mmol/L BUN 17 (9-20) mg/dL Creatinine 0.62 L (0.66-1.25) mg/dL Est GFR (CKD-EPI)AfAm >90 (>60 ml/min/1.73 sqM) Est GFR (CKD-EPI)NonAf >90 (>60 ml/min/1.73 sqM) Glucose 107 H (74-99) mg/dL Plasma Lactic Acid Chase 0.7 (0.7-2.0) mmol/L Calcium 9.0 (8.4-10.2) mg/dL Magnesium 2.0 (1.6-2.3) mg/dL Total Bilirubin 0.5 (0.2-1.3) mg/dL AST 29 (17-59) U/L ALT 21 (4-49) U/L Alkaline Phosphatase 74 (38-126) U/L Troponin I (0.000-0.034) ng/mL NT-Pro-B Natriuret Pep pg/mL Total Protein 7.6 (6.3-8.2) g/dL Albumin 4.1 (3.5-5.0) g/dL Amylase 55 (30-110) U/L Lipase 139 (23-300) U/L Urine Color Urine Appearance (Clear) Urine pH (5.0-8.0) Ur Specific [place] (1.001-1.035) Urine Protein (Negative) Urine Glucose (UA) (Negative) Urine Ketones (Negative) Urine Blood (Negative) Urine Nitrite (Negative) Urine Bilirubin (Negative) Urine Urobilinogen (<2.0) mg/dL Ur Leukocyte Esterase (Negative) 09/23/23 09/23/23 09/23/23 Range/Units 02:50 02:50 05:46 WBC (3.8-10.6) k/uL RBC (4.30-5.90) m/uL Hgb (13.0-17.5) gm/dL Hct (39.0-53.0) % MCV (80.0-100.0) fL MCH (25.0-35.0) pg MCHC (31.0-37.0) g/dL RDW (11.5-15.5) % Plt Count (150-450) k/uL MPV Neutrophils % % Lymphocytes % % Monocytes % % Eosinophils % % Basophils % % Neutrophils # (1.3-7.7) k/uL Lymphocytes # (1.0-4.8) k/uL Monocytes # (0-1.0) k/uL Eosinophils # (0-0.7) k/uL Basophils # (0-0.2) k/uL Sodium (137-145) mmol/L Potassium (3.5-5.1) mmol/L Chloride (98-107) mmol/L Carbon Dioxide (22-30) mmol/L Anion Gap mmol/L BUN (9-20) mg/dL Creatinine (0.66-1.25) mg/dL Est GFR (CKD-EPI)AfAm (>60 ml/min/1.73 sqM) Est GFR (CKD-EPI)NonAf (>60 ml/min/1.73 sqM) Glucose (74-99) mg/dL Plasma Lactic Acid Chase (0.7-2.0) mmol/L Calcium (8.4-10.2) mg/dL Magnesium (1.6-2.3) mg/dL Total Bilirubin (0.2-1.3) mg/dL AST (17-59) U/L ALT (4-49) U/L Alkaline Phosphatase (38-126) U/L Troponin I 0.113 H* 0.114 H* (0.000-0.034) ng/mL NT-Pro-B Natriuret Pep pg/mL Total Protein (6.3-8.2) g/dL Albumin (3.5-5.0) g/dL Amylase (30-110) U/L Lipase (23-300) U/L Urine Color Colorless Urine Appearance Clear (Clear) Urine pH 5.0 (5.0-8.0) Ur Specific [place] 1.020 (1.001-1.035) Urine Protein Negative (Negative) Urine Glucose (UA) Negative (Negative) Urine Ketones Negative (Negative) Urine Blood Negative (Negative) Urine Nitrite Negative (Negative) Urine Bilirubin Negative (Negative) Urine Urobilinogen <2.0 (<2.0) mg/dL Ur Leukocyte Esterase Negative (Negative) 09/23/23 Range/Units 05:46 WBC (3.8-10.6) k/uL RBC (4.30-5.90) m/uL Hgb (13.0-17.5) gm/dL Hct (39.0-53.0) % MCV (80.0-100.0) fL MCH (25.0-35.0) pg MCHC (31.0-37.0) g/dL RDW (11.5-15.5) % Plt Count (150-450) k/uL MPV Neutrophils % % Lymphocytes % % Monocytes % % Eosinophils % % Basophils % % Neutrophils # (1.3-7.7) k/uL Lymphocytes # (1.0-4.8) k/uL Monocytes # (0-1.0) k/uL Eosinophils # (0-0.7) k/uL Basophils # (0-0.2) k/uL Sodium (137-145) mmol/L Potassium (3.5-5.1) mmol/L Chloride (98-107) mmol/L Carbon Dioxide (22-30) mmol/L Anion Gap mmol/L BUN (9-20) mg/dL Creatinine (0.66-1.25) mg/dL Est GFR (CKD-EPI)AfAm (>60 ml/min/1.73 sqM) Est GFR (CKD-EPI)NonAf (>60 ml/min/1.73 sqM) Glucose (74-99) mg/dL Plasma Lactic Acid Chase (0.7-2.0) mmol/L Calcium (8.4-10.2) mg/dL Magnesium (1.6-2.3) mg/dL Total Bilirubin (0.2-1.3) mg/dL AST (17-59) U/L ALT (4-49) U/L Alkaline Phosphatase (38-126) U/L Troponin I (0.000-0.034) ng/mL NT-Pro-B Natriuret Pep 2240 pg/mL Total Protein (6.3-8.2) g/dL Albumin (3.5-5.0) g/dL Amylase (30-110) U/L Lipase (23-300) U/L Urine Color Urine Appearance (Clear) Urine pH (5.0-8.0) Ur Specific [place] (1.001-1.035) Urine Protein (Negative) Urine Glucose (UA) (Negative) Urine Ketones (Negative) Urine Blood (Negative) Urine Nitrite (Negative) Urine Bilirubin (Negative) Urine Urobilinogen (<2.0) mg/dL Ur Leukocyte Esterase (Negative) - EKG Data EKG Comments: 12-lead Electrocardiogram Interpretation Note EKG was reviewed and interpreted by myself. 12-lead ECG performed at 0248 is interpreted by me as revealing normal sinus rhythm at a rate of 67 beats per minute. Left axis deviation. NV interval is 156 ms, QRS duration is 144 ms, QTc is 458 ms.. Chronic left bundle branch block morphology since prior PCI. Seen on EKG from April 2023. There were no ST or T wave abnormalities to suggest myocardial ischemia or injury. R wave progression across the precordium was delayed. By my interpretation this EKG is non-diagnostic for acute ischemia. 12-lead Electrocardiogram Interpretation Note EKG was reviewed and interpreted by myself. 12-lead ECG performed at 0533 is interpreted by me as revealing normal sinus rhythm at a rate of 65 beats per minute. Left axis deviation. Left bundle branch block morphology. Chronic left bundle branch block morphology since prior PCI. Seen on EKG from April 2023. There were no obvious acute ST or T wave abnormalities to suggest my ocardial ischemia or injury. R wave progression across the precordium was delayed. By my interpretation this EKG is non-diagnostic for acute ischemia. No dynamic changes when compared with EKG from earlier today. (Anthony Larry) Disposition <Erma Infante - Last Filed: 09/23/23 02:44> Time of Disposition: 08:00 <Anthony Larry - Last Filed: 09/23/23 08:20> Clinical Impression: NSTEMI (non-ST elevated myocardial infarction), Atypical chest pain, Chest wall pain Disposition: ADMITTED IP TO THIS HOSP Condition: Stable Referrals: None,Stated [REFERRING] - 1-2 days
[2023-09-23 03:39] LABS: Basophils % (A) 0 %; Eosinophils # (A) 0.1 k/uL (0-0.7); Eosinophils % (A) 1 %; HCT 43.4 % (39.0-53.0); HGB 14.3 gm/dL (13.0-17.5); Lymphocytes % (A) 12 %; MCH 32.4 pg (25.0-35.0); MCHC 32.9 g/dL (31.0-37.0); MCV 98.2 fL (80.0-100.0); Mean Platelet Volume 7.8; Monocytes # (A) 0.7 k/uL (0-1.0); Monocytes % (A) 9 %; Neutrophils % (A) 75 %; Platelet Count 246 k/uL (150-450); RBC 4.42 m/uL (4.30-5.90); RDW 12.3 % (11.5-15.5)
[2023-09-23 03:55] LABS: ALT 21 U/L (4-49); AST 29 U/L (17-59); African American GFR (CKD) >90 (>60 ml/min/1.73 sqM); Albumin 4.1 g/dL (3.5-5.0); Alkaline Phosphatase 74 U/L (38-126); Amylase 55 U/L (30-110); Anion Gap 8 mmol/L; Blood Urea Nitrogen 17 mg/dL (9-20); Carbon Dioxide 26 mmol/L (22-30); Chloride 105 mmol/L (98-107); Glucose 107 mg/dL (74-99); Lipase 139 U/L (23-300); Non-African American GFR(CKD) >90 (>60 ml/min/1.73 sqM); Potassium 4.7 mmol/L (3.5-5.1); Sodium 139 mmol/L (137-145); Total Bilirubin 0.5 mg/dL (0.2-1.3); Total Protein 7.6 g/dL (6.3-8.2)
[2023-09-23 04:14] LABS: Appearance,Urine Clear (Clear); Bilirubin,Urine Negative (Negative); Blood,Urine Negative (Negative); Color,Urine Colorless; Glucose,Urine (UA) Negative (Negative); Ketones,Urine Negative (Negative); Leukocyte Esterase,Urine Negative (Negative); Nitrite,Urine Negative (Negative); Protein,Urine Negative (Negative); Urobilinogen,Urine <2.0 mg/dL (<2.0)
[2023-09-23] MEDS: NITROGLYCERIN SL TABS 0.4 MG TAB SUBLINGUAL PRN (06:09)
--- NOTE | 2023-09-23 06:45 | XR ---
EXAM: XR Chest, 2 Views CLINICAL HISTORY: pain TECHNIQUE: Frontal and lateral views of the chest. COMPARISON: 04/15/23 FINDINGS: Lungs: Unremarkable. No consolidation. Pleural space: Unremarkable. Mediastinum: Unremarkable. Normal mediastinal contour. Bones/joints: No acute findings. IMPRESSION: No acute findings.
[2023-09-23] MEDS: MORPHINE SULFATE 4 MG/ML SYRINGE IVP STA (06:56)
[2023-09-23] MEDS ORDERED: NITROGLYCERIN SL TABS 0.4 MG TAB SUBLINGUAL PRN (07:59)
--- NOTE | 2023-09-23 08:10 | CT ---
EXAMINATION TYPE: CT angio thor/abd pel aorta DATE OF EXAM: 09/23/2023 COMPARISON: Radiograph same day HISTORY: 73-year-old male ABDOMEN PAIN THAT RADIATES TO BACK, evaluate for dissection TECHNIQUE: Contiguous axial scanning of the chest, abdomen, and pelvis performed without and with IV Contrast, patient injected with 100 mL of Isovue 370. Coronal and sagittal reconstructions performed. 3-D reconstructions generated on a dedicated workstation. CT DLP: 947.9 mGycm Automated exposure control for dose reduction was used. FINDINGS: Imaging is coned in for evaluation of the central arterial system Chest: Heart upper limits of normal in size without pericardial effusion. Extensive LAD and circumflex coron roberto artery calcifications are present. Aorta is normal caliber with conventional arch vessel branching anatomy. Initial noncontrast images show no evidence for acute intramural hematoma. No evidence for aortic dissection. No consolidation or pleural effusion in the visualized field of view. ABDOMEN: The celiac axis and SMA are patent. Mild prostatic calcifications proximal left renal artery. Duplex right renal artery with focal severe stenosis involving the proximal portion of the more super ior right renal artery. Additional scattered mild episodic plaque and calcification infrarenal abdominal aorta without aneury sm. ROBERTO appears patent. Mild prostatic calcifications within the common iliac arteries. Visualized kidneys, adrenal glands, spleen, and pancreas show no gross abnormality. Again, assessment is limited due to colon didn't [id number]. There is large amount of stool distending the cecum up to 6.5 cm wide. Apparent annular thickening at the upper rectum, axial image 262. Pelvis: Prostate gland mildly enlarged at 4.9 cm wide. Bladder is collapsed. Bones: Artifact from left hip total arthroplasty. Osteopenia. Hypertrophic facet arthropathy lumbar spine wi th moderate to severe degenerative disc disease L5-S1. IMPRESSION: 1. LIMITED, CONED IN IMAGING FOR ASSESSMENT OF THE AORTA. 2. NO EVIDENCE FOR AORTIC ANEURYSM OR AORTIC DISSECTION. 3. MILD SCATTERED ATHEROSCLEROTIC CHANGES ARE PRESENT THROUGHOUT. THERE IS A DUPLEX RIGHT RENAL ARTER Y. THE SUPERIOR RIGHT RENAL ARTERY SHOWS A SEVERE FOCAL PROXIMAL STENOSIS. 4. ANNULAR SOFT TISSUE THICKENING AT THE RECTUM MAY BE DUE TO INCOMPLETE DISTENTION OR ADHERENT STOOL MATERIAL. CORRELATE WITH DIRECT VISUALIZATION WHEN PATIENT ABLE TO EXCLUDE AN ANNULAR NEOPLASM.
[2023-09-23] MEDS ORDERED: HEPARIN SODIUM 1,000 UN/ML (10ML VL) IV PRN (08:11)
[2023-09-23] MEDS ORDERED: HEPARIN SOD,PORK IN 0.45% NACL 25,000 UNIT in 0.45% NACL 1 250ML.BAG IV SCH (08:15)
[2023-09-23] MEDS: ATORVASTATIN 20 MG TAB PO SCH (08:16)
[2023-09-23] MEDS: HEPARIN SODIUM 1,000 UN/ML (10ML VL) IV ONE (08:17)
[2023-09-23] MEDS ORDERED: MORPHINE SULFATE 4 MG/ML SYRINGE IV PRN (08:20)
[2023-09-23] MEDS ORDERED: NALOXONE 0.4 MG/ML 1 ML VIAL IV PRN (08:20)
[2023-09-23] MEDS: APIXABAN 5 MG TAB PO SCH (08:23)
[2023-09-23] MEDS: CLOPIDOGREL 75 MG TAB PO SCH (08:23)
[2023-09-23] MEDS: ASPIRIN 81 MG PO STA (08:23)
[2023-09-23] MEDS: SPIRONOLACTONE 25 MG TAB PO SCH (08:23)
[2023-09-23] MEDS ORDERED: ATORVASTATIN 20 MG TAB PO SCH (09:00)
[2023-09-23] MEDS ORDERED: APIXABAN 5 MG TAB PO SCH (09:00)
--- NOTE | 2023-09-23 10:56 | P.HPIM ---
History of Present Illness H&P Date: 09/23/23 History of present illness; Patient is 73-year-old gentleman past medical history significant for coronary artery disease, hyperlipidemia who presented to the ER for chest pain. Patient stated that for the last few days he has been having tightness around his lower part of chest. Patient describes this as tightness, states it comes from the back all the way to the front of the chest more pronounced on the right side compared to the left, no shortness of breath associated with it. Denies any pa lpitations. There is no aggravating or relieving factor associated this chest pain. Patient history of stents placed last April but stated that chest pain at that time was different from this time. There is no complaint of nausea, vomiting abdominal pain Initial lab work done in the ER showed WBC 8, hemoglobin 14.3, platelet count 246, sodium 139, potassium 4.7, BUN 17, creatinine 0.62, glucose 107, troponin 0.113, UA negative for any infection EKG done in the ER showed heart rate of67 , no ST segment elevation or depression seen, no T-wave inversions seen. Chest x-ray done in the ER showed no acute findings CT thoracic aorta done showed no evidence of aortic aneurysm or aortic dissec tion. Patient admitted to internal medicine service REVIEW OF SYSTEMS: CONSTITUTIONAL: No fever, no malaise, no fatigue. HEENT: No recent visual problems or hearing problems. Denied any sore throat. CARDIOVASCULAR: As mentioned above PULMONARY: As mentioned above GASTROINTESTINAL: No diarrhea, no nausea, no vomiting, no abdominal pain. NEUROLOGICAL: No headaches, no weakness, no numbness. HEMATOLOGICAL: Denies any bleeding or petechiae. GENITOURINARY: Denies any burning micturition, frequency, or urgency. MUSCULOSKELETAL/RHEUMATOLOGICAL: Denies any joint pain, swelling, or any muscle pain. ENDOCRINE: Denies any polyuria or polydipsia. The rest of the 14-point review of systems is negative. PHYSICAL EXAMINATION: GENERAL: The patient is alert and oriented x3, not in any acute distress. Well developed, well nourished. HEENT: Pupils are round and equally reacting to light. EOMI. No scleral icterus. No conjunctival pallor. Normocephalic, atraumatic. No pharyngeal erythema. No thyromegaly. CARDIOVASCULAR: S1 and S2 present. No murmurs, rubs, or gallops. PULMONARY: Chest is clear to auscultation, no wheezing or crackles. ABDOMEN: Soft, nontender, nondistended, normoactive bowel sounds. No palpable organomegaly. MUSCULOSKELETAL: No joint swelling or deformity. EXTREMITIES: No cyanosis, clubbing, or pedal edema. NEUROLOGICAL: Gross neurological examination did not reveal any focal deficits. SKIN: No rashes. Assessment and plan Chest pain Elevated troponins History of coronary artery disease Hypertension Hyperlipidemia Monitor vital signs Monitor CBC Monitor CMP Continue telemetry monitoring Trend troponins. Order 2D echo Order D-dimer Resume Eliquis Resume Plavix, losartan, Coreg, Aldactone Consult cardiology Labs and medication were reviewed.. Continue same treatment. Continue with symptomatic treatment. Resume home medication. Monitor labs and vitals. DVT and GI prophylaxis. Further recommendations as per clinical course of the patient Dictation was produced using [employer] dictation software. please excuse any grammatical, word or spelling errors. Past Medical History Past Medical History: Myocardial Infarction ([place]) Additional Past Medical History / Comment(s): Factor 5- takes low dose aspirin History of Any Multi-Drug Resistant Organisms: None Reported Past Surgical History: Heart Catheterization, Heart Catheterization With Stent Additional Past Surgical History / Comment(s): left hip replacement 2020, hernia repair 2013, colonoscopy, right ankle tendon repair, Past Anesthesia/Blood Transfusion Reactions: No Reported Reaction Past Psychological History: No Psychological Hx Reported Smoking Status: Former smoker Past Alcohol Use History: None Reported, Occasional Past Drug Use History: None Reported Medications and Allergies Home Medications Medication Instructions Recorded Confirmed Type Fluticasone Nasal [place] [Flonase 1 spr EA NOSTRIL HS 04/15/23 09/23/23 History Nasal [place]] Apixaban [Eliquis] 5 mg PO BID 30 Days #60 tab 04/20/23 09/23/23 Rx Clopidogrel [Plavix] 75 mg PO DAILY 90 Days #90 tab 04/20/23 09/23/23 Rx Losartan [Cozaar] 12.5 mg PO HS 30 Days #15 tab 04/20/23 09/23/23 Rx Nitroglycerin Sl Tabs [Nitrostat] 0.4 mg SUBLINGUAL Q5M PRN 30 Days 04/20/23 09/23/23 Rx #30 tab carvediloL [Coreg] 3.125 mg PO BID-W/MEALS 30 Days 04/20/23 09/23/23 Rx #60 tab Atorvastatin [Lipitor] 20 mg PO DIRECTED 09/23/23 09/23/23 History Cholecalciferol (Vitamin D3) 50 mcg PO DAILY 09/23/23 09/23/23 History [Vitamin D3 (50 Mcg = 2000 Iu)] Cyanocobalamin (Vitamin B-12) 1,000 mcg PO DAILY 09/23/23 09/23/23 History [Vitamin B-12] Spironolactone [Aldactone] 25 mg PO DAILY 09/23/23 09/23/23 History Ubidecarenone [Coenzyme Q10] 200 mg PO HS 09/23/23 09/23/23 History Allergies Allergy/AdvReac Type Severity Reaction Status Date / Time No Known Allergies Allergy Verified 09/23/23 07:40 Physical Exam Vitals: Vital Signs Temp Pulse Resp BP Pulse Ox 09/23/23 08:20 63 18 116/73 97 09/23/23 02:38 99 F 75 18 131/84 98 Intake and Output 09/22/23 09/23/23 09/23/23 22:59 06:59 14:59 Other: Weight 69.218 kg Results CBC & Chem 7: 09/23/23 02:50 09/23/23 02:50 Labs: Abnormal Lab Results - Last 24 Hours (Table) 09/23/23 09/23/23 09/23/23 Range/Units 02:50 02:50 05:46 Creatinine 0.62 L (0.66-1.25) mg/dL Glucose 107 H (74-99) mg/dL Troponin I 0.113 H* 0.114 H* (0.000-0.034) ng/mL
--- NOTE | 2023-09-23 12:34 | P.CRDCN ---
History of Present Illness Consult date: 09/23/23 History of present illness: History of present illness: This is a 73-year-old male patient of Dr. Romano with past medical history of factor V Leyden, coronary artery disease, ischemic cardiomyopathy with previous EF of 25 to 30%, paroxysmal atrial fibrillation on Eliquis. We have been asked to evaluate the patient for non-ST elevated myocardial infarction. Patient states that he has had ongoing pain to the low rib cage area from the back to the front worse with deep breathing. He complains of back spasms. He states he has had on and off back discomfort since mid August. He states it started in the hip area in the lumbar area and then to the shoulder blades. He has been taking a lot of ibuprofen and thought he was taking too much decided to not take it the night before and his pain was excruciating he was unable to sleep. Patient had a hospitalization in April 2023 at which time he was diagnosed with non-ST elevated myocardial infarction and found to have cardiomyopathy. He underwent cardiac catheterization which revealed ostial LAD 1% stenosis, diffuse mid LAD 90% stenosis, apical LAD 100% stenosis, 70% circumflex stenosis, 30 to 40% RCA stenosis. He underwent PCI of the proximal to mid LAD with overlapping stents and balloon, balloon angioplasty of the apical LAD, aspiration thrombectomy of the LAD, PCI mid circumflex and stent. Patient was also diagnosed with cardiogenic shock status post Impella. Echocardiogram at that time revealed EF of 20 to 25%, mild-mod regurgitation. Patient has had a subsequent echocardiogram on 06/06/2023 in the office that revealed some improvement of EF to 30 to 35%. He is scheduled for repeat echocardiogram in the office next month. EKG Sinus rhythm with left bundle branch block, PACs Chest x-ray: No acute process CT angiogram of the thorax abdominal and pelvic aorta: Limited imaging. No evidence of aortic aneurysm or aortic dissection. Superior right renal artery shows severe focal proximal stenosis. CBC normal. Electrolytes normal. Creatinine 0.62. Troponin 0.113, 0.114, 0 .119. proBNP 2240. Liver function test are normal. Magnesium 2.0. Home cardiac medications: Eliquis 5 mg twice daily, atorvastatin 20 mg on hold due to muscle aches, Coreg 3.125 mg twice daily. Review Of Systems: At the time of my exam: CONSTITUTIONAL: Denies fever or chills. HEENT: Denies blurred vision, vision changes, or eye pain. Denies hemoptysis CARDIOVASCULAR: Denies chest pain. Denies orthopnea. Denies PND. Denies palpitations. Reports back pain. RESPIRATORY: Denies shortness of breath. GASTROINTESTINAL: Denies abdominal pain. Denies nausea or vomiting. HEMATOLOGIC: Denies bleeding disorders. GENITOURINARY: Denies any blood in urine. SKIN: Denies pruitis. Denies rash. Physical examination: Gen: This is a 73-year-old in no acute distress VS: reviewed HEENT: Head is atraumatic, normocephalic. Pupils equal, round. Sclerae is anicteric. NECK: Supple. No JVD. LUNGS: Clear to auscultation. No wheezes or rhonchi. No intercostal retractions. HEART: Regular rate and rhythm. Systolic murmur. ABDOMEN: Soft No tenderness. EXTREMITIES: No pedal edema. No calf tenderness. NEUROLOGICAL: Patient is awake, alert and oriented x3. Assessment: Back pain, musculoskeletal type pain Elevated troponins of unclear significance. Patient has not had a type I or type II [place] Paroxysmal atrial fibrillation History of coronary artery disease with prior stenting Ischemic cardiomyopathy Factor V Leyden Plan: Resume patient's home cardiac medications Obtain 2-D echocardiogram and Doppler study to assess cardiac structure and function Further recommendations to follow based upon clinical course Thank you kindly for this consultation. Nurse practitioner note has been reviewed, I agree with documented findings and plan of care. Patient was seen and examined. Past Medical History Past Medical History: Myocardial Infarction ([place]) Additional Past Medical History / Comment(s): Factor 5- takes low dose aspirin History of Any Multi-Drug Resistant Organisms: None Reported Past Surgical History: Heart Catheterization, Heart Catheterization With Stent Additional Past Surgical History / Comment(s): left hip replacement 2020, hernia repair 2013, colonoscopy, right ankle tendon repair, Past Anesthesia/Blood Transfusion Reactions: No Reported Reaction Past Psychological History: No Psychological Hx Reported Smoking Status: Former smoker Past Alcohol Use History: None Reported, Occasional Past Drug Use History: None Reported Medications and Allergies Home Medications Medication Instructions Recorded Confirmed Type Fluticasone Nasal [place] [Flonase 1 spr EA NOSTRIL HS 04/15/23 09/23/23 History Nasal [place]] Apixaban [Eliquis] 5 mg PO BID 30 Days #60 tab 04/20/23 09/23/23 Rx Clopidogrel [Plavix] 75 mg PO DAILY 90 Days #90 tab 04/20/23 09/23/23 Rx Losartan [Cozaar] 12.5 mg PO HS 30 Days #15 tab 04/20/23 09/23/23 Rx Nitroglycerin Sl Tabs [Nitrostat] 0.4 mg SUBLINGUAL Q5M PRN 30 Days 04/20/23 09/23/23 Rx #30 tab carvediloL [Coreg] 3.125 mg PO BID-W/MEALS 30 Days 04/20/23 09/23/23 Rx #60 tab Atorvastatin [Lipitor] 20 mg PO DIRECTED 09/23/23 09/23/23 History Cholecalciferol (Vitamin D3) 50 mcg PO DAILY 09/23/23 09/23/23 History [Vitamin D3 (50 Mcg = 2000 Iu)] Cyanocobalamin (Vitamin B-12) 1,000 mcg PO DAILY 09/23/23 09/23/23 History [Vitamin B-12] Spironolactone [Aldactone] 25 mg PO DAILY 09/23/23 09/23/23 History Ubidecarenone [Coenzyme Q10] 200 mg PO HS 09/23/23 09/23/23 History Allergies Allergy/AdvReac Type Severity Reaction Status Date / Time No Known Allergies Allergy Verified 09/23/23 07:40 Physical Exam Vitals: Vital Signs Temp Pulse Resp BP Pulse Ox 09/23/23 02:38 99 F 75 18 131/84 98 Intake and Output 09/22/23 09/23/23 09/23/23 22:59 06:59 14:59 Other: Weight 69.218 kg Results 09/23/23 02:50 09/23/23 02:50 Cardiac Enzymes 09/23/23 09/23/23 09/23/23 Range/Units 02:50 02:50 05:46 AST 29 (17-59) U/L Troponin I 0.113 H* 0.114 H* (0.000-0.034) ng/mL CBC 09/23/23 Range/Units 02:50 WBC 8.0 (3.8-10.6) k/uL RBC 4.42 (4.30-5.90) m/uL Hgb 14.3 (13.0-17.5) gm/dL Hct 43.4 (39.0-53.0) % Plt Count 246 (150-450) k/uL Comprehensive Metabolic Panel 09/23/23 Range/Units 02:50 Sodium 139 (137-145) mmol/L Potassium 4.7 (3.5-5.1) mmol/L Chloride 105 (98-107) mmol/L Carbon Dioxide 26 (22-30) mmol/L BUN 17 (9-20) mg/dL Creatinine 0.62 L (0.66-1.25) mg/dL Glucose 107 H (74-99) mg/dL Calcium 9.0 (8.4-10.2) mg/dL AST 29 (17-59) U/L ALT 21 (4-49) U/L Alkaline Phosphatase 74 (38-126) U/L Total Protein 7.6 (6.3-8.2) g/dL Albumin 4.1 (3.5-5.0) g/dL Current Medications Generic Name Dose Route Start Last Admin Trade Name Freq PRN Reason Stop Dose Admin Nitroglycerin 0.4 mg 09/23/23 05:43 09/23/23 06:25 Nitroglycerin Sl Tabs 0.4 Mg Tab SUBLINGUAL 0.4 mg Q5M PRN Administration Chest Pain Intake and Output 09/22/23 09/23/23 09/23/23 22:59 06:59 14:59 Other: Weight 69.218 kg 09/23/23 02:50 09/23/23 02:50
[2023-09-23] MEDS: carvediloL 3.125 MG TAB PO SCH (16:07)
--- NOTE | 2023-09-23 16:58 | CA ---
Transthoracic Echo Report Name: Shahriar Maddox Age: 73 Gender: M : 1950 Exam Date: 09/23/2023 15:21 Exam Location: [facility] [facility] Ht (in): 70 Wt (lb): 152 Ordering Physician: Lance Sloan MD Attending/Referring Phys: [employer] Consultant Craig Mann Procedure CPT: Indications: Chest Pain Cardiac Hx: Technical Quality: Fair Contrast 1: Total Dose (mL): Contrast 2: Total Dose (mL): MEASUREMENTS (Male / Female) Normal Values 2D ECHO LV Diastolic Diameter PLAX 5.2 cm 4.2 - 5.9 / 3.9 - 5.3 cm LV Systolic Diameter PLAX 4.0 cm IVS Diastolic Thickness 1.1 cm 0.6 - 1.0 / 0.6 - 0.9 cm LVPW Diastolic Thickness 1.2 cm 0.6 - 1.0 / 0.6 - 0.9 cm LV Relative Wall Thickness 0.4 RV Internal Dim ED PLAX 3.5 cm LVOT Diameter 2.3 cm Aortic Root Diameter 2.6 cm LA Systolic Diameter LX 2.3 cm 3.0 - 4.0 / 2.7 - 3.8 cm LV Diastolic Volume MOD BP 98.1 cm??? 67 - 155 / 56 - 104 cm??? LV Systolic Volume MOD BP 53.8 cm??? - 58 / 19 - 49 cm??? LV Ejection Fraction MOD BP 45.2 % >= 55 % LV Cardiac Index MOD BP 1661.1 cm???/min???m??? LV Diastolic Volume MOD 4C 83.7 cm??? LV Systolic Volume MOD 4C 49.1 cm??? LV Ejection Fraction MOD 4C 41.4 % LV Cardiac Index MOD 4C 1294.9 cm???/min???m??? LV Diastolic Length 4C 7.4 cm LV Systolic Length 4C 6.4 cm LV Diastolic Volume MOD 2C 108.2 cm??? LV Systolic Volume MOD 2C 56.7 cm??? LV Ejection Fraction MOD 2C 47.6 % LV Cardiac Index MOD 2C 1928.6 cm???/min???m??? LV Diastolic Length 2C 7.9 cm LV Systolic Length 2C 6.7 cm LA Volume 50.8 cm??? 18 - 58 / 22 - 52 cm??? LA Volume Index 27.6 cm???/m??? 16 - 28 cm???/m??? Ascending Aorta Diameter 2.9 cm DOPPLER AV Peak Velocity 130.5 cm/s AV Peak Gradient 6.8 mmHg LVOT Peak Velocity 84.0 cm/s LVOT Peak Gradient 2.8 mmHg LVOT Velocity Time Integral 19.4 cm LVOT Stroke Volume 78.0 cm??? LVOT Stroke Volume Index 42.0 ml/m??? LVOT Cardiac Index 2919.4 cm???/min???m??? AV Area Cont Eq pk 2.6 cm??? MR Peak Velocity 401.1 cm/s MR Peak Gradient 64.4 mmHg Mitral E Point Velocity 68.9 cm/s Mitral A Point Velocity 100.6 cm/s Mitral E to A Ratio 0.7 MV Deceleration Time 236.1 ms MV E' Velocity 7.0 cm/s Mitral E to MV E' Ratio 9.8 TR Peak Velocity 271.5 cm/s TR Peak Gradient 29.5 mmHg Right Ventricular Systolic Press 34.5 mmHg PV Peak Velocity 101.7 cm/s PV Peak Gradient 4.1 mmHg FINDINGS Left Ventricle Normal LV size. Mild concentric LVH. Left ventricular ejection fraction is estimated at 40-45 %. Right Ventricle Normal right ventricular size. Right Atrium Normal right atrial size. Left Atrium Normal left atrial size. Mitral Valve Structurally normal mitral valve. Mild MR. Aortic Valve Trileaflet aortic valve. No aortic valve stenosis or regurgitation. Tricuspid Valve Structurally normal tricuspid valve. Mild TR. Pulmonic Valve Pulmonic valve not well visualized. No pulmonic regurgitation. Pericardium Normal pericardium. Aorta Normal size aortic root. CONCLUSIONS Mildly increased left ventricular wall thickness Left ventricular ejection fraction 40-45% Mild mitral regurgitation Mild tricuspid regurgitation Previewed by: Dr. Wong Romano DO (Electronically Signed) Final Date: 23 September 2023 16:57
[2023-09-23] MEDS: IBUPROFEN 400 MG TAB PO PRN (20:17)
[2023-09-23] MEDS: LOSARTAN 25 MG TAB PO SCH (20:18)
[2023-09-23 23:40] VITALS: RESP 16
--- NOTE | 2023-09-24 08:56 | P.PN ---
Subjective Progress Note Date: 09/24/23 History of present illness: This is a 73-year-old male patient of Dr. Romano with past medical history of factor V Leyden, coronary artery disease, ischemic cardiomyopathy with previous EF of 25 to 30%, paroxysmal atrial fibrillation on Eliquis. We have been asked to evaluate the patient for non-ST elevated myocardial infarction. Patient states that he has had ongoing pain to the low rib cage area from the back to the front worse with deep breathing. He complains of back spasms. He states he has had on and off back discomfort since mid August. He states it started in the hip area in the lumbar area and then to the shoulder blades. He has been taking a lot of ibuprofen and thought he was taking too much decided to not take it the night before and his pain was excruciating he was unable to sleep. Patient had a hospitalization in April 2023 at which time he was diagnosed with non-ST elevated myocardial infarction and found to have cardiomyopathy. He underwent cardiac catheterization which revealed ostial LAD 1% stenosis, diffuse mid LAD 90% stenosis, apical LAD 100% stenosis, 70% circumflex stenosis, 30 to 40% RCA stenosis. He underwent PCI of the proximal to mid LAD with overlapping stents and balloon, balloon angioplasty of the apical LAD, aspiration thrombectomy of the LAD, PCI mid circumflex and stent. Patient was also diagnosed with cardiogenic shock status post Impella. Echocardiogram at that time revealed EF of 20 to 25%, mild-mod regurgitation. Patient has had a subsequent echocardiogram on 06/06/2023 in the office that revealed some improvement of EF to 30 to 35%. He is scheduled for repeat echocardiogram in the office next month. EKG Sinus rhythm with left bundle branch block, PACs Chest x-ray: No acute process CT angiogram of the thorax abdominal and pelvic aorta: Limited imaging. No evidence of aortic aneurysm or aortic dissection. Superior right renal artery shows severe focal proximal stenosis. CBC normal. Electrolytes normal. Creatinine 0.62. Troponin 0.113, 0.114, 0.119. proBNP 2240. Liver function test are normal. Magnesium 2.0. Home cardiac medications: Eliquis 5 mg twice daily, atorvastatin 20 mg on hold due to muscle aches, Coreg 3.125 mg twice daily. 09/24 Patient is seen today on the cardiac stepdown unit. Patient complains of mostly back pain today. Echocardiogram reveals EF 40 to 45%, mild mitral vegetation, mild tricuspid regurgitation. Results reviewed with the patient. Blood pressure 123/71, heart rate 64, pulse ox 98% on room air. D-dimer 0.43. Physical examination: Gen: This is a 73-year-old in no acute distress VS: reviewed HEENT: Head is atraumatic, normocephalic. Pupils equal, round. Sclerae is anicteric. NECK: Supple. No JVD. LUNGS: Clear to auscultation. No wheezes or rhonchi. No intercostal retractions. HEART: Regular rate and rhythm. Systolic murmur. ABDOMEN: Soft No tenderness. EXTREMITIES: No pedal edema. No calf tenderness. NEUROLOGICAL: Patient is awake, alert and oriented x3. Assessment: Back pain, musculoskeletal type pain Elevated troponins of unclear significance. Patient has not had a type I or type II [place] Paroxysmal atrial fibrillation History of coronary artery disease with prior stenting Ischemic cardiomyopathy Factor V [place] Plan: Continue patient's home cardiac medications Patient is cleared for discharge from cardiology and may follow-up with Dr. Gary bocanegra in the office in 1 to 2 weeks. Nurse practitioner note has been reviewed, I agree with documented findings and plan of care. Patient was seen and examined. Objective - Vital Signs Vital signs: Vital Signs Temp 97.6 F 09/24/23 04:01 Pulse 64 09/24/23 06:44 Resp 16 09/24/23 04:01 BP 123/71 09/24/23 06:44 Pulse Ox 98 09/24/23 04:01 FiO2 Intake & Output 09/23/23 09/24/23 09/24/23 18:59 06:59 18:59 Intake Total 640 Balance 640 Weight 69.218 kg Intake: Oral 640 Other: Voiding Method Toilet Toilet # Voids 1 - Labs CBC & Chem 7: 09/23/23 02:50 09/23/23 02:50 Labs: Abnormal Lab Results - Last 24 Hours (Table) 09/23/23 09/23/23 Range/Units 09:19 11:47 Troponin I 0.119 H* 0.119 H* (0.000-0.034) ng/mL
[2023-09-24 09:05] LABS: Basophils % (A) 1 %; Eosinophils # (A) 0.1 k/uL (0-0.7); Eosinophils % (A) 3 %; HCT 43.4 % (39.0-53.0); HGB 14.2 gm/dL (13.0-17.5); Lymphocytes # (A) 0.9 k/uL (1.0-4.8); Lymphocytes % (A) 19 %; MCH 32.3 pg (25.0-35.0); MCHC 32.6 g/dL (31.0-37.0); MCV 98.9 fL (80.0-100.0); Mean Platelet Volume 7.8; Monocytes # (A) 0.5 k/uL (0-1.0); Monocytes % (A) 10 %; Neutrophils # (A) 3.1 k/uL (1.3-7.7); Neutrophils % (A) 66 %; Platelet Count 266 k/uL (150-450); RBC 4.39 m/uL (4.30-5.90); RDW 12.4 % (11.5-15.5); WBC 4.7 k/uL (3.8-10.6)
[2023-09-24 09:49] LABS: African American GFR (CKD) >90 (>60 ml/min/1.73 sqM); Anion Gap 4 mmol/L; Blood Urea Nitrogen 19 mg/dL (9-20); Calcium 9.1 mg/dL (8.4-10.2); Carbon Dioxide 30 mmol/L (22-30); Chloride 106 mmol/L (98-107); Glucose 97 mg/dL (74-99); Non-African American GFR(CKD) >90 (>60 ml/min/1.73 sqM); Sodium 140 mmol/L (137-145)
[2023-09-24 10:32] VITALS: BP 104/58; PULSE 67; TEMP 97.8
--- NOTE | 2023-09-24 11:57 | P.DS ---
Providers Date of admission: 09/23/23 08:20 Expected date of discharge: 09/24/23 Attending physician: Jarad Cordova Consults: 09/23/23 07:46 Consult Physician Routine Consulting Provider: [facility] Consult Reason/Comments: nstemi Do you want consulting provider notified?: Yes Primary care physician: Alex Meza [facility] Course: Discharge diagnoses; Chest pain Elevated troponins History of coronary artery disease Hypertension Hyperlipidemia Hospital course; Patient is 73-year-old gentleman past medical history significant for coronary artery disease, hyperlipidemia who presented to the ER for chest pain. Patient stated that for the last few days he has been having tightness around his lower part of chest. Patient describes this as tightness, states it comes from the back all the way to the front of the chest more pronounced on the right side compared to the left, no shortness of breath associated with it. Denies any palpitations. There is no aggravating or relieving factor associated this chest pain. Patient history of stents placed last April but stated that chest pain at that time was different from this time. There is no complaint of nausea, vomiting abdominal pain Initial lab work done in the ER showed WBC 8, hemoglobin 14.3, platelet count 246, sodium 139, potassium 4.7, BUN 17, creatinine 0.62, glucose 107, troponin 0.113, UA negative for any infection EKG done in the ER showed heart rate of67 , no ST segment elevation or depression seen, no T-wave inversions seen. Chest x-ray done in the ER showed no acute findings CT thoracic aorta done showed no evidence of aortic aneurysm or aortic dissection. Patient admitted to internal medicine service 09/24. Patient seen and examined. Cardiology evaluated the patient, patient troponins remain flat. At this time cardiology do not recommend any further ischemic workup, recommend following up outpatient on current cardiac medications PHYSICAL EXAMINATION: GENERAL: The patient is alert and oriented x3, not in any acute distress. Well developed, well nourished. HEENT: Pupils are round and equally reacting to light. EOMI. No scleral icterus. No conjunctival pallor. Normocephalic, atraumatic. No pharyngeal erythema. No thyromegaly. CARDIOVASCULAR: S1 and S2 present. No murmurs, rubs, or gallops. PULMONARY: Chest is clear to auscultation, no wheezing or crackles. ABDOMEN: Soft, nontender, nondistended, normoactive bowel sounds. No palpable organomegaly. MUSCULOSKELETAL: No joint swelling or deformity. EXTREMITIES: No cyanosis, clubbing, or pedal edema. NEUROLOGICAL: Gross neurological examination did not reveal any focal deficits. SKIN: No rashes. Dictation was produced using [employer] dictation software. please excuse any grammatical, word or spelling errors. Patient Condition at Discharge: Stable Plan - Discharge Summary Discharge Rx Participant: No New Discharge Prescriptions: Continue carvediloL [Coreg] 3.125 mg PO BID-W/MEALS 30 Days #60 tab Losartan [Cozaar] 12.5 mg PO HS 30 Days #15 tab Clopidogrel [Plavix] 75 mg PO DAILY 90 Days #90 tab Cholecalciferol (Vitamin D3) [Vitamin D3 (50 Mcg = 2000 Iu)] 50 mcg PO DAILY Spironolactone [Aldactone] 25 mg PO DAILY Fluticasone Nasal [place] [Flonase Nasal [place]] 1 spr EA NOSTRIL HS Apixaban [Eliquis] 5 mg PO BID 30 Days #60 tab Nitroglycerin Sl Tabs [Nitrostat] 0.4 mg SUBLINGUAL Q5M PRN 30 Days #30 tab PRN Reason: Chest Pain Cyanocobalamin (Vitamin B-12) [Vitamin B-12] 1,000 mcg PO DAILY Atorvastatin [Lipitor] 20 mg PO DIRECTED Ubidecarenone [Coenzyme Q10] 200 mg PO HS Discharge Medication List Fluticasone Nasal [place] [Flonase Nasal [place]] 1 spr EA NOSTRIL HS 04/15/23 [History] Apixaban [Eliquis] 5 mg PO BID 30 Days #60 tab 04/20/23 [Rx] Clopidogrel [Plavix] 75 mg PO DAILY 90 Days #90 tab 04/20/23 [Rx] Losartan [Cozaar] 12.5 mg PO HS 30 Days #15 tab 04/20/23 [Rx] Nitroglycerin Sl Tabs [Nitrostat] 0.4 mg SUBLINGUAL Q5M PRN 30 Days #30 tab 04/20/23 [Rx] carvediloL [Coreg] 3.125 mg PO BID-W/MEALS 30 Days #60 tab 04/20/23 [Rx] Atorvastatin [Lipitor] 20 mg PO DIRECTED 09/23/23 [History] Cholecalciferol (Vitamin D3) [Vitamin D3 (50 Mcg = 2000 Iu)] 50 mcg PO DAILY 09/23/23 [History] Cyanocobalamin (Vitamin B-12) [Vitamin B-12] 1,000 mcg PO DAILY 09/23/23 [History] Spironolactone [Aldactone] 25 mg PO DAILY 09/23/23 [History] Ubidecarenone [Coenzyme Q10] 200 mg PO HS 09/23/23 [History] Follow up Appointment(s)/Referral(s): Wong Romano DO [STAFF PHYSICIAN] - 1 Week None,Stated [REFERRING] - 1-2 days Discharge Disposition: HOME SELF-CARE
[2023-09-24 13:20] VITALS: BMI 21.9
--- NOTE | 2023-09-28 11:22 | CDI ---
Documentation Clarification Form Date: 09/28/23 From: Flo Aleman, IZABELLA, RN Phone: [phone] Admit Date: 09/23/2023 08:20:00 AM Patient Name: Shahriar Maddox Visit Number: [id number] Discharge Date: 09/24/2023 11:49:00 AM ATTENTION: The Clinical Documentation Specialists (CDI) and [facility] Coding Staff appreciate your assistance in clarifying documentation. Please respond to the clarification below the line at the bottom and electronically sign. The CDI & [facility] Coding staff will review the response and follow-up if needed. Please note: Queries are made part of the Legal Health Record. If you have any questions, please contact the author of this message via ITS. Dr. Jackman Chest wall discomfort was documented in the ED note on 09/23. After work up and study, clarification regarding the etiology of this symptom is requested. History/Risk factors: 73 yo male presented with c/o tightness around his lower part of chest. PMH DC, Factor 5, Heart Cath with stens. (ED note, H&P, DS). Clinical Indicators: Cardiology PN 09/24 pt states he has ongoing pain to the low rib cage areas worse with deep breathing. He complains of back spasms. He has been taking a lot of ibuprofen and thought he was taking too much decided to not take if the night before, his pain was excruciating he was unable to sleep Troponins 09/23 per lab reports: 0.113, 0.114, 0.119 DS 09/24 cardiology evaluated the patient, troponins remain flat Treatment: Ibuprofen 400 mg po q6h PRN pain, ordered 09/23, dcd 09/24 at id Consults: Elevated troponins of unclear significance. Back pain, musculoskeletal type pain Please provide additional clarification regarding the etiology/cause of the chest pain. [ ] Chest pain due to costochondritis [ ] Chest pain due to chest wall pain of unknown etiology [ ] Chest pain due to other condition, please specify [ ] Unable to determine MTDD
== END 2023-09-24 11:49 | disposition home or self-care (01) | DRG 313 ==
LOC: EC 01:54 → 3SCARD 08:20
PROVIDERS: ADMIT Hospitalist; ATTEND Hospitalist
DX: R07.89 Other chest pain (principal); D68.51 Activated protein C resistance; I25.10 Atherosclerotic heart disease of native coronary artery without angina pectoris; M54.50 Low back pain, unspecified; I44.7 Left bundle-branch block, unspecified; Z96.642 Presence of left artificial hip joint; I25.5 Ischemic cardiomyopathy; I48.0 Paroxysmal atrial fibrillation; E78.5 Hyperlipidemia, unspecified; M54.9 Dorsalgia, unspecified; R07.81 Pleurodynia; R79.89 Other specified abnormal findings of blood chemistry; I10 Essential (primary) hypertension; Z95.5 Presence of coronary angioplasty implant and graft; Z79.899 Other long term (current) drug therapy; Z79.82 Long term (current) use of aspirin; Z79.02 Long term (current) use of antithrombotics/antiplatelets; Z79.01 Long term (current) use of anticoagulants; I25.2 Old myocardial infarction; Z87.891 Personal history of nicotine dependence; Z28.310 Unvaccinated for COVID-19
CPT/HCPCS: 36415; 71046; 71275; 74174; 80048; 80053; 81003; 82150; 83605; 83690; 83735; 83880; 84484; 85025; 85379; 93005; 93306; 96374; 99291

== ENCOUNTER → 2023-10-18 | Outpatient (CLI) | payer MEDICARE ==
[2023-10-18 11:24] LABS: ALT 16 U/L (10-49); AST 18 U/L (14-35); Chol/HDL Ratio 4.28 Ratio; LDL Cholesterol,Calculated 101.2 mg/dL (0.0-131.0)
== END | disposition home or self-care (01) ==
LOC: LABWHC1 07:47
PROVIDERS: ATTEND Nurse Practitioner Acute Care
DX: E78.2 Mixed hyperlipidemia (principal)
CPT/HCPCS: 36415; 80061; 84450; 84460

== ENCOUNTER 2024-08-11 16:32 | Inpatient (IN) | payer MEDICARE ==
[2024-08-11] MEDS: DEXTROSE 5% IN WATER 100 ML with AMIODARONE 150 MG IV ONE (16:45)
[2024-08-11] MEDS: HEPARIN SODIUM 1,000 UN/ML (10ML VL) IV ONE ×2 (16:47→17:22)
[2024-08-11] MEDS: ATORVASTATIN 80 MG TAB PO SCH (16:47)
--- NOTE | 2024-08-11 16:50 | ED ---
General Adult HPI - General Chief complaint: Arrhythmia/Palpitations Stated complaint: CP Time Seen by Provider: 08/11/24 16:33 Source: patient, RN notes reviewed, old records reviewed Mode of arrival: EMS Limitations: no limitations - History of Present Illness Initial comments: 73-year-old male with known coronary artery disease presents for evaluation of chest pain. Initial EMS call was for central chest pain while patient was being transported he went into V-fib requiring defibrillation and a brief period of CPR. He did regain an organized rhythm as well as measurable blood pressure and became awake. Upon arrival the patient is pale, diaphoretic. Complaining of persistent chest pain. - Related Data Home Medications Medication Instructions Recorded Confirmed Fluticasone Nasal [place] [Flonase 2 spr EA NOSTRIL DAILY 04/15/23 08/11/24 Nasal [place]] Eplerenone 12.5 mg PO DAILY 08/11/24 08/11/24 Ezetimibe [Zetia] 10 mg PO DAILY 08/11/24 08/11/24 Losartan [Cozaar] 12.5 mg PO DAILY 08/11/24 08/11/24 Rosuvastatin Calcium [Crestor] 5 mg PO DAILY 08/11/24 08/11/24 Previous Rx's Medication Instructions Recorded Apixaban [Eliquis] 5 mg PO BID 30 Days #60 tab 04/20/23 Clopidogrel [Plavix] 75 mg PO DAILY 90 Days #90 tab 04/20/23 carvediloL [Coreg] 3.125 mg PO BID-W/MEALS 30 Days 04/20/23 #60 tab Allergies Allergy/AdvReac Type Severity Reaction Status Date / Time No Known Allergies Allergy Verified 08/11/24 16:44 Review of Systems ROS Statement: Those systems with pertinent positive or pertinent negative responses have been documented in the HPI. ROS Other: All systems not noted in ROS Statement are negative. Past Medical History Past Medical History: Myocardial Infarction (CT) Additional Past Medical History / Comment(s): Factor 5- takes low dose aspirin Last Myocardial Infarction Date:: 04/13/2023 History of Any Multi-Drug Resistant Organisms: None Reported Past Surgical History: Heart Catheterization, Heart Catheterization With Stent Additional Past Surgical History / Comment(s): left hip replacement 2020, hernia repair 2013, colonoscopy, right ankle tendon repair, Past Anesthesia/Blood Transfusion Reactions: No Reported Reaction Date of Last Stent Placement:: 04/16/2023 Past Psychological History: No Psychological Hx Reported Smoking Status: Former smoker Past Alcohol Use History: None Reported, Occasional Past Drug Use History: None Reported - Past Family History Mother Family Medical History: Pulmonary Embolus Father Family Medical History: Coronary Artery Disease (CAD) General Exam Limitations: no limitations General appearance: lethargic, in distress Head exam: Present: atraumatic, normocephalic Eye exam: Present: normal appearance, PERRL Neck exam: Present: normal inspection. Absent: tenderness, meningismus Respiratory exam: Present: other (Tachypnea, with good air entry). Absent: respiratory distress, wheezes Cardiovascular Exam: Present: regular rate, normal rhythm GI/Abdominal exam: Present: soft. Absent: distended, tenderness Neurological exam: Present: alert. Absent: motor sensory deficit Psychiatric exam: Present: anxious Skin exam: Present: diaphoretic, pallor Course Vital Signs 08/11/24 08/11/24 16:33 16:39 Temperature 97.6 F Pulse Rate 87 81 Respiratory 30 H 16 Rate Blood Pressure 126/83 120/76 O2 Sat by Pulse 96 100 Oximetry Medical Decision Making - Medical Decision Making Was pt. sent in by a medical professional or institution (, PA, [employer], urgent care, hospital, or long-term...) When possible be specific @ -No Did you speak to anyone other than the patient for history (EMS, parent, family, police, friend...)? What history was obtained from this source @ -No Did you review nursing and triage notes (agree or disagree)? Why? @ -I reviewed and agree with nursing and triage notes Were old charts reviewed (outside hosp., previous admission, EMS record, old EKG, old radiological studies, urgent care reports/EKG's, long-term records)? Report findings @ -No old charts were reviewed Differential Diagnosis (chest pain, altered mental status, abdominal pain women, abdominal pain men, vaginal bleeding, weakness, fever, dyspnea, syncope, headache, dizziness, GI bleed, back pain, seizure, CVA, palpatations, mental health, musculoskeletal)? @ -Not applicable EKG interpreted by me (3pts min.). @ -Sinus rhythm rate of 84, left bundle branch block, ST segment elevation in 3 and aVF suspect reciprocal depression in aVL V2 V5 X-rays interpreted by me (1pt min.). @ -Chest x-ray/negative for acute cardiopulmonary findings CT interpreted by me (1pt min.). @ -None done U/S interpreted by me (1pt. min.). @ -None done What testing was considered but not performed or refused? (CT, X-rays, U/S, labs)? Why? @ -None What meds were considered but not given or refused? Why? @ -None Did you discuss the management of the patient with other professionals (professionals i.e. DrVinicius, PA, [employer], lab, RT, psych nurse, psychiatric social worker, urgent care technician, teacher, control officer, adult protective caseworker)? Give summary @ -[Case discussed with Dr. Abernathy and Dr. Murphy Was smoking cessation discussed for >3mins.? @ -No Was critical care preformed (if so, how long)? @ -Yes, 35 minutes Were there social determinants of health that impacted care today? How? (Homelessness, low income, unemployed, alcoholism, drug addiction, transportation, low edu. Level, literacy, decrease access to med. care, snf, rehab)? @ -No Was there de-escalation of care discussed even if they declined (Discuss DNR or withdrawal of care, Hospice)? DNR status @ -No What co-morbidities impacted this encounter? (DM, HTN, Smoking, COPD, CAD, Cancer, CVA, ARF, Chemo, Hep., AIDS, mental health diagnosis, sleep apnea, morbid obesity)? @CAD Was patient admitted / discharged? Hospital course, mention meds given and route, prescriptions, significant lab abnormalities, going to OR and other pertinent info. @ -73-year-old male presenting in extremis, pale, diaphoretic with [id number] brief V-fib arrest. Patient loaded on amiodarone. EKG is concerning for ST segment elevation in lead III and aVF. Baseline left bundle. Patient given aspirin, heparin, Lipitor in the emergency department. Taken to the Tax Compliance Agent for ST segment elevated CT with V-fib arrest and return of spontaneous circulation. Undiagnosed new problem with uncertain prognosis? @ -No Drug Therapy requiring intensive monitoring for toxicity (Heparin, Nitro, Insulin, Cardizem)? @ -No Were any procedures done? @ -No Diagnosis/symptom? @STEMI, V-fib arrest Acute, or Chronic, or Acute on Chronic? @ -[Acute Uncomplicated (without systemic symptoms) or Complicated (systemic symptoms)? @Complicated Side effects of treatment? @ -No Exacerbation, Progression, or Severe Exacerbation? @ -No Poses a threat to life or bodily function? How? (Chest pain, USA, CT, pneumonia, PE, COPD, DKA, ARF, appy, cholecystitis, CVA, Diverticulitis, Homicidal, Suicidal, threat to staff... and all critical care pts) @Yes, V-fib arrest, STEMI, ACS, cardiogenic shock - Lab Data Result diagrams: 08/11/24 16:41 Lab Results 08/11/24 Range/Units 16:41 WBC 6.9 (3.8-10.6) k/uL RBC 4.68 (4.30-5.90) m/uL Hgb 15.1 (13.0-17.5) gm/dL Hct 45.7 (39.0-53.0) % MCV 97.8 (80.0-100.0) fL MCH 32.4 (25.0-35.0) pg MCHC 33.1 (31.0-37.0) g/dL RDW 12.9 (11.5-15.5) % Plt Count 227 (150-450) k/uL MPV 8.1 Neutrophils % 66 % Lymphocytes % 22 % Monocytes % 7 % Eosinophils % 1 % Basophils % 0 % Neutrophils # 4.6 (1.3-7.7) k/uL Lymphocytes # 1.5 (1.0-4.8) k/uL Monocytes # 0.5 (0-1.0) k/uL Eosinophils # 0.1 (0-0.7) k/uL Basophils # 0.0 (0-0.2) k/uL Critical Care Time Critical Care Time: Yes Total Critical Care Time: 35 Disposition Clinical Impression: Ventricular fibrillation, Cardiac arrest, STEMI (ST elevation myocardial infarction) Disposition: ADMITTED IP TO THIS [facility] Condition: Serious Is patient prescribed a controlled substance at d/c from ED?: No Referrals: Alex Meza [Primary Care Provider] - 1-2 days Time of Disposition: 16:50
[2024-08-11 17:01] LABS: Basophils % (A) 0 %; Eosinophils # (A) 0.1 k/uL (0-0.7); Eosinophils % (A) 1 %; HCT 45.7 % (39.0-53.0); HGB 15.1 gm/dL (13.0-17.5); Lymphocytes # (A) 1.5 k/uL (1.0-4.8); Lymphocytes % (A) 22 %; MCH 32.4 pg (25.0-35.0); MCHC 33.1 g/dL (31.0-37.0); MCV 97.8 fL (80.0-100.0); Mean Platelet Volume 8.1; Monocytes # (A) 0.5 k/uL (0-1.0); Monocytes % (A) 7 %; Neutrophils # (A) 4.6 k/uL (1.3-7.7); Neutrophils % (A) 66 %; Platelet Count 227 k/uL (150-450); RBC 4.68 m/uL (4.30-5.90); RDW 12.9 % (11.5-15.5); WBC 6.9 k/uL (3.8-10.6)
--- NOTE | 2024-08-11 17:01 | XR ---
EXAMINATION TYPE: XR chest 1V portable DATE OF EXAM: 08/11/2024 4:47 PM COMPARISON: Chest radiograph 09/23/2043. CLINICAL INDICATION: Male, 73 years old with history of chest pain; [facility] TECHNIQUE: XR chest 1V portable Frontal view of the chest. FINDINGS: Cardiac silhouette within normal limits of size. No acute focal consolidation. No pleural effusion. 5 mm nodular density overlying the left midlung. No pneumothorax. No sizable pleural effusion. No acute osseous abnormality. IMPRESSION: No acute cardiopulmonary disease/process. [facility], , 08/11/2024 4:59 PM
[2024-08-11] MEDS: ASPIRIN 325 MG TAB PO STA (17:05)
[2024-08-11] MEDS: ONDANSETRON 4 MG/2 ML VIAL IVP STA (17:05)
[2024-08-11] MEDS: IV FLUID CONTINUATION 1,000 ML IV ONE (17:08)
[2024-08-11] MEDS: LIDOCAINE 1% INJ 10MG/ML (20 ML MDV) SQ ONE (17:14)
[2024-08-11] MEDS: AMIODARONE 360 MG in DEXTROSE 5% IN WATER 200 ML IV ONE (17:15)
[2024-08-11] MEDS: fentaNYL (PF) 50 MCG/ML 2 ML AMP IVP ONE (17:16)
[2024-08-11 17:21] LABS: AST 33 U/L (17-59); African American GFR (CKD) >90 (>60 ml/min/1.73 sqM); Albumin 4.5 g/dL (3.5-5.0); Alkaline Phosphatase 73 U/L (38-126); Anion Gap 22 mmol/L; Blood Urea Nitrogen 15 mg/dL (9-20); Carbon Dioxide 13 mmol/L (22-30); Chloride 103 mmol/L (98-107); Glucose 186 mg/dL (74-99); Magnesium 2.1 mg/dL (1.6-2.3); Non-African American GFR(CKD) >90 (>60 ml/min/1.73 sqM); Potassium 3.3 mmol/L (3.5-5.1); Sodium 138 mmol/L (137-145); Total Bilirubin 0.5 mg/dL (0.2-1.3); Total Protein 7.2 g/dL (6.3-8.2)
[2024-08-11 17:22] LABS: INR 1.1 (<1.2); Prothrombin Time 11.6 sec (10.0-12.5)
[2024-08-11 17:23] LABS: Partial Thromboplastin Time 19.5 sec (22.0-30.0)
[2024-08-11 17:27] LABS: NT-Pro-B-Type Natriuretic Pept 1160 pg/mL
[2024-08-11] MEDS: TICAGRELOR 90 MG TAB PO ONE (17:30)
[2024-08-11 17:32] LABS: ALT 29 U/L (4-49)
[2024-08-11] MEDS: IOPAMIDOL-370 100ML BTL INJ ONE ×3 (17:43→18:49)
[2024-08-11] MEDS: TIROFIBAN 12.5MG-250ML NS 250 ML IV ONE (18:20)
[2024-08-11] MEDS ORDERED: TIROFIBAN BOLUS 12.5MG/250 ML BAG IV SCH (18:30)
[2024-08-11] MEDS ORDERED: RX INFO: IV CONTRAST WAS GIVEN 1 EACH MISC MISCELLANE PRN (18:48)
[2024-08-11] MEDS ORDERED: MAG HYDROX/AL HYDROX/SIMETH 30 ML CUP PO PRN (18:48)
[2024-08-11] MEDS ORDERED: ZOLPIDEM 5 MG TAB PO PRN (18:48)
[2024-08-11] MEDS ORDERED: NITROGLYCERIN SL TABS 0.4 MG TAB SUBLINGUAL PRN (18:48)
[2024-08-11] MEDS ORDERED: ATROPINE SULFATE 0.1 MG/ML 10ML SYRINGE IV PRN (18:48)
[2024-08-11] MEDS: TIROFIBAN 12.5MG-250ML NS 250 ML IV SCH (19:00)
--- NOTE | 2024-08-11 19:02 | P.CRDCN ---
History of Present Illness Consult date: 08/11/24 History of present illness: History of Present Illness: The patient is a 73-year-old male with a known history of CAD, followed by Dr. Romano and underwent stenting of the LAD and left circumflex in April 2023 and had history of ischemic cardiomyopathy. His initial procedure was done with Impella support because of hemodynamic instability and ventricular fibrillation. He has done well since that time until today when he had a sudden chest discomfort with dyspnea, on arrival to the EMS he had ventricular fibrillation requiring cardioversion. On arrival to the emergency room he was having chest pain but was in sinus mechanism. He has underlying left bundle branch block. Patient was evaluated in the cardiac catheterization laboratory. He was having chest discomfort and dyspnea. Mildly uncomfortable but blood pressure and heart rate were stable. According to him he has done well until this event. He has no PND, orthopnea or peripheral edema. He denies any prior dizziness or palpitations. His activity level has been stable and he has been walking on a regular basis. He is a non-smoker. Medications: Carvedilol 3.125 mg twice a day, rosuvastatin 5 mg daily, losartan 12-1/2 mg daily, ezetimibe 10 mg daily, eplerenone 12-1/2 mg daily and he was on Eliquis 5 mg twice a day. His clopidogrel was stopped about a month ago Review of Systems: Respiratory: No history of asthma, bronchitis or recent cough. GI: No nausea or vomiting . No history of peptic ulcer disease. No recent GI bleed. : No hematuria or dysuria. Nervous System: No stroke or seizure. Physical Examination: 73-year-old male, alert oriented ,Blood pressure 105/70, Heart rate 85 Head: Normocephalic. Eyes: Sclerae nonicteric. Neck: Good carotid upstroke, no bruit, no jugular venous distention. Lungs: Clear to auscultation. Heart: Regular rate and rhythm, S1-S2, no S3, no rub. Systolic ejection murmur. Abdomen: Soft nontender, positive bowel sounds no organomegaly. Extremities: No edema, intact distal pulses. Labs: Hemoglobin 15.1, potassium 3.3, BUN 15, creatinine 0.77. Troponin 0.070. NT proBNP 1160. Chest x-ray with no acute infiltrate. EKG: Sinus mechanism with left bundle branch block Impression: 1. Acute coronary syndrome, probable STEMI in view of the underlying left bundle branch block in a patient with known history of CAD and multiple stenting 2. Prior history of ischemic cardiomyopathy 3. Episode of ventricular fibrillation on presentation 4. Hyperlipidemia Plan: 1. I have recommended to proceed with emergent coronary angiography, the procedure as well as the risk and complications were discussed with the patient who was in full understanding and agreement 2. Depending on the results of his intervention further recommendation will be made 3. Obtain an echocardiogram with Doppler 4. Continue statin 5. Thank you for this consult we will follow with you Past Medical History Past Medical History: Myocardial Infarction ([place]) Additional Past Medical History / Comment(s): Factor 5- takes low dose aspirin Last Myocardial Infarction Date:: 04/13/2023 History of Any Multi-Drug Resistant Organisms: None Reported Past Surgical History: Heart Catheterization, Heart Catheterization With Stent Additional Past Surgical History / Comment(s): left hip replacement 2020, hernia repair 2013, colonoscopy, right ankle tendon repair, Past Anesthesia/Blood Transfusion Reactions: No Reported Reaction Date of Last Stent Placement:: 04/16/2023 Past Psychological History: No Psychological Hx Reported Smoking Status: Former smoker Past Alcohol Use History: None Reported, Occasional Past Drug Use History: None Reported - Past Family History Mother Family Medical History: Pulmonary Embolus Father Family Medical History: Coronary Artery Disease (CAD) Medications and Allergies Home Medications Medication Instructions Recorded Confirmed Type Fluticasone Nasal [place] [Flonase 2 spr EA NOSTRIL DAILY 04/15/23 08/11/24 History Nasal [place]] Apixaban [Eliquis] 5 mg PO BID 30 Days #60 tab 04/20/23 08/11/24 Rx Clopidogrel [Plavix] 75 mg PO DAILY 90 Days #90 tab 04/20/23 08/11/24 Rx carvediloL [Coreg] 3.125 mg PO BID-W/MEALS 30 Days 04/20/23 08/11/24 Rx #60 tab Eplerenone 12.5 mg PO DAILY 08/11/24 08/11/24 History Ezetimibe [Zetia] 10 mg PO DAILY 08/11/24 08/11/24 History Losartan [Cozaar] 12.5 mg PO DAILY 08/11/24 08/11/24 History Rosuvastatin Calcium [Crestor] 5 mg PO DAILY 08/11/24 08/11/24 History Allergies Allergy/AdvReac Type Severity Reaction Status Date / Time No Known Allergies Allergy Verified 08/11/24 16:44 Physical Exam Vitals: Vital Signs Temp Pulse Resp BP Pulse Ox 08/11/24 16:47 82 32 H 132/74 97 08/11/24 16:39 81 16 120/76 100 08/11/24 16:33 97.6 F 87 30 H 126/83 96 Intake and Output 08/11/24 08/11/24 08/11/24 06:59 14:59 22:59 Intake Total 550.5 Balance 550.5 Intake: IV 550.5 Other: Weight 73.21 kg Results 08/11/24 16:41 08/11/24 16:41 Cardiac Enzymes 08/11/24 08/11/24 Range/Units 16:41 16:41 AST 33 (17-59) U/L Troponin I 0.070 H* (0.000-0.034) ng/mL Coagulation 08/11/24 Range/Units 16:41 PT 11.6 (10.0-12.5) sec APTT 19.5 L (22.0-30.0) sec CBC 08/11/24 Range/Units 16:41 WBC 6.9 (3.8-10.6) k/uL RBC 4.68 (4.30-5.90) m/uL Hgb 15.1 (13.0-17.5) gm/dL Hct 45.7 (39.0-53.0) % Plt Count 227 (150-450) k/uL Comprehensive Metabolic Panel 08/11/24 Range/Units 16:41 Sodium 138 (137-145) mmol/L Potassium 3.3 L (3.5-5.1) mmol/L Chloride 103 (98-107) mmol/L Carbon Dioxide 13 L (22-30) mmol/L BUN 15 (9-20) mg/dL Creatinine 0.77 (0.66-1.25) mg/dL Glucose 186 H (74-99) mg/dL Calcium 9.0 (8.4-10.2) mg/dL AST 33 (17-59) U/L ALT 29 (4-49) U/L Alkaline Phosphatase 73 (38-126) U/L Total Protein 7.2 (6.3-8.2) g/dL Albumin 4.5 (3.5-5.0) g/dL Current Medications Generic Name Dose Route Start Last Admin Trade Name Freq PRN Reason Stop Dose Admin Al Hydroxide/Mg Hydroxide 30 ml 08/11/24 18:48 Mag Hydrox/Al Hydrox/Simeth 30 Ml Cup PO Q4HR PRN Heartburn Aspirin 325 mg 08/12/24 09:00 Aspirin 325 Mg Tab PO DAILY [facility] Aspirin 81 mg 08/12/24 09:00 Aspirin 81 Mg PO DAILY [facility] Atorvastatin Calcium 80 mg 08/11/24 16:45 08/11/24 16:47 Atorvastatin 80 Mg Tab PO Not Given DAILY [facility] Atorvastatin Calcium 40 mg 08/12/24 09:00 Atorvastatin 40 Mg Tab PO DAILY [facility] Atropine Sulfate 0.5 mg 08/11/24 18:48 Atropine Sulfate 0.1 Mg/Ml 10ml Syringe IV ONCE PRN Symptomatic Bradycardia Carvedilol 3.125 mg 08/12/24 07:30 Carvedilol 3.125 Mg Tab PO BID-W/MEALS [facility] Ezetimibe 10 mg 08/12/24 09:00 Ezetimibe 10 Mg Tab PO DAILY [facility] Amiodarone HCl 360 mg/ 200 mls @ 33.333 mls/hr 08/11/24 16:34 08/11/24 17:15 Dextrose/Water IV 08/11/24 22:33 56 mls .Q6H ONE Administration Protocol 1 MG/MIN Amiodarone HCl 450 mg/ 250 mls @ 16.667 mls/hr 08/11/24 22:45 Dextrose/Water IV 08/12/24 16:44 .Q15H LENNY Protocol 0.5 MG/MIN Tirofiban/Sodium Chloride 250 mls @ 13.178 mls/hr 08/11/24 18:30 Aggrastat 12.5 Mg/250 Ml Ns IV .[id number] LENNY 0.15 MCG/KG/MIN Sodium Chloride 1,000 ml/ IV 1,000 mls @ 73.21 mls/hr 08/11/24 19:00 Solution IV 08/11/24 21:59 .[id number] LENNY 1 ML/KG/HR Losartan Potassium 12.5 mg 08/12/24 09:00 Losartan 25 Mg Tab PO DAILY [facility] Miscellaneous Information 1 each 08/11/24 18:48 Rx Info: Iv Contrast Was Given 1 Each Misc MISCELLANE 08/13/24 18:48 DAILY PRN Per Protocol Nitroglycerin 0.4 mg 08/11/24 18:48 Nitroglycerin Sl Tabs 0.4 Mg Tab SUBLINGUAL Q5M PRN Chest Pain Non-Formulary Medication 12.5 mg 08/12/24 09:00 Eplerenone [Eplerenone] PO DAILY [facility] Ticagrelor 90 mg 08/11/24 21:00 Ticagrelor 90 Mg Tab PO BID [facility] Protocol Tirofiban/Sodium Chloride 37.5 ml 08/11/24 18:30 Tirofiban Bolus 12.5mg/250 Ml Bag IV BOLUS [facility] Zolpidem Tartrate 5 mg 08/11/24 18:48 Zolpidem 5 Mg Tab PO HS PRN Insomnia Intake and Output 08/11/24 08/11/24 08/11/24 06:59 14:59 22:59 Intake Total 550.5 Balance 550.5 Intake: IV 550.5 Other: Weight 73.21 kg Patient Weight 08/12/24 06:59 Weight 73.21 kg 08/11/24 16:41 08/11/24 16:41
[2024-08-11 19:08] LABS: Glucose,Whole Blood 173 mg/dL (70-110)
--- NOTE | 2024-08-11 19:10 | P.CARDCATH ---
Date of Procedure: 08/11/24 Description of Procedure: Cardiac Catheterization: The patient is a 73-year-old male with a known history of CAD, status post stenting of the LAD and left circumflex in April 2023 who presented with an acute chest discomfort complicated by ventricular fibrillation requiring cardioversion. Recommendations were made regarding cardiac catheterization, the risks and the complications were discussed with the patient who is in full understanding and agreement. Procedure Description: Patient was brought to environmental laboratory technician in fasting semi-sedated state after receiving Fentanyl and Benadryl achieiving moderate conscious sedated state. Using Xylocaine Anesthesia and modified Seldinger technique, a 6-Liberian sheath was introduced in the right femoral artery using micropuncture technique. Subsequently, selective coronary angiography was performed using a 6-Liberian 4 bend right Richa catheter and 6 Liberian CLS 3.5 guiding catheter. Multiple views of the coronary artery including hemiaxial views were obtained. The 6 Liberian pigtail catheter was used to cross the aortic valve and LVEDP was calculated. PCI: After obtaining images with the CLS 3.5 guiding catheter a 0.014 BMW J-wire was advanced in the left circumflex and positioned in the obtuse marginal branch across the total occlusion with the help of a fine cross microcatheter. Subsequently a 2.5 x 12 mm trek balloon was advanced and 1 inflation at 8 meghana was done. A guide liner was advanced and multiple attempt to advanced a Pole Star eye IVUS catheter were unsuccessful, at that time a 3.0 x 12 mm Xience more point stent was advanced and deployed at 16 meghana, subsequently a 3.0 x 12 mm NC trek balloon was advanced and inflation at 10 meghana were done. Attempt to advance the IVUS catheter were unsuccessful. At that point the wire was removed and introduced in the LAD and positioned distally. The IVUS catheter was advanced and images were obtained. Subsequently a 3.5 x 15 mm Xience more point stent was deployed in the proximal LAD at 16 meghana. After removing the balloon repeat IVUS imaging was performed and revealed some areas of under deployment in the new and old stent. A 4.0 x 20 mm NC trek balloon was advanced and 2 inflations at 10 meghana were done. After removing the balloon images of the left circumflex showed haziness and a possible flap proximal to the stent. The wire was reintroduced in the left circumflex and a 3.25 x 8 mm Xience more point stent was deployed proximal to the first 1 at 16 meghana. IVUS imaging were performed and subsequently a 4.0 x 20 mm NC trek balloon was advanced and inflation in both stents were done at 10 meghana. After the last image the wire was removed. Following that, catheter and sheath were removed. Hemostasis was obtained with deployment of Angio-Seal. There was no immediate complication. Patient was returned to room in stable condition. Of note, the patient received a total of 4000 units of intravenous heparin, his ACT was monitored. Because of the haziness that was noted patient was started on Aggrastat and continued on amiodarone. He received an oral loading dose of ticagrelor. He was pain-free at the end of the procedure Findings: Left main: This is a large size vessel, bifurcating into LAD and left circumflex, left main has no obstructive disease. LAD: This is a large size vessel with stent from the ostium to the mid segment. Proximally prior to the takeoff of the first septal filter tender jelly there is an 80 to 90% stenosis with haziness suggestive of a ruptured plaque. The rest of the vessel has no high-grade stenosis. Left circumflex: This is a large nondominant vessel the stented segment proximally is occluded with haziness and minimal antegrade flow RCA: This is a large dominant vessel bifurcating distally to PDA and PLV, the right coronary artery and mid segment has 30 to 40% intimal plaque Left Ventriculogram: Not performed Hemodynamics: There was no gradient across aortic valve, LVEDP was 20-24 mmHg Conclusion: 1. Acutely occluded proximal left circumflex 2. Severe lesion in the proximal LAD with haziness in the prior stent 3. Mild disease in the RCA 4. Successful stenting of the left circumflex with reduction of stenosis from 100% to less than 5% with IVUS imaging and VISHAL-3 flow 5. Successful stenting of the proximal LAD with reduction of stenosis from 80% to less than 5% with VISHAL-3 flow Recommendations: The patient will continue on aspirin and ticagrelor for 1 year without any interruption in addition to aggressive coronary risk modification, maintaining LAD less than 70 mg/dL. He will continue on Aggrastat for 12 hours and if stable amiodarone will be stopped. Close follow-up of his left ventricle systolic function will be made. The findings and the recommendations were discussed with the patient and the family and they were in full understanding and agreement. Duration of sedation is 82 minutes.
[2024-08-11] MEDS: SODIUM CHLORIDE 0.9% 1,000 ML in EMPTY BAG 1 BAG IV SCH (19:39)
[2024-08-11 20:23] LABS: Basophils % (A) 0 %; Eosinophils % (A) 0 %; HCT 46.4 % (39.0-53.0); HGB 15.3 gm/dL (13.0-17.5); Lymphocytes # (A) 0.6 k/uL (1.0-4.8); Lymphocytes % (A) 4 %; MCH 32.5 pg (25.0-35.0); MCV 98.6 fL (80.0-100.0); Mean Platelet Volume 8.3; Monocytes # (A) 0.8 k/uL (0-1.0); Monocytes % (A) 5 %; Neutrophils # (A) 13.9 k/uL (1.3-7.7); Neutrophils % (A) 91 %; Platelet Count 205 k/uL (150-450); RBC 4.71 m/uL (4.30-5.90); RDW 12.9 % (11.5-15.5); WBC 15.3 k/uL (3.8-10.6)
[2024-08-11 20:36] LABS: ALT 23 U/L (4-49); AST 60 U/L (17-59); African American GFR (CKD) >90 (>60 ml/min/1.73 sqM); Alkaline Phosphatase 72 U/L (38-126); Anion Gap 13 mmol/L; Blood Urea Nitrogen 15 mg/dL (9-20); Calcium 8.4 mg/dL (8.4-10.2); Carbon Dioxide 20 mmol/L (22-30); Chloride 103 mmol/L (98-107); Glucose 180 mg/dL (74-99); Non-African American GFR(CKD) >90 (>60 ml/min/1.73 sqM); Potassium 4.2 mmol/L (3.5-5.1); Sodium 136 mmol/L (137-145); Total Bilirubin 0.6 mg/dL (0.2-1.3); Total Protein 6.6 g/dL (6.3-8.2)
[2024-08-11] MEDS: AMIODARONE 450 MG in DEXTROSE 5% IN WATER 250 ML IV SCH (22:18)
[2024-08-12 05:15] LABS: Basophils % (A) 0 %; Eosinophils # (A) 0.1 k/uL (0-0.7); Eosinophils % (A) 0 %; HCT 42.2 % (39.0-53.0); HGB 14.1 gm/dL (13.0-17.5); Lymphocytes # (A) 0.7 k/uL (1.0-4.8); Lymphocytes % (A) 6 %; MCH 32.3 pg (25.0-35.0); MCHC 33.3 g/dL (31.0-37.0); MCV 96.8 fL (80.0-100.0); Mean Platelet Volume 7.9; Monocytes # (A) 0.7 k/uL (0-1.0); Monocytes % (A) 6 %; Neutrophils # (A) 10.1 k/uL (1.3-7.7); Neutrophils % (A) 86 %; Platelet Count 198 k/uL (150-450); RBC 4.36 m/uL (4.30-5.90); WBC 11.7 k/uL (3.8-10.6)
[2024-08-12 05:21] LABS: African American GFR (CKD) >90 (>60 ml/min/1.73 sqM); Anion Gap 10 mmol/L; Blood Urea Nitrogen 15 mg/dL (9-20); Calcium 8.5 mg/dL (8.4-10.2); Carbon Dioxide 21 mmol/L (22-30); Chloride 104 mmol/L (98-107); Glucose 156 mg/dL (74-99); Non-African American GFR(CKD) >90 (>60 ml/min/1.73 sqM); Potassium 4.3 mmol/L (3.5-5.1); Sodium 135 mmol/L (137-145)
[2024-08-12] MEDS: carvediloL 3.125 MG TAB PO SCH (06:53)
[2024-08-12] MEDS ORDERED: ASPIRIN 325 MG TAB PO SCH (09:00)
--- NOTE | 2024-08-12 09:23 | P.PN ---
Subjective Progress Note Date: 08/12/24 PROGRESS NOTE The patient is a 73-year-old male with a known history of CAD, followed by Dr. Romano and underwent stenting of the LAD and left circumflex in April 2023 and had history of ischemic cardiomyopathy. His initial procedure was done with Impella support because of hemodynamic instability and ventricular fibrillation. He has done well since that time until today when he had a sudden chest discomfort with dyspnea, on arrival to the EMS he had ventricular fibrillation requiring cardioversion. On arrival to the emergency room he was having chest pain but was in sinus mechanism. He has underlying left bundle branch block. Patient was evaluated in the cardiac catheterization laboratory. He was having chest discomfort and dyspnea. Mildly uncomfortable but blood pressure and heart rate were stable. According to him he has done well until this event. He has no PND, orthopnea or peripheral edema. He denies any prior dizziness or palpitations. His activity level has been stable and he has been walking on a regular basis. He is a non-smoker. August 12: The patient underwent coronary angioplasty and stenting of the totally occluded left circumflex and severe disease in the proximal LAD. He is feeling well this morning, he denies any chest discomfort. Hemodynamically he is stable. He has no further arrhythmia. He denies any palpitations. He denies any nausea or vom iting. He is in sinus mechanism with underlying chronic left bundle branch block. He had issues with atorvastatin in the past and may need to be evaluated as an outpatient for PCSK9 inhibitors injection. I discussed with him the importance of tight control of his lipid. Medications: Aspirin, ticagrelor 90 mg twice a day, losartan 12.5 mg twice a day, carvedilol 3.125 mg twice a day, ezetimibe 10 mg daily, atorvastatin 40 mg daily. Patient was on Eliquis as an outpatient PHYSICAL EXAMINATION: Blood pressure 105/70 heart rate 80 LUNGS: Clear to auscultation HEART: Regular rate and rhythm, S1, S2. No S3. No systolic murmur ABDOMEN: Soft, nontender, no organomegaly EXTREMETIES: No edema, right groin no hematoma LAB: Potassium 4.3, BUN 15, creatinine 0.7, hemoglobin 14.1 IMPRESSION: 1. Status post acute coronary syndrome with underlying left bundle branch block and acute occlusion of the left circumflex and significant disease in the LAD. Status post stenting 2. Known history of severe ischemic cardiomyopathy status post stenting in April 2023 3. Hyperlipidemia 4. History of paroxysmal atrial fibrillation PLAN: 1. Start Eliquis 5 mg twice a day 2. Stop IV amiodarone 3. Patient is of Aggrastat 4. Obtain an echocardiogram with Doppler 5. Increase physical activity 6. Depending on his progress further recommendations will be made, depending on the ejection fraction he may require a LifeVest. Objective - Vital Signs Vital signs: Vital Signs Temp 98.0 F 08/12/24 08:00 Pulse 84 08/12/24 08:00 Resp 16 08/12/24 08:00 BP 105/72 08/12/24 08:00 Pulse Ox 95 08/12/24 08:00 FiO2 Intake & Output 08/11/24 08/12/24 08/12/24 18:59 06:59 18:59 Intake Total 550.5 1036.656 Output Total 650 0 Balance 550.5 386.656 0 Weight 73.21 kg 74.3 kg Intake: IV 550.5 Intake, IV Titration 1036.656 Amount Sodium Chloride 0.9% 1, 878.52 000 ml In Empty Bag 1 bag @ 1 ML/KG/HR 73.21 mls/ hr IV .[id number] [facility] Rx#: [id number] Tirofiban 12.5MG-250Ml Ns 158.136 250 ml @ 0.15 MCG/KG/MIN 13.178 mls/hr IV . [id number] [facility] Rx#:[id number] Output: Urine 650 0 Other: Voiding Method Urinal - Labs CBC & Chem 7: 08/12/24 04:55 08/12/24 04:55 Labs: Abnormal Lab Results - Last 24 Hours (Table) 08/11/24 08/11/24 08/11/24 Range/Units 16:41 16:41 16:41 WBC (3.8-10.6) k/uL Neutrophils # (1.3-7.7) k/uL Lymphocytes # (1.0-4.8) k/uL APTT 19.5 L (22.0-30.0) sec Sodium (137-145) mmol/L Potassium 3.3 L (3.5-5.1) mmol/L Carbon Dioxide 13 L (22-30) mmol/L Creatinine (0.66-1.25) mg/dL Glucose 186 H (74-99) mg/dL POC Glucose (mg/dL) (70-110) mg/dL AST (17-59) U/L Troponin I 0.070 H* (0.000-0.034) ng/mL 08/11/24 08/11/24 08/11/24 Range/Units 19:06 19:37 19:37 WBC (3.8-10.6) k/uL Neutrophils # (1.3-7.7) k/uL Lymphocytes # (1.0-4.8) k/uL APTT (22.0-30.0) sec Sodium 136 L (137-145) mmol/L Potassium (3.5-5.1) mmol/L Carbon Dioxide 20 L (22-30) mmol/L Creatinine 0.65 L (0.66-1.25) mg/dL Glucose 180 H (74-99) mg/dL POC Glucose (mg/dL) 173 H (70-110) mg/dL AST 60 H (17-59) U/L Troponin I 3.950 H* (0.000-0.034) ng/mL 08/11/24 08/11/24 08/12/24 Range/Units 19:37 22:10 04:55 WBC 15.3 H 11.7 H (3.8-10.6) k/uL Neutrophils # 13.9 H 10.1 H (1.3-7.7) k/uL Lymphocytes # 0.6 L 0.7 L (1.0-4.8) k/uL APTT (22.0-30.0) sec Sodium (137-145) mmol/L Potassium (3.5-5.1) mmol/L Carbon Dioxide (22-30) mmol/L Creatinine (0.66-1.25) mg/dL Glucose (74-99) mg/dL POC Glucose (mg/dL) (70-110) mg/dL AST (17-59) U/L Troponin I 19.200 H* (0.000-0.034) ng/mL 08/12/24 Range/Units 04:55 WBC (3.8-10.6) k/uL Neutrophils # (1.3-7.7) k/uL Lymphocytes # (1.0-4.8) k/uL APTT (22.0-30.0) sec Sodium 135 L (137-145) mmol/L Potassium (3.5-5.1) mmol/L Carbon Dioxide 21 L (22-30) mmol/L Creatinine (0.66-1.25) mg/dL Glucose 156 H (74-99) mg/dL POC Glucose (mg/dL) (70-110) mg/dL AST (17-59) U/L Troponin I (0.000-0.034) ng/mL
[2024-08-12] MEDS: LOSARTAN 25 MG TAB PO SCH (09:26)
[2024-08-12] MEDS: EZETIMIBE 10 MG TAB PO SCH (09:26)
[2024-08-12] MEDS: ASPIRIN 81 MG PO SCH (09:26)
[2024-08-12] MEDS: ATORVASTATIN 40 MG TAB PO SCH (09:26)
[2024-08-12] MEDS: SPIRONOLACTONE 25 MG TAB PO SCH (09:26)
[2024-08-12] MEDS: TICAGRELOR 90 MG TAB PO SCH (09:27)
[2024-08-12 10:28] LABS: Chol/HDL Ratio 2.73 Ratio; LDL Cholesterol,Calculated 59.6 mg/dL (0.0-131.0); VLDL Calculation 7.56 mg/dL (5.00-40.00)
[2024-08-12 10:50] LABS: Chol/HDL Ratio 2.91 Ratio; LDL Cholesterol,Calculated 70.2 mg/dL (0.0-131.0)
--- NOTE | 2024-08-12 10:56 | P.HPIM ---
History of Present Illness Patient is 71-year-old male came in with complaints of chest pain found to be in non-ST elevation myocardial infarction patient had history of coronary artery disease and ischemic cardiomyopathy in the past. Patient underwent stenting to left circumflex patient denies any chest pain at this time. Patient had ventricular fibrillation requiring cardioversion yesterday. Patient is on beta- soo losartan aspirin, Brilinta and is also on Eliquis. REVIEW OF SYSTEMS: All other systems are negative except those mentioned in the HPI PHYSICAL EXAMINATION: GENERAL: The patient is alert and oriented x3, not in any acute distress. Well developed, well nourished. HEENT: Pupils are round and equally reacting to light. EOMI. No scleral icterus. No conjunctival pallor. Normocephalic, atraumatic. No pharyngeal erythema. No thyromegaly. CARDIOVASCULAR: S1 and S2 present. No murmurs, rubs, or gallops. PULMONARY: Chest is clear to auscultation, no wheezing or crackles. ABDOMEN: Soft, nontender, nondistended, normoactive bowel sounds. No palpable organomegaly. MUSCULOSKELETAL: No joint swelling or deformity. EXTREMITIES: No cyanosis, clubbing, or pedal edema. NEUROLOGICAL: Gross neurological examination did not reveal any focal deficits. SKIN: No rashes. Assessment and plan -Acute non-ST elevation GA: Patient is status post cardiac catheterization and stenting to left circumflex continue with above-mentioned medications. Echocardiogram is pending -History of severe ischemic cardiomyopathy patient is not in heart failure exacerbation at this time -Paroxysmal atrial fibrillation patient is presently sinus rhythm continue with anticoagulation Eliquis and rate control medications. IV amiodarone was discontinued -Hyperlipidemia DVT prophylaxis: On Eliquis Past Medical History Past Medical History: Myocardial Infarction (GA) Additional Past Medical History / Comment(s): Factor 5- takes low dose aspirin Last Myocardial Infarction Date:: 04/13/2023 History of Any Multi-Drug Resistant Organisms: None Reported Past Surgical History: Heart Catheterization, Heart Catheterization With Stent Additional Past Surgical History / Comment(s): left hip replacement 2020, hernia repair 2013, colonoscopy, right ankle tendon repair, Past Anesthesia/Blood Transfusion Reactions: No Reported Reaction Date of Last Stent Placement:: 04/16/2023 Past Psychological History: No Psychological Hx Reported Smoking Status: Former smoker Past Alcohol Use History: None Reported, Occasional Past Drug Use History: None Reported - Past Family History Mother Family Medical History: Pulmonary Embolus Father Family Medical History: Coronary Artery Disease (CAD) Medications and Allergies Home Medications Medication Instructions Recorded Confirmed Type Fluticasone Nasal [place] [Flonase 2 spr EA NOSTRIL DAILY 04/15/23 08/11/24 History Nasal [place]] Apixaban [Eliquis] 5 mg PO BID 30 Days #60 tab 04/20/23 08/11/24 Rx Clopidogrel [Plavix] 75 mg PO DAILY 90 Days #90 tab 04/20/23 08/11/24 Rx carvediloL [Coreg] 3.125 mg PO BID-W/MEALS 30 Days 04/20/23 08/11/24 Rx #60 tab Eplerenone 12.5 mg PO DAILY 08/11/24 08/11/24 History Ezetimibe [Zetia] 10 mg PO DAILY 08/11/24 08/11/24 History Losartan [Cozaar] 12.5 mg PO DAILY 08/11/24 08/11/24 History Rosuvastatin Calcium [Crestor] 5 mg PO DAILY 08/11/24 08/11/24 History Allergies Allergy/AdvReac Type Severity Reaction Status Date / Time No Known Allergies Allergy Verified 08/11/24 16:44 Physical Exam Vitals: Vital Signs Temp Pulse Resp BP Pulse Ox 08/12/24 10:00 75 20 114/63 94 L 08/12/24 09:00 85 18 110/72 94 L 08/12/24 08:00 98.0 F 84 16 105/72 95 08/12/24 07:00 86 18 105/67 95 08/12/24 06:00 97.9 F 75 19 108/68 92 L 08/12/24 05:00 80 17 104/66 93 L 08/12/24 04:00 76 16 104/68 93 L 08/12/24 03:00 80 20 106/68 94 L 08/12/24 02:00 75 19 104/65 94 L 08/12/24 01:45 78 17 111/69 93 L 08/12/24 01:30 83 18 108/69 94 L 08/12/24 01:15 76 19 110/72 94 L 08/12/24 01:00 89 15 106/68 93 L 08/12/24 00:45 76 18 110/70 93 L 08/12/24 00:30 80 18 107/68 93 L 08/12/24 00:15 78 17 108/68 92 L 08/12/24 00:00 77 19 106/68 93 L 08/11/24 23:45 80 20 104/69 93 L 08/11/24 23:30 81 18 104/71 93 L 08/11/24 23:15 75 18 109/70 92 L 08/11/24 23:00 78 20 108/71 91 L 08/11/24 22:45 78 19 107/69 91 L 08/11/24 22:30 78 18 102/63 90 L 08/11/24 22:15 76 19 111/67 92 L 08/11/24 22:00 82 18 109/71 91 L 08/11/24 21:45 79 20 112/70 92 L 08/11/24 21:30 82 18 105/67 91 L 08/11/24 21:15 79 17 108/68 91 L 08/11/24 21:00 76 16 108/70 92 L 08/11/24 20:45 80 18 107/74 91 L 08/11/24 20:30 76 15 108/68 91 L 08/11/24 20:15 79 17 112/66 91 L 08/11/24 20:00 77 18 107/67 91 L 08/11/24 19:45 76 18 107/74 93 L 08/11/24 19:30 76 18 113/73 92 L 08/11/24 19:15 98.1 F 72 15 116/74 93 L 08/11/24 16:47 82 32 H 132/74 97 08/11/24 16:39 81 16 120/76 100 08/11/24 16:33 97.6 F 87 30 H 126/83 96 Intake and Output 08/11/24 08/12/24 08/12/24 22:59 06:59 14:59 Intake Total 896.052 691.104 Output Total 0 650 0 Balance 896.052 41.104 0 Intake: IV 550.5 Intake, IV Titration 345.552 691.104 Amount Sodium Chloride 0.9% 1, 292.84 585.68 000 ml In Empty Bag 1 bag @ 1 ML/KG/HR 73.21 mls/ hr IV .[id number] [facility] Rx#: [id number] Tirofiban 12.5MG-250Ml Ns 52.712 105.424 250 ml @ 0.15 MCG/KG/MIN 13.178 mls/hr IV . [id number] [facility] Rx#:[id number] Output: Urine 0 650 0 Other: Voiding Method Urinal Urinal Toilet Urinal Weight 73.21 kg 74.3 kg Results CBC & Chem 7: 08/12/24 04:55 08/12/24 04:55 Labs: Abnormal Lab Results - Last 24 Hours (Table) 08/11/24 08/11/24 08/11/24 Range/Units 16:41 16:41 16:41 WBC (3.8-10.6) k/uL Neutrophils # (1.3-7.7) k/uL Lymphocytes # (1.0-4.8) k/uL APTT 19.5 L (22.0-30.0) sec Sodium (137-145) mmol/L Potassium 3.3 L (3.5-5.1) mmol/L Carbon Dioxide 13 L (22-30) mmol/L Creatinine (0.66-1.25) mg/dL Glucose 186 H (74-99) mg/dL POC Glucose (mg/dL) (70-110) mg/dL AST (17-59) U/L Troponin I 0.070 H* (0.000-0.034) ng/mL HDL Cholesterol (40.00-60.00) mg/dL 08/11/24 08/11/24 08/11/24 Range/Units 19:06 19:37 19:37 WBC (3.8-10.6) k/uL Neutrophils # (1.3-7.7) k/uL Lymphocytes # (1.0-4.8) k/uL APTT (22.0-30.0) sec Sodium 136 L (137-145) mmol/L Potassium (3.5-5.1) mmol/L Carbon Dioxide 20 L (22-30) mmol/L Creatinine 0.65 L (0.66-1.25) mg/dL Glucose 180 H (74-99) mg/dL POC Glucose (mg/dL) 173 H (70-110) mg/dL AST 60 H (17-59) U/L Troponin I 3.950 H* (0.000-0.034) ng/mL HDL Cholesterol (40.00-60.00) mg/dL 08/11/24 08/11/24 08/12/24 Range/Units 19:37 22:10 04:55 WBC 15.3 H 11.7 H (3.8-10.6) k/uL Neutrophils # 13.9 H 10.1 H (1.3-7.7) k/uL Lymphocytes # 0.6 L 0.7 L (1.0-4.8) k/uL APTT (22.0-30.0) sec Sodium (137-145) mmol/L Potassium (3.5-5.1) mmol/L Carbon Dioxide (22-30) mmol/L Creatinine (0.66-1.25) mg/dL Glucose (74-99) mg/dL POC Glucose (mg/dL) (70-110) mg/dL AST (17-59) U/L Troponin I 19.200 H* (0.000-0.034) ng/mL HDL Cholesterol (40.00-60.00) mg/dL 08/12/24 08/12/24 Range/Units 04:55 04:55 WBC (3.8-10.6) k/uL Neutrophils # (1.3-7.7) k/uL Lymphocytes # (1.0-4.8) k/uL APTT (22.0-30.0) sec Sodium 135 L (137-145) mmol/L Potassium (3.5-5.1) mmol/L Carbon Dioxide 21 L (22-30) mmol/L Creatinine (0.66-1.25) mg/dL Glucose 156 H (74-99) mg/dL POC Glucose (mg/dL) (70-110) mg/dL AST (17-59) U/L Troponin I (0.000-0.034) ng/mL HDL Cholesterol 38.80 L (40.00-60.00) mg/dL Thrombosis Risk Factor Assmnt - Choose All That Apply Any of the Below Risk Factors Present?: No Each Risk Factor Represents 2 Points: Age 61-74 years Each Risk Factor Represents 3 Points: Positive Factor V Leiden Thrombosis Risk Factor Assessment Total Risk Factor Score: 5 Thrombosis Risk Factor Assessment Level: High Risk
[2024-08-12] MEDS: APIXABAN 5 MG TAB PO SCH (21:55)
[2024-08-13 07:07] LABS: HCT 38.8 % (39.0-53.0); MCH 32.6 pg (25.0-35.0); MCHC 33.6 g/dL (31.0-37.0); Mean Platelet Volume 8.1; Platelet Count 162 k/uL (150-450); RDW 13.1 % (11.5-15.5); WBC 10.9 k/uL (3.8-10.6)
[2024-08-13 07:25] LABS: African American GFR (CKD) >90 (>60 ml/min/1.73 sqM); Anion Gap 6 mmol/L; Blood Urea Nitrogen 14 mg/dL (9-20); Calcium 8.6 mg/dL (8.4-10.2); Carbon Dioxide 24 mmol/L (22-30); Chloride 106 mmol/L (98-107); Glucose 102 mg/dL (74-99); Non-African American GFR(CKD) >90 (>60 ml/min/1.73 sqM); Potassium 4.3 mmol/L (3.5-5.1); Sodium 136 mmol/L (137-145)
[2024-08-13 12:29] VITALS: BMI 23.5
--- NOTE | 2024-08-13 13:35 | CA ---
Transthoracic Echo Report Name: Shahriar Maddox Age: 73 Gender: M : 1950 Exam Date: 08/13/2024 09:20 Exam Location: [facility] Ht (in): 70 Wt (lb): 161 Ordering Physician: Leticia Abernathy MD ([id number]) Attending/Referring Phys: [employer] Supervisor Faye Gardner RDCS Procedure CPT: Indications: [place] Cardiac Hx: Technical Quality: Good Contrast 1: Total Dose (mL): Contrast 2: Total Dose (mL): MEASUREMENTS (Male / Female) Normal Values 2D ECHO LV Diastolic Diameter PLAX 6.0 cm 4.2 - 5.9 / 3.9 - 5.3 cm LV Systolic Diameter PLAX 5.3 cm IVS Diastolic Thickness 0.9 cm 0.6 - 1.0 / 0.6 - 0.9 cm LVPW Diastolic Thickness 0.9 cm 0.6 - 1.0 / 0.6 - 0.9 cm LV Relative Wall Thickness 0.3 LVOT Diameter 2.1 cm Aortic Root Diameter 2.9 cm LV Diastolic Volume MOD BP 197.1 cm??? 67 - 155 / 56 - 104 cm??? LV Systolic Volume MOD BP 143.0 cm??? 22 - 58 / 19 - 49 cm??? LV Ejection Fraction MOD BP 27.4 % >= 55 % LV Cardiac Index MOD BP 2447.0 cm???/min???m??? LV Diastolic Volume MOD 4C 202.6 cm??? LV Systolic Volume MOD 4C 152.4 cm??? LV Ejection Fraction MOD 4C 24.8 % LV Cardiac Index MOD 4C 2272.2 cm???/min???m??? LV Diastolic Length 4C 9.4 cm LV Systolic Length 4C 8.5 cm LV Diastolic Volume MOD 2C 190.6 cm??? LV Systolic Volume MOD 2C 129.4 cm??? LV Ejection Fraction MOD 2C 32.1 % LV Cardiac Index MOD 2C 2770.3 cm???/min???m??? LV Diastolic Length 2C 9.5 cm LV Systolic Length 2C 8.2 cm Ascending Aorta Diameter 3.4 cm DOPPLER AV Peak Velocity 125.4 cm/s AV Peak Gradient 6.3 mmHg AV Mean Velocity 91.8 cm/s AV Mean Gradient 3.7 mmHg AV Velocity Time Integral 23.5 cm LVOT Peak Velocity 94.7 cm/s LVOT Peak Gradient 3.6 mmHg LVOT Velocity Time Integral 17.1 cm LVOT Stroke Volume 59.5 cm??? LVOT Stroke Volume Index 31.3 ml/m??? LVOT Cardiac Index 2693.6 cm???/min???m??? AV Area Cont Eq vti 2.5 cm??? AV Area Cont Eq pk 2.6 cm??? Mitral E Point Velocity 85.0 cm/s Mitral A Point Velocity 74.1 cm/s Mitral E to A Ratio 1.1 MV Deceleration Time 120.6 ms MV E' Velocity 5.1 cm/s Mitral E to MV E' Ratio 16.6 TR Peak Velocity 295.8 cm/s TR Peak Gradient 35.0 mmHg Right Atrial Pressure 10.0 mmHg Pulmonary Artery Systolic Pressu 45.0 mmHg Right Ventricular Systolic Press 45.0 mmHg PV Peak Velocity 75.8 cm/s PV Peak Gradient 2.3 mmHg FINDINGS Left Ventricle Left ventricular ejection fraction is estimated at 25-30 %. Mildly increased left ventricular diastolic diameter. Moderately increased left ventricular diastolic volume. Severely increased left ventricular systolic volume. Severely decreased left ventricular ejection fraction. Left ventricular wall thickness normal. Right Ventricle Mild right ventricular dilatation with normal function. Moderate pulmonary hypertension. Right Atrium Right atrial dilatation. Left Atrium Moderate left atrial dilatation. Mitral Valve Mitral valve thickened. No evidence for mitral valve prolapse. No mitral stenosis. Moderate mitral regurgitation. Aortic Valve Trileaflet aortic valve. No aortic stenosis. No aortic regurgitation. Tricuspid Valve Structurally normal tricuspid valve. No tricuspid stenosis. Moderate tricuspid regurgitation. Pulmonic Valve Structurally normal pulmonic valve. No pulmonic stenosis. Mild pulmonic regurgitation. Pericardium No pericardial effusion. Aorta Normal size aortic root and proximal ascending aorta. CONCLUSIONS LVEF 25 to 30% Severe dilated LV cavity. Severely reduced global LV systolic function Moderate biatrial dilatation Moderate mitral regurgitation Moderate tricuspid regurgitation, Moderate pulmonary hypertension with RVSP of 45 mmHg Previewed by: Dr Charli Garcia (Electronically Signed) Final Date: 13 August 2024 13:34
--- NOTE | 2024-08-13 13:52 | P.PN ---
Subjective Progress Note Date: 08/13/24 Principal diagnosis: Hospital course: Patient is 71-year-old male came in with complaints of chest pain found to be in non-ST elevation myocardial infarction patient had history of coronary artery disease and ischemic cardiomyopathy in the past. Patient underwent stenting to left circumflex patient denies any chest pain at this time. Patient had ventricular fibrillation requiring cardioversion yesterday. Patient is on beta- soo losartan aspirin, Brilinta and is also on Eliquis. 08/13/24: Patient seen and examined at bedside today. Patient complains of soreness on his back that he attributes to the compressions. Denies any chest pain. Labs today show WBC 10.9, sodium 136, creatinine 0.76. Cholesterol panel shows triglyceride 37.8, cholesterol 106, HDL 59.6, VLDL 7.56, HDL 38.8. Review of systems: Pertinent positives and negatives as discussed in HPI, a complete review of systems was performed and all other systems are negative. Vitals: Signs Reviewed Physical examination: General: nontoxic, no distress, appears at stated age Derm: warm, dry, intact Head: atraumatic, normocephalic, symmetric Eyes: EOMI, anicteric sclera Mouth: no lip lesion, mucus membranes moist Cardiovascular: S1 S2 reg, no murmur Lungs: CTA bilateral, no rhonchi, no rales, no accessory muscle use Abdominal: soft, non-tender to palpataion Extremities: No cyanosis, clubbing, or pedal edema. Neuro: Alert, Oriented, Gross neurological examination did not reveal any focal deficits. Psych: well appearing, appropriate affect Assessment/Plan: Patient is a 73 year old male with past medical history of severe ischemic cardiomyopathy, paroxysmal atrial fibrillation, hyperlipidemia who presented to the ED with chest pain. He has been diagnosed with acute NSTEMI and is s/p cardiac catheterization and stenting to LAD and left circumflex. Plan is to get an echocardiogram. Active: #. Acute coronary syndrome #. S/p cardiac catheterization and stenting to LAD and left circumflex Continue nitroglycerin 0.4 mg sublingual Q5M as needed for pain management Continue aspirin 81 mg p.o. daily, ticagrelor 90 mg p.o. twice daily, atorvastatin 40 mg p.o. daily, Eliquis 5 mg p.o. twice daily Echocardiogram shows EF 25 to 30%, severely dilated LV cavity, severely reduced global LV systolic function, moderate right atrial dilatation, moderate MR, moderate TR, moderate pulmonary hypertension with RVSP of 45 mmHg. Continue telemetry monitoring Cardiology is following, recommend increasing physical activity and Lifevest depending on the ejection fraction #. Symptomatic bradycardia Continue atropine 0.5 mg IV once as needed #. Heartburn Continue Maalox 30 mL p.o. every 4 hours as needed #. Insomnia Continue zolpidem 5 mg p.o. at bedtime as needed Chronic: #. History of severe ischemic cardiomyopathy, not in acute heart failure exacerb ation #. Paroxysmal atrial fibrillation, currently in NSR, on anticoagulation #. Hyperlipidemia Continue home medications ezetimibe 10 mg p.o. daily, losartan 12.5 mg p.o. daily, spironolactone 12.5 mg p.o. twice daily, carvedilol 3.125 mg p.o. twice daily F: None E: Replete as required N: Heart healthy diet (no dairy, no red meat) DVT prophylaxis: Eliquis 5mg PO BID Objective - Vital Signs Vital signs: Vital Signs Temp 99.2 F 08/13/24 08:07 Pulse 86 08/13/24 08:07 Resp 17 08/13/24 08:07 BP 105/62 08/13/24 08:07 Pulse Ox 95 08/13/24 08:07 FiO2 Intake & Output 08/12/24 08/13/24 08/13/24 18:59 06:59 18:59 Intake Total 360 480 370 Output Total 250 0 Balance 110 480 370 Weight 74.4 kg Intake: IV 10 Invasive Line 2 10 Oral 360 480 360 Output: Gastric Drainage 0 Urine 250 Stool 0 0 Urine/Stool Mix 0 Emesis 0 Oral Regurgitation 0 Other 0 Other: Voiding Method Toilet Toilet Urinal Urinal # Voids 0 # Bowel Movements 0 - Labs CBC & Chem 7: 08/13/24 06:04 08/13/24 06:04 Labs: Abnormal Lab Results - Last 24 Hours (Table) 08/12/24 08/13/24 08/13/24 Range/Units 04:55 06:04 06:04 WBC 10.9 H (3.8-10.6) k/uL RBC 4.00 L (4.30-5.90) m/uL Hct 38.8 L (39.0-53.0) % Sodium 136 L (137-145) mmol/L Glucose 102 H (74-99) mg/dL HDL Cholesterol 38.80 L (40.00-60.00) mg/dL
--- NOTE | 2024-08-13 14:24 | P.PN ---
Subjective HISTORY OF PRESENT ILLNESS: The patient is a 73-year-old male with a known history of CAD, followed by Dr. Romano and underwent stenting of the LAD and left circumflex in April 2023 and had history of ischemic cardiomyopathy. His initial procedure was done with Impella support because of hemodynamic instability and ventricular fibrillation. He has done well since that time until today when he had a sudden chest discomfort with dyspnea, on arrival to the EMS he had ventricular fibrillation requiring cardioversion. On arrival to the emergency room he was having chest pain but was in sinus mechanism. He has underlying left bundle branch block. Patient was evaluated in the cardiac catheterization laboratory. He was having chest discomfort and dyspnea. Mildly uncomfortable but blood pressure and heart rate were stable. According to him he has done well until this event. He has no PND, orthopnea or peripheral edema. He denies any prior dizziness or palpitations. His activity level has been stable and he has been walking on a regular basis. He is a non-smoker. August 12: The patient underwent coronary angioplasty and stenting of the totally occluded left circumflex and severe disease in the proximal LAD. He is feeling well this morning, he denies any chest discomfort. Hemodynamically he is stable. He has no further arrhythmia. He denies any palpitations. He denies any nausea or vomiting. He is in sinus mechanism with underlying chronic left bundle branch block. He had issues with atorvastatin in the past and may need to be evaluated as an outpatient for PCSK9 inhibitors injection. I discussed with him the importance of tight control of his lipid. 08/13/2024 Patient examined this morning at the bedside. Patient currently denies chest pain or pressure. He denies shortness of breath. Telemetry reveals sinus mechanism with left bundle branch block. 2D echo is pending. PHYSICAL EXAM: VITAL SIGNS: Reviewed. GENERAL: Well-developed in no acute distress. NECK: Supple. No JVD or thyromegaly LUNGS: Respirations even and unlabored. Lungs essentially clear to auscultation bilaterally. HEART: Regular rate and rhythm. S1 and S2 heard. EXTREMITIES: Normal range of motion. No clubbing or cyanosis. Peripheral pulses intact. No lower extremity edema ASSESSMENT: 1. Status post acute coronary syndrome with underlying left bundle branch block and acute occlusion of the left circumflex and significant disease in the LAD. Status post stenting 2. Known history of severe ischemic cardiomyopathy status post stenting in April 2023 3. Hyperlipidemia 4. History of paroxysmal atrial fibrillation PLAN: Continue current cardiac medications Continue telemetry monitoring Await results of 2D echo Increase activity as tolerated Continue to monitor patient for additional 24 hours Further recommendations pending patient course Nurse practitioner note has been reviewed by physician. Signing provider agrees with the documented findings, assessment, and plan of care documented by CAR VARNISHER as a scribe. Objective - Vital Signs Vital signs: Vital Signs Temp 98.1 F 08/13/24 12:00 Pulse 77 08/13/24 12:00 Resp 18 08/13/24 12:00 BP 101/67 08/13/24 12:00 Pulse Ox 97 08/13/24 12:00 FiO2 Intake & Output 08/12/24 08/13/24 08/13/24 18:59 06:59 18:59 Intake Total 360 480 498 Output Total 250 0 Balance 110 480 498 Weight 74.4 kg 74.4 kg Intake: IV 20 Invasive Line 2 20 Oral 360 480 478 Output: Gastric Drainage 0 Urine 250 Stool 0 0 Urine/Stool Mix 0 Emesis 0 Oral Regurgitation 0 Other 0 Other: Voiding Method Toilet Toilet Toilet Urinal Urinal Urinal # Voids 0 # Bowel Movements 0 - Labs CBC & Chem 7: 08/13/24 06:04 08/13/24 06:04 Labs: Abnormal Lab Results - Last 24 Hours (Table) 08/13/24 08/13/24 Range/Units 06:04 06:04 WBC 10.9 H (3.8-10.6) k/uL RBC 4.00 L (4.30-5.90) m/uL Hct 38.8 L (39.0-53.0) % Sodium 136 L (137-145) mmol/L Glucose 102 H (74-99) mg/dL
[2024-08-14 06:37] LABS: HGB 13.4 gm/dL (13.0-17.5); MCHC 34.2 g/dL (31.0-37.0); MCV 96.4 fL (80.0-100.0); Mean Platelet Volume 8.4; Platelet Count 169 k/uL (150-450); RBC 4.05 m/uL (4.30-5.90); RDW 12.9 % (11.5-15.5); WBC 9.5 k/uL (3.8-10.6)
[2024-08-14 06:49] LABS: African American GFR (CKD) >90 (>60 ml/min/1.73 sqM); Anion Gap 8 mmol/L; Blood Urea Nitrogen 16 mg/dL (9-20); Calcium 8.7 mg/dL (8.4-10.2); Carbon Dioxide 23 mmol/L (22-30); Chloride 104 mmol/L (98-107); Glucose 107 mg/dL (74-99); Non-African American GFR(CKD) >90 (>60 ml/min/1.73 sqM); Potassium 4.2 mmol/L (3.5-5.1); Sodium 135 mmol/L (137-145)
[2024-08-14 13:02] VITALS: BP 103/64; PULSE 77; RESP 18; TEMP 98.2
--- NOTE | 2024-08-14 13:15 | P.PN ---
Subjective HISTORY OF PRESENT ILLNESS: The patient is a 73-year-old male with a known history of CAD, followed by Dr. Romano and underwent stenting of the LAD and left circumflex in April 2023 and had history of ischemic cardiomyopathy. His initial procedure was done with Impella support because of hemodynamic instability and ventricular fibrillation. He has done well since that time until today when he had a sudden chest discomfort with dyspnea, on arrival to the EMS he had ventricular fibrillation requiring cardioversion. On arrival to the emergency room he was having chest pain but was in sinus mechanism. He has underlying left bundle branch block. Patient was evaluated in the cardiac catheterization laboratory. He was having chest discomfort and dyspnea. Mildly uncomfortable but blood pressure and heart rate were stable. According to him he has done well until this event. He has no PND, orthopnea or peripheral edema. He denies any prior dizziness or palpitations. His activity level has been stable and he has been walking on a regular basis. He is a non-smoker. August 12: The patient underwent coronary angioplasty and stenting of the totally occluded left circumflex and severe disease in the proximal LAD. He is feeling well this morning, he denies any chest discomfort. Hemodynamically he is stable. He has no further arrhythmia. He denies any palpitations. He denies any nausea or vomiting. He is in sinus mechanism with underlying chronic left bundle branch block. He had issues with atorvastatin in the past and may need to be evaluated as an outpatient for PCSK9 inhibitors injection. I discussed with him the importance of tight control of his lipid. 08/13/2024 Patient examined this morning at the bedside. Patient currently denies chest pain or pressure. He denies shortness of breath. Telemetry reveals sinus mechanism with left bundle branch block. 2D echo is pending. 08/14/2024 Patient examined this morning the bedside. Patient currently denies chest pain or pressure. She denies shortness of breath. Echocardiogram completed revealing ejection fraction 25 to 30%, moderate pulmonary hypertension, moderate MR, moderate TR. Telemetry Veals sinus mechanism with left bundle branch block. PHYSICAL EXAM: VITAL SIGNS: Reviewed. GENERAL: Well-developed in no acute distress. NECK: Supple. No JVD or thyromegaly LUNGS: Respirations even and unlabored. Lungs essentially clear to auscultation bilaterally. HEART: Regular rate and rhythm. S1 and S2 heard. EXTREMITIES: Normal range of motion. No clubbing or cyanosis. Peripheral pulses intact. No lower extremity edema ASSESSMENT: 1. Status post acute coronary syndrome with underlying left bundle branch block and acute occlusion of the left circumflex and significant disease in the LAD. Status post stenting 2. Known history of severe ischemic cardiomyopathy status post stenting in April 2023 3. Hyperlipidemia 4. History of paroxysmal atrial fibrillation Moderate pulmonary hypertension PLAN: Continue current cardiac medications Continue triple therapy with aspirin, Brilinta, and Eliquis upon discharge. After 1 month may consider changing Brilinta to Plavix. Consider adding Farxiga on an outpatient basis. Discussed LifeVest with patient who has declined Patient may be discharged home today from a cardiac standpoint Nurse practitioner note has been reviewed by physician. Signing provider agrees with the documented findings, assessment, and plan of care documented by FORGING ROLL OPERATOR as a scribe. Objective - Vital Signs Vital signs: Vital Signs Temp 98.4 F 08/14/24 08:38 Pulse 79 08/14/24 08:38 Resp 17 08/14/24 08:38 BP 102/69 08/14/24 08:38 Pulse Ox 94 L 08/14/24 08:38 FiO2 Intake & Output 08/13/24 08/14/24 08/14/24 18:59 06:59 18:59 Intake Total 498 Balance 498 Weight 74.4 kg 74.6 kg Intake: IV 20 Invasive Line 2 20 Oral 478 Other: Voiding Method Toilet Urinal # Voids 2 1 - Labs CBC & Chem 7: 08/14/24 06:07 08/14/24 06:07 Labs: Abnormal Lab Results - Last 24 Hours (Table) 08/14/24 08/14/24 Range/Units 06:07 06:07 RBC 4.05 L (4.30-5.90) m/uL Sodium 135 L (137-145) mmol/L Glucose 107 H (74-99) mg/dL
--- NOTE | 2024-08-14 13:24 | P.DS ---
Providers Date of admission: 08/11/24 16:38 Expected date of discharge: 08/14/24 Attending physician: Jarad Cordova Consults: 08/11/24 16:38 Consult Physician Urgent Consulting Provider: Leticia Abernathy Consult Reason/Comments: STEMI/v-fib Do you want consulting provider notified?: Already Contacted 08/11/24 18:48 Consult Physician Routine Consulting Provider: [facility] Consult Reason/Comments: Post Interventional Patient Do you want consulting provider notified?: Already Contacted Primary care physician: Alex Meza Hospital Course: Discharge diagnosis: Acute coronary syndrome S/p cardiac catheterization and stenting to LAD and left circumflex Symptomatic bradycardia Heartburn Insomnia History of severe ischemic cardiomyopathy, not in acute heart failure exacerbation Paroxysmal atrial fibrillation, currently in NSR, on anticoagulation Hyperlipidemia Hospital Course: Patient is 71-year-old male came in with complaints of chest pain found to be in non-ST elevation myocardial infarction patient had history of coronary artery disease and ischemic cardiomyopathy in the past. Patient underwent stenting to left circumflex patient denies any chest pain at this time. Patient had ventricular fibrillation requiring cardioversion yesterday. Patient is on beta- soo losartan aspirin, Brilinta and is also on Eliquis. 08/13/24: Patient seen and examined at bedside today. Patient complains of soreness on his back that he attributes to the compressions. Denies any chest pain. Labs today show WBC 10.9, sodium 136, creatinine 0.76. Cholesterol panel shows triglyceride 37.8, cholesterol 106, HDL 59.6, VLDL 7.56, HDL 38.8. 08/14/24: Patient evaluated today. Vital signs are stable. Labs today show WBC 9.5, sodium 135. Patient seen at bedside today and is feeling good and excited about discharge. Patient will be discharged today and is given a script for aspirin, Brilinta, Eliquis. Consider changing Brilinta to Plavix after 1 month, also adding Farxiga on outpatient basis. LifeVest was discussed with the patient but he declined. Patient is advised to be compliant with medications. Patient is advised to follow-up with PCP in 1-2 days and neuropsychiatrist in 1 week. Vital signs are reviewed and stable General: nontoxic, no distress, appears at stated age Derm: warm, dry, intact Head: atraumatic, normocephalic, symmetric Eyes: EOMI, anicteric sclera Mouth: no lip lesion, mucus membranes moist Cardiovascular: S1 S2 reg, no murmur Lungs: CTA bilateral, no rhonchi, no rales, no accessory muscle use Abdominal: soft, non-tender to palpataion Extremities: No cyanosis, clubbing, or pedal edema. Neuro: Alert, Oriented, Gross neurological examination did not reveal any focal deficits. Psych: well appearing, appropriate affect A total of 30 minutes of time were spent preparing this complex discharge summary. Patient was discharged on 08/14/24 at 1200. Patient Condition at Discharge: Stable Plan - Discharge Summary New Discharge Prescriptions: New Aspirin 81 mg PO DAILY #90 tab Ticagrelor [Brilinta] 90 mg PO BID #60 tab Continue carvediloL [Coreg] 3.125 mg PO BID-W/MEALS 30 Days #60 tab Eplerenone 12.5 mg PO DAILY Ezetimibe [Zetia] 10 mg PO DAILY Rosuvastatin Calcium [Crestor] 5 mg PO DAILY Fluticasone Nasal [place] [Flonase Nasal [place]] 2 spr EA NOSTRIL DAILY Apixaban [Eliquis] 5 mg PO BID 30 Days #60 tab Losartan [Cozaar] 12.5 mg PO DAILY Discontinued Clopidogrel [Plavix] 75 mg PO DAILY 90 Days #90 tab Discharge Medication List Fluticasone Nasal [place] [Flonase Nasal [place]] 2 spr EA NOSTRIL DAILY 04/15/23 [History] Apixaban [Eliquis] 5 mg PO BID 30 Days #60 tab 04/20/23 [Rx] carvediloL [Coreg] 3.125 mg PO BID-W/MEALS 30 Days #60 tab 04/20/23 [Rx] Eplerenone 12.5 mg PO DAILY 08/11/24 [History] Ezetimibe [Zetia] 10 mg PO DAILY 08/11/24 [History] Losartan [Cozaar] 12.5 mg PO DAILY 08/11/24 [History] Rosuvastatin Calcium [Crestor] 5 mg PO DAILY 08/11/24 [History] Aspirin 81 mg PO DAILY #90 tab 08/14/24 [Rx] Ticagrelor [Brilinta] 90 mg PO BID #60 tab 08/14/24 [Rx] Follow up Appointment(s)/Referral(s): Wong Romano DO [STAFF PHYSICIAN] - 1 Week Alex Meza [Primary Care Provider] - 1-2 days Discharge Disposition: HOME SELF-CARE
== END 2024-08-14 14:26 | disposition home or self-care (01) | DRG 321 ==
LOC: EC 16:32 → 2SICU 16:38 → 3SCARD 08-12 15:50
PROVIDERS: ADMIT Hospitalist; ATTEND Hospitalist
PROC: B240ZZ3 Ultrasonography of Single Coronary Artery, Intravascular (ICD-10-PCS; 2024-08-11)
PROC: 3E033RZ Introduction of Antiarrhythmic into Peripheral Vein, Percutaneous Approach (ICD-10-PCS; 2024-08-11)
PROC: 4A023N7 Measurement of Cardiac Sampling and Pressure, Left Heart, Percutaneous Approach (ICD-10-PCS; principal; 2024-08-11 17:05)
PROC: 027135Z Dilation of Coronary Artery, Two Arteries with Two Drug-eluting Intraluminal Devices, Percutaneous Approach (ICD-10-PCS; 2024-08-11 17:05)
PROC: B2111ZZ Fluoroscopy of Multiple Coronary Arteries using Low Osmolar Contrast (ICD-10-PCS; 2024-08-11 17:05)
DX: T82.855A Stenosis of coronary artery stent, initial encounter (principal); I21.4 Non-ST elevation (NSTEMI) myocardial infarction; I49.01 Ventricular fibrillation; I24.9 Acute ischemic heart disease, unspecified; D68.51 Activated protein C resistance; I27.22 Pulmonary hypertension due to left heart disease; Z86.74 Personal history of sudden cardiac arrest; I08.1 Rheumatic disorders of both mitral and tricuspid valves; I48.0 Paroxysmal atrial fibrillation; I25.10 Atherosclerotic heart disease of native coronary artery without angina pectoris; I25.5 Ischemic cardiomyopathy; I44.7 Left bundle-branch block, unspecified; E78.5 Hyperlipidemia, unspecified; R00.1 Bradycardia, unspecified; G47.00 Insomnia, unspecified; R12 Heartburn; Y71.1 Therapeutic (nonsurgical) and rehabilitative cardiovascular devices associated with adverse incidents; Z96.642 Presence of left artificial hip joint; Z79.01 Long term (current) use of anticoagulants; Z79.02 Long term (current) use of antithrombotics/antiplatelets; Z79.899 Other long term (current) drug therapy; I25.2 Old myocardial infarction; Z79.82 Long term (current) use of aspirin; Z87.891 Personal history of nicotine dependence; Z82.49 Family history of ischemic heart disease and other diseases of the circulatory system
CPT/HCPCS: 36415; 71045; 80048; 80053; 80061; 83735; 83880; 84484; 85025; 85027; 85610; 85730; 92978; 93005; 93306; 93458; 96374; 99291

== ENCOUNTER → 2024-09-03 | Outpatient (CLI) | payer MEDICARE ==
--- NOTE | 2024-09-03 14:07 | US ---
EXAMINATION TYPE: US venous doppler duplex LE RT DATE OF EXAM: 09/03/2024 1:52 PM COMPARISON: NONE CLINICAL INDICATION: Male, 73 years old with history of R60.0 EDEMA; edema, Pain TECHNIQUE: The lower extremity deep venous system is examined utilizing real time linear array sonog sheba with graded compression, color doppler sonography, and spectral doppler. SIDE PERFORMED: Right FINDINGS: VESSELS IMAGED: Common Femoral Vein Deep Femoral Vein Greater Saphenous Vein * Femoral Vein Popliteal Vein Small Saphenous Vein * Proximal Calf Veins (* superficial vessels) Right Leg: Negative for DVT, Color Doppler imaging shows patency of the vessels. Spectral waveforms are within normal limits. IMPRESSION: No evidence of deep vein thrombosis of the right lower extremity. [facility], , 09/03/2024 2:05 PM
== END | disposition home or self-care (01) ==
LOC: RADUSWWP 13:31
PROVIDERS: ATTEND Internal Medicine
DX: R60.0 Localized edema (principal)

== ENCOUNTER → 2024-09-10 | Outpatient (CLI) | payer MEDICARE ==
[2024-09-10 10:24] LABS: African American GFR (CKD) >90 (>60 ml/min/1.73 sqM); Blood Urea Nitrogen 14 mg/dL (9-20); Non-African American GFR(CKD) >90 (>60 ml/min/1.73 sqM)
--- NOTE | 2024-09-10 12:20 | CT ---
EXAMINATION TYPE: CT angio head neck DATE OF EXAM: 09/10/2024 11:25 AM COMPARISON: 04/17/2023. CLINICAL INDICATION: Male, 73 years old with history of CVA; PHH, Left eye ischemic optic neuropathy. TECHNIQUE: CT of the head performed with contrast followed by CT angiogram of the head. CT angiogram of the neck performed. Axially acquired helical CT angiogram of the head and neck was obtained with c ontrast. Axial images are supplemented with 3D reconstructions and MIP images which were post-proces sed at an independent workstation. NASCET criteria used. Contrast used:65ml mL of Isovue 370 without and with IV Contrast, Oral contrast used: None. CT DLP: 1390.3 mGycm, Automated exposure control for dose reduction was used. FINDINGS: CT head: Brain: Extra-axial spaces: No abnormal extra-axial fluid collections. Ventricular system: Dilatation in proportion to cerebral atrophy. Cerebral parenchyma: Cerebral atrophy. No acute intraparenchymal hemorrhage or mass effect. The mares -white junction is well differentiated. Cerebellum: Unremarkable. Mass effect: No evidence of midline shift. Intracranial vasculature: unremarkable Soft tissues: Normal. Calvarium/osseous structures: No depressed skull fracture. Possible calcified meningioma measuring 7 mm near the left frontal skull apex. Paranasal sinuses and mastoid air cells: Mild scattered paranasal sinus disease. Visualized orbits: Orbital contents are intact. CTA HEAD: No evidence of acute intracranial hemorrhage, mass effect, or midline shift. The ventricles, sulci, a nd cisterns are unremarkable. The ophthalmic arteries are poorly visualized bilaterally. Vertebral arteries: The vertebral arteries are patent. Vertebral artery dominance: Codominant Basilar artery: The basilar artery is intact. The basilar artery bifurcation is normal. Internal Carotid arteries: The cervical, petrous, cavernous and supraclinoid segments are normal. TIN: Patent with no evidence of aneurysm. ACOM: Present without evidence of aneurysm. MCA: Patent with no evidence of aneurysm. RETAIL PRODUCT ADVISOR: Patent with no evidence of aneurysm. PCOM: Hypoplastic bilaterally. Dural sinuses: Patent. CTA NECK: Right Carotid System: The common carotid artery and external carotid artery are patent. The carotid bifurcation demonstrate s no evidence of hemodynamically significant stenosis. The remaining portions of the internal carotid artery demonstrate normal size without significant narrowing. Left Carotid System: The common carotid artery and external carotid artery are patent. The carotid bifurcation demonstrate s no evidence of hemodynamically significant stenosis. The remaining portions of the internal carotid artery demonstrate normal size without significant narrowing. Vertebral arteries are patent without evidence hemodynamically significant stenosis. Diminutive appea raimundo of the right vertebral artery extending from its origin to the level of C3. This is possibly oc cluded There is a three-vessel aortic arch. The origins of the great vessels are patent. No evidence of hemo dynamically significant stenosis. IMPRESSION: 1. Diminutive appearance of the right vertebral artery with reconstitution at level C2 possibly back filling if the artery is occluded. Consider carotid Doppler for attempt at confirmation. 2. No evidence of dissection of the cervical internal carotid arteries. 3. No any evidence of significant stenosis at the carotid bifurcations. 4. No evidence of intracranial high-grade stenosis or intracranial aneurysm. [facility], , 09/10/2024 12:18 PM
== END | disposition home or self-care (01) ==
LOC: RADCTMAIN 09:37
PROVIDERS: ATTEND Psychiatry & Neurology Neurology
DX: I67.9 Cerebrovascular disease, unspecified (principal); H47.012 Ischemic optic neuropathy, left eye; G31.89 Other specified degenerative diseases of nervous system; Z86.73 Personal history of transient ischemic attack (TIA), and cerebral infarction without residual deficits
CPT/HCPCS: 82565; 84520; 70496; 70498; 36415; Q9967

== ENCOUNTER 2025-01-14 14:49 | Day surgery (SDC) | payer MEDICARE ==
[2025-01-14 15:39] VITALS: RESP 16
[2025-01-14] MEDS: IV FLUID CONTINUATION 1,000 ML IV ONE (15:39)
[2025-01-14 15:40] LABS: Basophils # (A) 0.03 10*3/uL (0.00-0.10); Basophils % (A) 0.6 %; Eosinophils # (A) 0.07 10*3/uL (0.04-0.35); Eosinophils % (A) 1.3 %; HGB 13.6 g/dL (13.0-17.0); Lymphocytes # (A) 1.16 10*3/uL (0.90-5.00); Lymphocytes % (A) 21.5 %; MCH 32.7 pg (27.0-32.0); MCV 96.2 fL (80.0-97.0); Mean Platelet Volume 10.3 fL (9.5-12.2); Monocytes # (A) 0.61 10*3/uL (0.20-1.00); Monocytes % (A) 11.3 %; Neutrophils # (A) 3.51 10*3/uL (1.80-7.70); Neutrophils % (A) 65.1 %; Platelet Count 207 10*3/uL (140-440); RBC 4.16 10*6/uL (4.40-5.60); RDW 12.3 % (11.5-14.5); WBC 5.39 10*3/uL (4.50-10.00)
[2025-01-14 15:49] LABS: African American GFR (CKD) >90 (>60 ml/min/1.73 sqM); Anion Gap 9 mmol/L; Blood Urea Nitrogen 16 mg/dL (9-20); Calcium 8.8 mg/dL (8.4-10.2); Carbon Dioxide 25 mmol/L (22-30); Chloride 104 mmol/L (98-107); Glucose 90 mg/dL (74-99); Non-African American GFR(CKD) >90 (>60 ml/min/1.73 sqM); Potassium 4.4 mmol/L (3.5-5.1); Sodium 138 mmol/L (137-145)
[2025-01-14] MEDS ORDERED: fentaNYL (PF) 50 MCG/ML 2 ML AMP ONE (17:05)
[2025-01-14] MEDS ORDERED: MIDAZOLAM 2 MG/2 ML VIAL ONE (17:05)
[2025-01-14] MEDS: IOPAMIDOL-370 100ML BTL INJ ONE (17:21)
[2025-01-14] MEDS: ceFAZolin 2 GM in DEXTROSE 5% IN WATER 50 ML IVPB PRN (17:44)
[2025-01-14] MEDS: ROPIVACAINE 5 MG/ML 30 ML VIAL MISCELLANE ONE (17:49)
[2025-01-14] MEDS: LIDOCAINE 1% INJ 10MG/ML (20 ML MDV) SQ ONE (17:49)
[2025-01-14] MEDS: ceFAZolin 1 GM in SODIUM CHLORIDE 0.9% IRRIG BTL 250 ML IRRIGATION PRN (17:55)
--- NOTE | 2025-01-14 20:08 | P.EPPROC ---
- EP Procedure Note Electrophysiology Procedure Note: Diagnosis Cardiomyopathy, chronic, ischemic in nature Congestive heart failure [place] [employer] class class II Wide QRS with a left bundle branch block pattern QRS width remeasured at 150 ms, ID interval of 170 ms On guide line directed medical treatment for greater than 3 months without improvement in LV systolic function Left ventricular ejection fraction 31% Procedure: Biventricular ICD implantation for management of risk of sudden cardiac and congestive heart failure Plan stop carvedilol Start metoprolol succinate to prolong the AV delay to allow for preferential left bundle pacing Result: Successful biventricular ICD implantation, Atrial lead: Medtronic 58 cm model #5076. P waves 3.4 mV pacing impedance 437 ohms and pacing threshold 0.5 V at 0.4 ms RV ICD lead: Medtronic model number 6935M, 62 cm in length, R waves 11 mV, pac ing impedance 475 ohms, high-voltage impedance 59 ohms and pacing threshold 0.7 V at 0.4 ms Left ventricular lead: Initially, coronary sinus cannulation was attempted but this was very difficult and therefore we switched to left bundle pacing Conduction system pacing lead: Successful left bundle pacing with unipolar threshold 0.5 V at 0.4 ms, pacing impedance 494 ohms QR paced pattern at low thresholds with rSR' paced pattern at higher thresholds. Activation time in the unipolar mode 78-88 ms in lead V6 and 91 ms in lead I Distal tip pacing showed activation time of 91 ms in lead I and 80 ms in lead V6 Proximal pole pacing showed activation time of 110 ms in lead I and 106 ms in lead V6 Therefore, in lead V6 there is a 26 ms reduction in activation times as compared to a more septal pacing Procedure details: Patient was brought to the EP lab in a fasting state. Written informed consent was obtained prior to the procedure. Options, pros and cons, benefits and risks and complications discussed with patient in detail prior to the procedure (shared decision making) previously. Importance of continuing medical treatment emphasized previously. Alternatives discussed previously. Left upper extremity venogram performed. 15 mL IV dye injected in the left arm. Patent axillary/subclavian vein The left pectoral area was prepped and draped as a protocol. IV antibiotics administered 1% lidocaine was used for local anesthesia. A 4 cm incision was made parallel to the deltopectoral groove, about 1.5 cm medial to it. The incision was carried down to the level of the pectoralis muscle and the subfascial pocket was made. Hemostasis was assured. The axillary vein access was obtained. Appropriately sized into to see sheaths were placed. ICD lead implanted in the right ventricle and screwed in. ICD lead tested for threshold, sensing, impedances and tested with high output pacing for diaphragmatic stimulation. Negative diaphragmatic stimulation Atrial lead placed in the right atrial appendage and tested for threshold, sensing, impedance, and tested with high output pacing. Phrenic nerve stimulation negative Conduction system pacing lead placement left bundle pacing, unipolar threshold 0.5 V at 0.4 ms Leads secured to the underlying pectoral muscle after removing sheaths . Pocket irrigated with antibiotic solution. Antibiotic pouch placed Leads connected to the biventricular ICD generator. Wound closed in 3 layers and dressed per protocol Biventricular ICD interrogated and programmed. Appropriate pacing parameters, antitachycardia therapies with antitachycardia pacing cardioversion defibrillations programmed. AV delay and biventricular pacing parameters programmed to achieve optimal physiologic pacing Patient tolerated the procedure well without any acute complications. See scanned device report in EMR for lead details
[2025-01-14] MEDS ORDERED: APIXABAN 5 MG TAB PO SCH (21:00)
[2025-01-14] MEDS: METOPROLOL SUCCINATE (ER) 50 MG TAB.ER.24H PO SCH (21:34)
[2025-01-14] MEDS: ACETAMINOPHEN TAB 325 MG TAB PO PRN (21:39)
[2025-01-14] MEDS: ACETAMINOPHEN IV (For NPO) 1,000 MG in EMPTY BAG 1 BAG IVPB ONE (23:11)
[2025-01-14] MEDS: ceFAZolin 2 GM in DEXTROSE 5% IN WATER 50 ML IVPB SCH (23:25)
[2025-01-14] MEDS: SODIUM CHLORIDE 0.9% 1,000 ML IV SCH ×2 (23:40→23:41)
--- NOTE | 2025-01-15 07:44 | XR ---
EXAMINATION TYPE: XR chest 2V DATE OF EXAM: 01/15/2025 7:37 AM COMPARISON: 08/11/2024 CLINICAL INDICATION: Male, 74 years old with history of Lead placement check, TECHNIQUE: XR chest 2V view(s) obtained. FINDINGS: The heart size is mildly prominent. The pulmonary vasculature is mildly prominent. No suspicious consolidations or infiltrates. Pacemaker overlies the left chest IMPRESSION: 1. There is mild prominence of the heart and pulmonary vasculature. No overt congestive heart failure is not identified. [facility], , 01/15/2025 7:42 AM
[2025-01-15] MEDS: carvediloL 3.125 MG TAB PO SCH (07:46)
[2025-01-15] MEDS: SPIRONOLACTONE 25 MG TAB PO SCH (08:41)
[2025-01-15] MEDS: EZETIMIBE 10 MG TAB PO SCH (08:42)
[2025-01-15] MEDS: ATORVASTATIN 10 MG TAB PO SCH (08:42)
[2025-01-15] MEDS: ASPIRIN 81 MG PO SCH (08:42)
[2025-01-15] MEDS: LOSARTAN 25 MG TAB PO SCH (08:43)
[2025-01-15 08:46] VITALS: BP 121/68; PULSE 69; TEMP 97.8
[2025-01-15] MEDS: FLUTICASONE NASAL 50MCG/SPRAY 16GM BTL EA NOSTRIL SCH (08:52)
[2025-01-15] MEDS: TICAGRELOR 90 MG TAB PO SCH (09:19)
--- NOTE | 2025-01-15 11:56 | P.DS ---
Providers Attending physician: Serafin Lopez Primary care physician: [facility] Course: Is doing well. No chest discomfort dizziness lightheadedness No hematoma Heart sounds are normal and regular Blood pressure 129/66 mmHg pulse rate in the 60s to 70s afebrile Twelve-lead EKG shows left bundle pacing with rapid activation of less than 80 ms in lead V6 and in lead I Chest x-ray within normal limits Device interrogation within normal limits Impression Ischemic cardiomyopathy Left bundle branch block pattern, QRS width 150 ms, VA interval 170 ms at baseline on carvedilol 3.125 mg twice daily Status post BiV ICD with left bundle pacing lead Rapid activation of LV on twelve-lead EKG Plan Hold Eliquis today and restart tomorrow morning Pressure dressing for 1 day and patient's will take it off on Stop carvedilol and start metoprolol succinate 50 mg p.o. daily to prolong the AV interval and allow for preferential left bundle pacing Consider increasing the dose of metoprolol succinate to 100 mg p.o. daily as an outpatient Continue all other heart failure medications Device clinic follow-up in 1 week Plan - Discharge Summary New Discharge Prescriptions: New RX: Metoprolol Succinate (ER) [Toprol XL] 50 mg PO DAILY #90 tab Discontinued RX: carvediloL [Coreg] 3.125 mg PO BID-W/MEALS 30 Days #60 tab No Action RX: Eplerenone 12.5 mg PO DAILY RX: Ezetimibe [Zetia] 10 mg PO DAILY RX: Rosuvastatin Calcium [Crestor] 5 mg PO DAILY RX: Aspirin 81 mg PO DAILY #90 tab RX: Fluticasone Nasal [place] [Flonase Nasal [place]] 2 spr EA NOSTRIL DAILY RX: Apixaban [Eliquis] 5 mg PO BID 30 Days #60 tab RX: Losartan [Cozaar] 12.5 mg PO DAILY RX: Ticagrelor [Brilinta] 90 mg PO BID #60 tab Discharge Medication List RX: Fluticasone Nasal [place] [Flonase Nasal [place]] 2 spr EA NOSTRIL DAILY 04/15/23 [History] RX: Apixaban [Eliquis] 5 mg PO BID 30 Days #60 tab 04/20/23 [Rx] RX: Eplerenone 12.5 mg PO DAILY 08/11/24 [History] RX: Ezetimibe [Zetia] 10 mg PO DAILY 08/11/24 [History] RX: Losartan [Cozaar] 12.5 mg PO DAILY 08/11/24 [History] RX: Rosuvastatin Calcium [Crestor] 5 mg PO DAILY 08/11/24 [History] RX: Aspirin 81 mg PO DAILY #90 tab 08/14/24 [Rx] RX: Ticagrelor [Brilinta] 90 mg PO BID #60 tab 08/14/24 [Rx] RX: Metoprolol Succinate (ER) [Toprol XL] 50 mg PO DAILY #90 tab 01/14/25 [Rx] Follow up Appointment(s)/Referral(s): Serafin Lopez MD [STAFF PHYSICIAN] - 01/23/25 2:30 pm (FOLLOW UP APPOINTMENT MADE WITH DEVICE CLINIC. ) Patient Instructions/Handouts: Implantable Cardioverter Defibrillator (DC) Activity/Diet/Wound Care/Special Instructions: PATIENT EDUCATION MATERIAL Instructions following a heart rhythm device implant. 1. Keep dressing DRY for 5 DAYS. You may cover the area with Saran or Cling Wrap, prior to a shower. 2. The dressing will be removed in the Device Clinic at [facility]. Absorbable sutures were used to close the wound. 3. Avoid raising the left arm above the shoulder level. 4 week restriction 4. Avoid arm movements, like backscratching, rubbing the head, or pulling on a cord. 4 weeks restriction 5. Gentle range of motion movements of the shoulder, closest to the incision should be performed to avoid a frozen shoulder. (Pendulum exercises of the shoulder) 6. The opposite arm may be used freely. 7. Avoid driving for 7 days. 8. Avoid activities such as golfing, swimming, weed whacking, lifting more than 10 pounds weight, bowling, gymnastics and weight training/lifting. (6 weeks restriction) 9. Activities such as wood chopping with an axe, pull-ups in the gymnasium, power lifting, arc-welding, being close to home induction cooktops will always be a problem. 10. Arm sling is only a reminder not to raise the arm above the head. You do not need to keep the arm completely immobilized. Your free to move the arm and use it and for normal activities. In case of any problems, please call [facility] [place], @ [phone], Attention: Device Clinic Device clinic follow-up in 5 days Follow-up with primary maintenance shop technician in 2-3 months Discharge Disposition: HOME SELF-CARE
== END 2025-01-15 11:32 | disposition home or self-care (01) ==
LOC: CATHEP 14:49 → 6NMEDSUR 19:39 → CATHEP 01-15 11:32
PROVIDERS: ATTEND Internal Medicine Clinical Cardiac Electrophysiology
DX: I25.10 Atherosclerotic heart disease of native coronary artery without angina pectoris (principal); I44.7 Left bundle-branch block, unspecified; I25.5 Ischemic cardiomyopathy; I50.21 Acute systolic (congestive) heart failure; E78.5 Hyperlipidemia, unspecified; Z45.02 Encounter for adjustment and management of automatic implantable cardiac defibrillator; Z79.82 Long term (current) use of aspirin; Z79.01 Long term (current) use of anticoagulants; Z79.02 Long term (current) use of antithrombotics/antiplatelets; Z79.899 Other long term (current) drug therapy
CPT/HCPCS: 33249; 80048; 84443; 85025; 71046; C1769 ×3; C1892 ×2; C1730; C1887; C1898; C1895; C1882; J0690 ×2; J2003; J2795; Q9967; 93005

== ENCOUNTER 2025-01-18 09:47 | Observation (INO) | payer MEDICARE ==
--- NOTE | 2025-01-18 10:51 | XR ---
EXAMINATION TYPE: XR chest 2V DATE OF EXAM: 01/18/2025 10:15 AM COMPARISON: 01/15/2025 CLINICAL INDICATION: Male, 74 years old with history of Chest Pain, TECHNIQUE: XR chest 2V view(s) obtained. FINDINGS: The heart size is enlarged. Pacemaker overlies left chest. The pulmonary vasculature is normal. The lungs are clear. IMPRESSION: 1. Cardiomegaly [facility], , 01/18/2025 10:49 AM
[2025-01-18 10:53] LABS: Basophils # (A) 0.04 10*3/uL (0.00-0.10); Basophils % (A) 0.4 %; Eosinophils # (A) 0.02 10*3/uL (0.04-0.35); Eosinophils % (A) 0.2 %; HCT 40.3 % (39.6-50.0); HGB 13.5 g/dL (13.0-17.0); Lymphocytes # (A) 0.41 10*3/uL (0.90-5.00); Lymphocytes % (A) 3.9 %; MCH 32.5 pg (27.0-32.0); MCHC 33.5 g/dL (32.0-37.0); MCV 96.9 fL (80.0-97.0); Mean Platelet Volume 10.1 fL (9.5-12.2); Monocytes # (A) 0.83 10*3/uL (0.20-1.00); Monocytes % (A) 7.8 %; Neutrophils # (A) 9.27 10*3/uL (1.80-7.70); Neutrophils % (A) 87.4 %; Platelet Count 174 10*3/uL (140-440); RBC 4.16 10*6/uL (4.40-5.60); RDW 12.6 % (11.5-14.5)
--- NOTE | 2025-01-18 11:01 | ED ---
Chest Pain HPI - General Source: patient, RN notes reviewed Mode of arrival: ambulatory Limitations: no limitations - History of Present Illness MD Complaint: chest pain <Ramya Crawford - Last Filed: 01/18/25 10:59> <Arabella Hoff - Last Filed: 01/18/25 16:51> - General Chief Complaint: Chest Pain Stated Complaint: CASTRO Time Seen by Provider: 01/18/25 10:50 - History of Present Illness Initial Comments: Quick Note: This is a 74-year-old male who presents to the emergency department for chest pain. Patient had an ICD placed on 01/14. States that he started developing chest pain shortly afterwards. The pain has since gotten much worse. Pain is described as sharp and worse with movement and inhalation. States that it almost feels like cracked ribs. He does have a history of multiple cardiac issues, however states that this feels different. (Ramya Crawford) 74-year-old male with extensive cardiac history on Eliquis and Brilinta with 7 stents presenting to the emergency department with complaints of chest pain that has been worsening over the past 3 days. States that today the pain is rated as a 10 out of 10 located in the front of his chest radiates across his chest and up into his shoulders saying that he is unable to take a deep breath due to the pain. Patient recently had ICD placed on 01/14/[address] Lopez. states he began to experience pain of the chest after the procedure however it has continued to progress and worsen. reports that this pain feels different from when he has had a heart attack in the past. He denies palpitations, cough, fevers, chills, peripheral edema. (Arabella Hoff) - Related Data Home Medications Medication Instructions Recorded Confirmed Eplerenone 12.5 mg PO W/BRKFST 08/11/24 01/18/25 Ezetimibe [Zetia] 10 mg PO W/SUPPER 08/11/24 01/18/25 Losartan [Cozaar] 12.5 mg PO W/BRKFST 08/11/24 01/18/25 Rosuvastatin Calcium [Crestor] 5 mg PO W/BRKFST 08/11/24 01/18/25 Apixaban [Eliquis] 5 mg PO BID-W/MEALS 01/18/25 01/18/25 Aspirin 81 mg PO W/BRKFST 01/18/25 01/18/25 Cyanocobalamin (Vitamin B-12) 1,000 mcg PO W/BRKFST 01/18/25 01/18/25 [Vitamin B-12] Metoprolol Succinate (ER) [Toprol 50 mg PO W/BRKFST 01/18/25 01/18/25 XL] Ticagrelor [Brilinta] 90 mg PO BID-W/MEALS 01/18/25 01/18/25 Ubidecarenone [Coenzyme Q-10] 100 mg PO W/BRKFST 01/18/25 01/18/25 Allergies Allergy/AdvReac Type Severity Reaction Status Date / Time No Known Allergies Allergy Verified 01/18/25 16:22 Review of Systems ROS Other: All systems not noted in ROS Statement are negative. <Ramya Crawford - Last Filed: 01/18/25 10:59> ROS Other: All systems not noted in ROS Statement are negative. <Arabella Hoff - Last Filed: 01/18/25 16:51> ROS Statement: Those systems with pertinent positive or pertinent negative responses have been documented in the HPI. 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 x7 stents. Last Myocardial Infarction Date:: 08/11/2024 History of Any Multi-Drug Resistant Organisms: None Reported Past Surgical History: Heart Catheterization, Heart Catheterization With Stent Additional Past Surgical History / Comment(s): left hip replacement 2020, hernia repair 2013, colonoscopy, right ankle tendon repair, Past Anesthesia/Blood Transfusion Reactions: No Reported Reaction Date of Last Stent Placement:: 08/11/2024 Past Psychological History: No Psychological Hx Reported Smoking Status: Former smoker Past Alcohol Use History: None Reported, Occasional Past Drug Use History: None Reported - Past Family History Mother Family Medical History: Pulmonary Embolus Father Family Medical History: Coronary Artery Disease (CAD) <Ramya Crawford - Last Filed: 01/18/25 10:59> General Exam Limitations: no limitations <Ramya Crawford - Last Filed: 01/18/25 10:59> General appearance: alert, in no apparent distress ENT exam: Present: normal exam, mucous membranes moist Neck exam: Present: normal inspection. Absent: tenderness, meningismus, lymphadenopathy Respiratory exam: Present: normal lung sounds bilaterally, chest wall tenderness (anterior left with ecchymosis- no erythema or warmth). Absent: respiratory distress, wheezes, rales, rhonchi, stridor Cardiovascular Exam: Present: regular rate, normal rhythm, normal heart sounds. Absent: systolic murmur, diastolic murmur, rubs, gallop, clicks GI/Abdominal exam: Present: soft, normal bowel sounds. Absent: distended, tenderness, guarding, rebound, rigid Extremities exam: Present: normal inspection, full ROM, normal capillary refill. Absent: tenderness, pedal edema, joint swelling, calf tenderness Back exam: Present: normal inspection <Arabella Hoff - Last Filed: 01/18/25 16:51> - General Exam Comments Initial Comments: Visual Physical Exam Vital signs reviewed General: Well-appearing, nontoxic, no acute distress. Head: Normocephalic, atraumatic Eyes: PERRLA, EOMI ENT: Airway patent Chest: Nonlabored breathing Skin: No visual rash, normal skin tone Neuro: Alert and oriented 3 Musculoskeletal: No gross abnormalities (Ramya Crawford) Course Vital Signs 01/18/25 01/18/25 09:48 11:50 Temperature 99.2 F Pulse Rate 88 98 Respiratory 24 18 Rate Blood Pressure 148/75 146/87 O2 Sat by Pulse 99 99 Oximetry Chest Pain MDM <Ramya Crawford - Last Filed: 01/18/25 10:59> <Arabella Hoff - Last Filed: 01/18/25 16:51> - MDM I performed the QuickNote portion of this chart. Signed Ramya Crawford PA-C. (Ramya Crawford) Was pt. sent in by a medical professional or institution (NICOLE Dodd, MECHANICAL RESEARCH ENGINEER, urgent care, hospital, or penitentiary...) When possible be specific @ -No Did you speak to anyone other than the patient for history (EMS, parent, family, police, friend...)? What history was obtained from this source @ -No Did you review nursing and triage notes (agree or disagree)? Why? @ -I reviewed and agree with nursing and triage notes Were old charts reviewed (outside hosp., previous admission, EMS record, old EKG, old radiological studies, urgent care reports/EKG's, penitentiary records)? Report findings @ -Reviewed procedure note from 01/14/2025 where patient underwent biventricular ICD placement. Differential Diagnosis (chest pain, altered mental status, abdominal pain women, abdominal pain men, vaginal bleeding, weakness, fever, dyspnea, syncope, headache, dizziness, GI bleed, back pain, seizure, CVA, palpatations, mental health, musculoskeletal)? @ -Differential Chest Pain: Stable Angina, Unstable Angina, STEMI, NSTEMI Aortic Dissection, Pneumothorax, Musculoskeletal, Esophageal Spasm GERD, Cholecystitis, Pancreatitis, Zoster, this is not meant to be an all-inclusive list. EKG interpreted by me (3pts min.). @ -EKG completed at 956 reveals a sinus rhythm with a ventricular rate of 92, CT interval 178, QRS 94, QT 331, QTc 381. X-rays interpreted by me (1pt min.). @ -Chest x-ray reveals cardiomegaly with no signs of focal consolidation. CT interpreted by me (1pt min.). @ -CTA of the chest without contrast reveals no evidence of PE, cardiomegaly, gas inflammation around the left chest wall pacemaker possible for infection U/S interpreted by me (1pt. min.). @ -None done What testing was considered but not performed or refused? (CT, X-rays, U/S, labs)? Why? @ -None What meds were considered but not given or refused? Why? @ -None Did you discuss the management of the patient with other professionals (professionals i.e. , PA, MECHANICAL RESEARCH ENGINEER, lab, RT, psych nurse, community mental health social worker, public affairs specialist, teacher, forestry technical officer, top case assembler)? Give summary @ -Spoke with [facility] for admission. Was smoking cessation discussed for >3mins.? @ -No Was critical care preformed (if so, how long)? @ -No Were there social determinants of health that impacted care today? How? (Homelessness, low income, unemployed, alcoholism, drug addiction, transportation, low edu. Level, literacy, decrease access to med. care, senior living, rehab)? @ -No Was there de-escalation of care discussed even if they declined (Discuss DNR or withdrawal of care, Hospice)? DNR status @ -No What co-morbidities impacted this encounter? (DM, HTN, Smoking, COPD, CAD, Cancer, CVA, ARF, Chemo, Hep., AIDS, mental health diagnosis, sleep apnea, morbid obesity)? @ -None Was patient admitted / discharged? Hospital course, mention meds given and route, prescriptions, significant lab abnormalities, going to OR and other pertinent info. @ -Admitted. 74-year-old male presenting to emergency room with complaints of chest pain. Patient is originally evaluated emergency department waiting was a quick note for laboratory testing is ordered in addition to chest x-ray. Patient's initial vitals are stable EKG is in a sinus paced rhythm. Patient has ecchymosis over the left anterior chest that is reproduced palpation however states that pain also is deeper in his chest rather than his rib reproducible. He is provided with morphine for pain control. Patient labs reveal an elevated D-dimer at 0.96 and patient is sent for CT of the chest. Patient has a mildly elevated troponin at 0. 052 however believe that this is likely secondary to recent ICD placement. CT of the chest reveals no evidence for PE, inflammation surrounding recent ICD placement. Patient will be admitted to internal medicine with cardiology on consult for observation. As needed pain medication ordered. Case discussed with my attending Dr. ames Undiagnosed new problem with uncertain prognosis? @ -No Drug Therapy requiring intensive monitoring for toxicity (Heparin, Nitro, Insulin, Cardizem)? @ -No Were any procedures done? @ -No Diagnosis/symptom? @ -chest pain, Acute, or Chronic, or Acute on Chronic? @ -acute Uncomplicated (without systemic symptoms) or Complicated (systemic symptoms)? @ -complicated Side effects of treatment? @ -No Exacerbation, Progression, or Severe Exacerbation? @ -No Poses a threat to life or bodily function? How? (Chest pain, [place], [place], pneumonia, PE, COPD, DKA, ARF, appy, cholecystitis, CVA, Diverticulitis, Homicidal, Suicidal, threat to staff... and all critical care pts) @ -No (Arabella Hoff) Disposition <Ramya Crawford - Last Filed: 01/18/25 10:59> Decision to Admit Reason: Admit from EC Decision Date: 01/18/25 Decision Time: 15:53 <Arabella Hoff - Last Filed: 01/18/25 16:51> Clinical Impression: Chest pain Disposition: ADMITTED IP TO THIS HOSP Condition: Stable
[2025-01-18 11:13] LABS: INR 1.1 (<1.2); Partial Thromboplastin Time 23.1 sec (22.0-30.0); Prothrombin Time 11.9 sec (10.0-12.5)
[2025-01-18 11:24] LABS: ALT 60 U/L (4-49); AST 89 U/L (17-59); African American GFR (CKD) >90 (>60 ml/min/1.73 sqM); Albumin 4.4 g/dL (3.5-5.0); Alkaline Phosphatase 95 U/L (38-126); Anion Gap 14 mmol/L; Blood Urea Nitrogen 14 mg/dL (9-20); Calcium 9.2 mg/dL (8.4-10.2); Carbon Dioxide 21 mmol/L (22-30); Chloride 105 mmol/L (98-107); Glucose 125 mg/dL (74-99); Magnesium 1.9 mg/dL (1.6-2.3); Non-African American GFR(CKD) >90 (>60 ml/min/1.73 sqM); Sodium 140 mmol/L (137-145); Total Bilirubin 0.9 mg/dL (0.2-1.3); Total Protein 7.6 g/dL (6.3-8.2)
[2025-01-18 11:32] LABS: NT-Pro-B-Type Natriuretic Pept 2460 pg/mL
[2025-01-18] MEDS: MORPHINE SULFATE 4 MG/ML SYRINGE IVP STA ×2 (11:33→13:03)
[2025-01-18] MEDS: ONDANSETRON 4 MG/2 ML VIAL IVP STA (11:53)
--- NOTE | 2025-01-18 12:27 | CT ---
EXAMINATION TYPE: CT chest angio for PE DATE OF EXAM: 01/18/2025 11:54 AM COMPARISON: 09/23/2023 CLINICAL INDICATION: Male, 74 years old with history of plueritic pain, elevated dimer; Pleuritic ana luisa n, Elevated d-dimer TECHNIQUE/CONTRAST: CTA scan of the thorax is performed without and with IV Contrast, patient injected with 100 ml mL of Isovue 300, MIP images are created and reviewed these are created on a separate workstation.. CT DLP: 244.7 mGycm, Automated exposure control for dose reduction was used. FINDINGS: Lungs/Pleura: No evidence of focal consolidation, pleural effusion or pneumothorax. Interlobular sept al thickening. The lung volumes. Airway: Large airways are patent. Heart: Cardiomegaly is demonstrated. Coronary artery atherosclerotic changes and stents present. Car diac conduction leads remain in the right ventricle and right atrium. Vasculature: There is no evidence for a filling defect within the pulmonary vasculature to suggest ac [place] pulmonary embolism. The pulmonary artery is of normal size. Mediastinum: No gross evidence of adenopathy. Musculoskeletal: Compression deformity to the superior endplate of T5 and T9 with up to 25% height lo ss. Soft Tissues/lymph nodes: Left chest wall cardiac conduction device present. Diffuse subcutaneous gas present around the pacemaker with inflammation and probable blood products extending more inferiorly . Lower neck: No significant findings. Upper Abdomen: No significant findings. IMPRESSION: 1. No evidence of pulmonary embolism. 2. Gas and inflammation around the left chest wall pacemaker. Correlate with recent surgery. Otherwi se findings may represent infection around the pacemaker. 3. Cardiomegaly. Correlate with pulmonary vascular congestion correlate for congestive heart failure . 4. T5 and T9 compression vertebral body compression forms a 25% height loss. Consider further evalua tion with MRI.. [facility], , 01/18/2025 12:25 PM
[2025-01-18] MEDS: ACETAMINOPHEN TAB 500 MG TAB PO STA (14:20)
[2025-01-18] MEDS ORDERED: MORPHINE SULFATE 4 MG/ML SYRINGE IV PRN (15:51)
[2025-01-18] MEDS ORDERED: NALOXONE 0.4 MG/ML 1 ML VIAL IV PRN (15:51)
[2025-01-18] MEDS ORDERED: ONDANSETRON 4 MG/2 ML VIAL IVP PRN (15:51)
[2025-01-18] MEDS: ACETAMINOPHEN TAB 325 MG TAB PO PRN (20:38)
[2025-01-19] MEDS ORDERED: Acetaminophen-Codeine 300-30mg TAB PO PRN (07:57)
[2025-01-19] MEDS: TICAGRELOR 90 MG TAB PO SCH (09:19)
[2025-01-19] MEDS: METOPROLOL SUCCINATE (ER) 50 MG TAB.ER.24H PO SCH (09:19)
[2025-01-19] MEDS: ATORVASTATIN 10 MG TAB PO SCH (09:19)
[2025-01-19] MEDS: APIXABAN 5 MG TAB PO SCH (09:20)
[2025-01-19] MEDS: ASPIRIN 81 MG PO SCH (09:20)
[2025-01-19] MEDS: LOSARTAN 25 MG TAB PO SCH (09:22)
[2025-01-19 09:25] LABS: Basophils # (A) 0.02 10*3/uL (0.00-0.10); Basophils % (A) 0.2 %; Eosinophils # (A) 0.02 10*3/uL (0.04-0.35); Eosinophils % (A) 0.2 %; HCT 38.3 % (39.6-50.0); HGB 12.7 g/dL (13.0-17.0); Lymphocytes # (A) 0.46 10*3/uL (0.90-5.00); Lymphocytes % (A) 5.3 %; MCH 32.5 pg (27.0-32.0); MCHC 33.2 g/dL (32.0-37.0); Mean Platelet Volume 10.1 fL (9.5-12.2); Monocytes # (A) 0.78 10*3/uL (0.20-1.00); Monocytes % (A) 8.9 %; Neutrophils # (A) 7.42 10*3/uL (1.80-7.70); Neutrophils % (A) 85.1 %; Platelet Count 152 10*3/uL (140-440); RBC 3.91 10*6/uL (4.40-5.60); RDW 12.9 % (11.5-14.5); WBC 8.73 10*3/uL (4.50-10.00)
[2025-01-19 09:42] LABS: ALT 58 U/L (4-49); AST 76 U/L (17-59); African American GFR (CKD) >90 (>60 ml/min/1.73 sqM); Albumin 4.1 g/dL (3.5-5.0); Alkaline Phosphatase 76 U/L (38-126); Anion Gap 10 mmol/L; Blood Urea Nitrogen 16 mg/dL (9-20); Carbon Dioxide 26 mmol/L (22-30); Chloride 99 mmol/L (98-107); Glucose 170 mg/dL (74-99); Non-African American GFR(CKD) >90 (>60 ml/min/1.73 sqM); Potassium 4.3 mmol/L (3.5-5.1); Sodium 135 mmol/L (137-145); Total Protein 7.2 g/dL (6.3-8.2)
--- NOTE | 2025-01-19 09:55 | P.CRDCN ---
History of Present Illness History of present illness: HISTORY OF PRESENT ILLNESS: This is a 74-year-old male with a past medical history significant for coronary artery disease, paroxysmal atrial fibrillation, ischemic cardiomyopathy, conges tive heart failure, and hyperlipidemia with statin myalgias. Patient follows in the office with Dr. Romano. We have been asked to see the patient in consultation for chest pain. Patient examined at the bedside in the emergency room. Patient presented to the hospital for chief complaint of chest d iscomfort. He states the pain is worse when he takes a deep breath. He has been receiving Tylenol which he states has been helping the pain. It is noted that the patient underwent BiV ICD implantation on 01/14/[address] Lopez. DIAGNOSTICS: - EKG reveals paced rhythm - Chest xray cardiomegaly -Chest CTA: Negative for pulmonary embolism. Gas and inflammation around chest wall pacemaker. Cardiomegaly. Correlate for pulmonary vascular congestion. - Laboratory data: WBC 8.73. Hemoglobin 12.7. Platelet count 152. D-dimer 0.96. Sodium 135. Potassium 4.3. BUN 16. Creatinine 0.68. proBNP 2460. Troponin 0.052. 0.056. 0.052. - Current home cardiac medications include Brilinta 90 mg twice a day, Crestor 5 mg with breakfast, losartan 12.5 mg daily, Zetia 10 mg daily, aspirin 81 mg daily, Eliquis 5 mg twice a day, metoprolol succinate 50 mg daily, and eplerenone 12.5 mg daily. - Most recent echocardiogram obtained in August 2024 revealed ejection fraction 25 to 30%, moderate TR, moderate MR - Cardiac catheterization history: August 2024 revealing acutely occluded proximal left circumflex, severe lesion in the proximal LAD, mild disease in the RCA. Patient underwent stenting of the left circumflex and proximal LAD REVIEW OF SYSTEMS: At the time of my exam: CONSTITUTIONAL: Denies fever or chills. HEENT: Denies blurred vision, vision changes, or eye pain. Denies hemoptysis CARDIOVASCULAR: Denies chest pain. Denies orthopnea. Denies PND. Denies palpitations RESPIRATORY: Denies shortness of breath. GASTROINTESTINAL: Denies abdominal pain. Denies nausea or vomiting. HEMATOLOGIC: Denies bleeding disorders. GENITOURINARY: Denies any blood in urine. SKIN: Denies pruitis. Denies rash. PHYSICAL EXAM: VITAL SIGNS: Reviewed. GENERAL: Well-developed in no acute distress. HEENT: Head is normocephalic. Pupils are equal, round. Sclerae anicteric. Mucous membranes of the mouth are moist. Neck supple. No JVD or thyromegaly LUNGS: Respirations even and unlabored. Lungs essentially clear to auscultation bilaterally. HEART: Regular rate and rhythm. S1 and S2 heard. ICD insertion site with dressing noted. No drainage. Mild tenderness to touch. No signs of infection. ABDOMEN: Soft. Nondistended. Nontender. EXTREMITIES: Normal range of motion. No clubbing or cyanosis. Peripheral pulses intact. No lower extremity edema NEUROLOGIC: Awake and alert. Oriented x 3. ASSESSMENT: Chest pain, atypical, ACS ruled out Ischemic cardiomyopathy, status post BiV ICD implantation 01/14/2025 Minimally elevated troponins, flat, no evidence of ACS, of no clinical signi ficance Coronary artery disease with previous stenting Paroxysmal atrial fibrillation Chronic heart failure with reduced EF, currently euvolemic Hyperlipidemia History of statin myalgia PLAN: Resume home cardiac medications Patient's ICD insertion site is tender to touch. Add Tylenol 3 for pain. However is healing well with no signs of infection. Continue to monitor patient for additional 24 hours anticipate discharge home tomorrow Patient to follow-up postdischarge with Dr. Romano Nurse practitioner note has been reviewed by physician. Signing provider agrees with the documented findings, assessment, and plan of care documented by BRAKE OPERATOR HEAVY DUTY as a scribe. 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 x7 stents. Last Myocardial Infarction Date:: 08/11/2024 History of Any Multi-Drug Resistant Organisms: None Reported Past Surgical History: Heart Catheterization, Heart Catheterization With Stent Additional Past Surgical History / Comment(s): left hip replacement 2020, hernia repair 2013, colonoscopy, right ankle tendon repair, Past Anesthesia/Blood Transfusion Reactions: No Reported Reaction Date of Last Stent Placement:: 08/11/2024 Past Psychological History: No Psychological Hx Reported Smoking Status: Former smoker Past Alcohol Use History: None Reported, Occasional Past Drug Use History: None Reported - Past Family History Mother Family Medical History: Pulmonary Embolus Father Family Medical History: Coronary Artery Disease (CAD) Medications and Allergies Home Medications Medication Instructions Recorded Confirmed Type Eplerenone 12.5 mg PO W/BRKFST 08/11/24 01/18/25 History Ezetimibe [Zetia] 10 mg PO W/SUPPER 08/11/24 01/18/25 History Losartan [Cozaar] 12.5 mg PO W/BRKFST 08/11/24 01/18/25 History Rosuvastatin Calcium [Crestor] 5 mg PO W/BRKFST 08/11/24 01/18/25 History Apixaban [Eliquis] 5 mg PO BID-W/MEALS 01/18/25 01/18/25 History Aspirin 81 mg PO W/BRKFST 01/18/25 01/18/25 History Cyanocobalamin (Vitamin B-12) 1,000 mcg PO W/BRKFST 01/18/25 01/18/25 History [Vitamin B-12] Metoprolol Succinate (ER) [Toprol 50 mg PO W/BRKFST 01/18/25 01/18/25 History XL] Ticagrelor [Brilinta] 90 mg PO BID-W/MEALS 01/18/25 01/18/25 History Ubidecarenone [Coenzyme Q-10] 100 mg PO W/BRKFST 01/18/25 01/18/25 History Allergies Allergy/AdvReac Type Severity Reaction Status Date / Time No Known Allergies Allergy Verified 01/18/25 16:22 Physical Exam Vitals: Vital Signs Temp Pulse Resp BP Pulse Ox 01/19/25 09:16 79 18 110/65 95 01/19/25 06:47 98.3 F 73 18 104/61 94 L 01/19/25 04:00 76 20 121/74 95 01/19/25 02:00 70 18 116/65 94 L 01/19/25 00:26 98.6 F 76 16 109/70 96 01/18/25 22:26 98.6 F 82 16 116/71 95 01/18/25 19:13 98.1 F 84 16 111/76 94 L 01/18/25 14:00 80 18 126/78 98 01/18/25 13:00 80 18 132/78 98 01/18/25 11:50 98 18 146/87 99 01/18/25 09:48 99.2 F 88 24 148/75 99 Results 01/19/25 09:02 01/19/25 09:02 Cardiac Enzymes 01/18/25 01/18/25 01/18/25 Range/Units 10:44 10:44 16:10 AST 89 H (17-59) U/L Troponin I 0.052 H* 0.056 H* (0.000-0.034) ng/mL 01/18/25 01/19/25 Range/Units 19:27 09:02 AST 76 H (17-59) U/L Troponin I 0.052 H* (0.000-0.034) ng/mL Coagulation 01/18/25 Range/Units 10:44 PT 11.9 (10.0-12.5) sec APTT 23.1 (22.0-30.0) sec CBC 01/18/25 01/19/25 Range/Units 10:44 09:02 WBC 10.60 H 8.73 (4.50-10.00) 10*3/uL RBC 4.16 L 3.91 L (4.40-5.60) 10*6/uL Hgb 13.5 12.7 L (13.0-17.0) g/dL Hct 40.3 38.3 L (39.6-50.0) % Plt Count 174 152 (140-440) 10*3/uL Comprehensive Metabolic Panel 01/18/25 01/19/25 Range/Units 10:44 09:02 Sodium 140 135 L (137-145) mmol/L Potassium 4.0 4.3 (3.5-5.1) mmol/L Chloride 105 99 (98-107) mmol/L Carbon Dioxide 21 L 26 (22-30) mmol/L BUN 14 16 (9-20) mg/dL Creatinine 0.62 L 0.68 (0.66-1.25) mg/dL Glucose 125 H 170 H (74-99) mg/dL Calcium 9.2 9.0 (8.4-10.2) mg/dL AST 89 H 76 H (17-59) U/L ALT 60 H 58 H (4-49) U/L Alkaline Phosphatase 95 76 (38-126) U/L Total Protein 7.6 7.2 (6.3-8.2) g/dL Albumin 4.4 4.1 (3.5-5.0) g/dL Current Medications Generic Name Dose Route Start Last Admin Trade Name Armaan PRN Reason Stop Dose Admin Acetaminophen 650 mg 01/18/25 15:51 01/19/25 04:33 Acetaminophen Tab 325 Mg Tab PO 650 mg Q6HR PRN Administration Mild Pain or Fever > 100.5 Acetaminophen/Codeine Phosphate 1 each 01/19/25 07:57 Acetaminophen-Codeine 300-30mg Tab PO Q4HR PRN Pain 4-6 Apixaban 5 mg 01/19/25 08:00 01/19/25 09:20 Apixaban 5 Mg Tab PO 5 mg BID-W/MEALS LENNY Administration Protocol Aspirin 81 mg 01/19/25 08:00 01/19/25 09:20 Aspirin 81 Mg PO 81 mg W/BRKFST LENNY Administration Atorvastatin Calcium 10 mg 01/19/25 08:00 01/19/25 09:19 Atorvastatin 10 Mg Tab PO 10 mg W/BRKFST LENNY Administration Ezetimibe 10 mg 01/19/25 17:30 Ezetimibe 10 Mg Tab PO W/SUPPER LENNY Losartan Potassium 12.5 mg 01/19/25 08:00 01/19/25 09:22 Losartan 25 Mg Tab PO 12.5 mg W/BRKFST LENNY Administration Metoprolol Succinate 50 mg 01/19/25 08:00 01/19/25 09:19 Metoprolol Succinate (Er) 50 Mg Tab.Er.24h PO 50 mg W/BRKFST LENNY Administration Morphine Sulfate 4 mg 01/18/25 15:51 Morphine Sulfate 4 Mg/Ml Syringe IV Q4HR PRN Severe Pain (Scale 7 to 10) Naloxone HCl 0.2 mg 01/18/25 15:51 Naloxone 0.4 Mg/Ml 1 Ml Vial IV Q2M PRN Opioid Reversal Ondansetron HCl 4 mg 01/18/25 15:51 Ondansetron 4 Mg/2 Ml Vial IVP Q8HR PRN Nausea And Vomiting Ticagrelor 90 mg 01/19/25 08:00 01/19/25 09:19 Ticagrelor 90 Mg Tab PO 90 mg BID-W/MEALS LENNY Administration 01/19/25 09:02 01/19/25 09:02
--- NOTE | 2025-01-19 12:07 | P.HPIM ---
History of Present Illness This is a pleasant 74 years old male with past medical history of heart disease and he has coronary artery disease status post stent and CHF. He status post AICD placement on 01/14 Presents because of pain around the pacemaker placement in the left upper chest. His pain was severe /, currently improved / associated with little shortness of breath no coughing. [place] like sharp worse with deep breath or movement Denies any specific GI surgical symptoms. No headache dizziness weakness numbness. She denies smoking rarely drinks alcohol no illicit drugs. He is hemodynamically stable, has temperature of 99.2. Mildly tachypneic but once he sits down that is improved. WBC is 10.6 and 8.7 and hemoglobin 12.7. D-dimer is elevated 0.96. CT of the chest showing no pulm embolism but there is gas and inflammatory changes around the left upper chest wall pacemaker and but there is T5-9 compression fracture of the vertebra consider MRI. EKG showing sinus rhythm at [address]-T changes chest x-ray showing cardiomegaly with no acute process. Patient resumes on Eliquis aspirin and Brilinta Review of Systems Review of systems CONSTITUTIONAL: No fever, no malaise, no fatigue. HEENT: No recent visual problems or hearing problems. Denied any sore throat. CARDIOVASCULAR: No orthopnea, PND, no palpitations, no syncope. PULMONARY: No shortness of breath, no cough, no hemoptysis. GASTROINTESTINAL: No diarrhea, no nausea, no vomiting, no abdominal pain. Normoactive bowel sounds. NEUROLOGICAL: No headaches, no weakness, no numbness. HEMATOLOGICAL: Denies any bleeding or petechiae. GENITOURINARY: Denies any burning micturition, frequency, or urgency. MUSCULOSKELETAL/RHEUMATOLOGICAL: Denies any joint pain, swelling, or any muscle pain. ENDOCRINE: Denies any polyuria or polydipsia. 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 x7 stents. Last Myocardial Infarction Date:: 08/11/2024 History of Any Multi-Drug Resistant Organisms: None Reported Past Surgical History: Heart Catheterization, Heart Catheterization With Stent Additional Past Surgical History / Comment(s): left hip replacement 2020, hernia repair 2013, colonoscopy, right ankle tendon repair, Past Anesthesia/Blood Transfusion Reactions: No Reported Reaction Date of Last Stent Placement:: 08/11/2024 Past Psychological History: No Psychological Hx Reported Smoking Status: Former smoker Past Alcohol Use History: None Reported, Occasional Past Drug Use History: None Reported - Past Family History Mother Family Medical History: Pulmonary Embolus Father Family Medical History: Coronary Artery Disease (CAD) Medications and Allergies Home Medications Medication Instructions Recorded Confirmed Type Eplerenone 12.5 mg PO W/BRKFST 08/11/24 01/18/25 History Ezetimibe [Zetia] 10 mg PO W/SUPPER 08/11/24 01/18/25 History Losartan [Cozaar] 12.5 mg PO W/BRKFST 08/11/24 01/18/25 History Rosuvastatin Calcium [Crestor] 5 mg PO W/BRKFST 08/11/24 01/18/25 History Apixaban [Eliquis] 5 mg PO BID-W/MEALS 01/18/25 01/18/25 History Aspirin 81 mg PO W/BRKFST 01/18/25 01/18/25 History Cyanocobalamin (Vitamin B-12) 1,000 mcg PO W/BRKFST 01/18/25 01/18/25 History [Vitamin B-12] Metoprolol Succinate (ER) [Toprol 50 mg PO W/BRKFST 01/18/25 01/18/25 History XL] Ticagrelor [Brilinta] 90 mg PO BID-W/MEALS 01/18/25 01/18/25 History Ubidecarenone [Coenzyme Q-10] 100 mg PO W/BRKFST 01/18/25 01/18/25 History Allergies Allergy/AdvReac Type Severity Reaction Status Date / Time No Known Allergies Allergy Verified 01/18/25 16:22 Physical Exam Vitals: Vital Signs Temp Pulse Resp BP Pulse Ox 01/19/25 09:16 79 18 110/65 95 01/19/25 06:47 98.3 F 73 18 104/61 94 L 01/19/25 04:00 76 20 121/74 95 01/19/25 02:00 70 18 116/65 94 L 01/19/25 00:26 98.6 F 76 16 109/70 96 01/18/25 22:26 98.6 F 82 16 116/71 95 01/18/25 19:13 98.1 F 84 16 111/76 94 L 01/18/25 14:00 80 18 126/78 98 01/18/25 13:00 80 18 132/78 98 01/18/25 11:50 98 18 146/87 99 01/18/25 09:48 99.2 F 88 24 148/75 99 GENERAL: The patient is alert and oriented x3, not in any acute distress. Well developed, well nourished. HEENT: Pupils are round and equally reacting to light. EOMI. No scleral icterus. No conjunctival pallor. Normocephalic, atraumatic. No pharyngeal erythema. No thyromegaly. -CARDIOVASCULAR: S1 and S2 present. No murmurs, rubs, or gallops. Dressing in the left upper chest intact with no evidence of surrounding cellulitis PULMONARY: Chest is clear to auscultation, no wheezing , no crackles. ABDOMEN: Soft, nontender, nondistended, normoactive bowel sounds. No palpable organomegaly. MUSCULOSKELETAL: No joint swelling or deformity. EXTREMITIES: No cyanosis, clubbing, or pedal edema. NEUROLOGICAL: Gross neurological examination did not reveal any focal deficits. SKIN: No rashes. no petechiae. Results CBC & Chem 7: 01/19/25 09:02 01/19/25 09:02 Labs: Abnormal Lab Results - Last 24 Hours (Table) 01/18/25 01/18/25 01/18/25 Range/Units 10:44 10:44 10:44 WBC 10.60 H (4.50-10.00) 10*3/uL RBC 4.16 L (4.40-5.60) 10*6/uL Hgb (13.0-17.0) g/dL Hct (39.6-50.0) % MCV (80.0-97.0) fL MCH 32.5 H (27.0-32.0) pg Neutrophils # 9.27 H (1.80-7.70) 10*3/uL Lymphocytes # 0.41 L (0.90-5.00) 10*3/uL Eosinophils # 0.02 L (0.04-0.35) 10*3/uL D-Dimer 0.96 H (<0.60) mg/L FEU Carbon Dioxide (22-30) mmol/L Creatinine (0.66-1.25) mg/dL Glucose (74-99) mg/dL AST (17-59) U/L ALT (4-49) U/L Troponin I 0.052 H* (0.000-0.034) ng/mL 01/18/25 01/18/25 01/18/25 Range/Units 10:44 16:10 19:27 WBC (4.50-10.00) 10*3/uL RBC (4.40-5.60) 10*6/uL Hgb (13.0-17.0) g/dL Hct (39.6-50.0) % MCV (80.0-97.0) fL MCH (27.0-32.0) pg Neutrophils # (1.80-7.70) 10*3/uL Lymphocytes # (0.90-5.00) 10*3/uL Eosinophils # (0.04-0.35) 10*3/uL D-Dimer (<0.60) mg/L FEU Carbon Dioxide 21 L (22-30) mmol/L Creatinine 0.62 L (0.66-1.25) mg/dL Glucose 125 H (74-99) mg/dL AST 89 H (17-59) U/L ALT 60 H (4-49) U/L Troponin I 0.056 H* 0.052 H* (0.000-0.034) ng/mL 01/19/25 Range/Units 09:02 WBC (4.50-10.00) 10*3/uL RBC 3.91 L (4.40-5.60) 10*6/uL Hgb 12.7 L (13.0-17.0) g/dL Hct 38.3 L (39.6-50.0) % MCV 98.0 H (80.0-97.0) fL MCH 32.5 H (27.0-32.0) pg Neutrophils # (1.80-7.70) 10*3/uL Lymphocytes # 0.46 L (0.90-5.00) 10*3/uL Eosinophils # 0.02 L (0.04-0.35) 10*3/uL D-Dimer (<0.60) mg/L FEU Carbon Dioxide (22-30) mmol/L Creatinine (0.66-1.25) mg/dL Glucose (74-99) mg/dL AST (17-59) U/L ALT (4-49) U/L Troponin I (0.000-0.034) ng/mL Assessment and Plan Assessment: Chest pain, atypical S/p pacemaker placement on 01/[address] of the chest showing gas and inflammation around the left chest wall pacemaker Compression fraction of T5 and T9. Asymptomatic, no weakness. Coronary artery disease s/p stent Ischemic cardiomyopathy status post AICD on 01/14 Paroxysmal atrial fibrillation Hyperlipidemia Plan: Continue with pain management No fever no elevated white cell count. Suspicion of infection is low per sterile instrument technician. Continue monitoring Patient denies any symptoms with compression fraction he says his orthopedic is Dr. Nia garcía and he is willing to follow-up with him within 1 week after discharge as instructed Labs and medication were reviewed.. Continue same treatment. Continue with symptomatic treatment. Resume home medication. Monitor labs and vitals. DVT and GI prophylaxis. Further recommendations as per clinical course of the patient DVT prophylaxis: Subcutaneous heparin GI Prophylaxis: Pepcid PT/OT: Pending Prognosis is guarded
[2025-01-19] MEDS: EZETIMIBE 10 MG TAB PO SCH (17:46)
[2025-01-20 02:30] LABS: Basophils # (A) 0.01 10*3/uL (0.00-0.10); Basophils % (A) 0.1 %; Eosinophils # (A) 0.08 10*3/uL (0.04-0.35); HCT 34.2 % (39.6-50.0); HGB 11.5 g/dL (13.0-17.0); Lymphocytes # (A) 0.86 10*3/uL (0.90-5.00); Lymphocytes % (A) 10.6 %; MCH 32.5 pg (27.0-32.0); MCHC 33.6 g/dL (32.0-37.0); MCV 96.6 fL (80.0-97.0); Mean Platelet Volume 9.9 fL (9.5-12.2); Monocytes % (A) 13.6 %; Neutrophils # (A) 6.01 10*3/uL (1.80-7.70); Neutrophils % (A) 74.3 %; Platelet Count 141 10*3/uL (140-440); RBC 3.54 10*6/uL (4.40-5.60); RDW 12.7 % (11.5-14.5); WBC 8.09 10*3/uL (4.50-10.00)
[2025-01-20 03:03] LABS: African American GFR (CKD) >90 (>60 ml/min/1.73 sqM); Anion Gap 7 mmol/L; Blood Urea Nitrogen 18 mg/dL (9-20); Calcium 8.7 mg/dL (8.4-10.2); Carbon Dioxide 25 mmol/L (22-30); Chloride 103 mmol/L (98-107); Glucose 112 mg/dL (74-99); Non-African American GFR(CKD) >90 (>60 ml/min/1.73 sqM); Sodium 135 mmol/L (137-145)
[2025-01-20 07:54] VITALS: BP 109/70; PULSE 96; RESP 18; TEMP 98.1
--- NOTE | 2025-01-20 09:33 | P.PN ---
Subjective HISTORY OF PRESENT ILLNESS: This is a 74-year-old male with a past medical history significant for coronary artery disease, paroxysmal atrial fibrillation, ischemic cardiomyopathy, congestive heart failure, and hyperlipidemia with statin myalgias. Patient follows in the office with Dr. Romano. We have been asked to see the patient in consultation for chest pain. Patient examined at the bedside in the emergency room. Patient presented to the hospital for chief complaint of chest discomfort. He states the pain is worse when he takes a deep breath. He has been receiving Tylenol which he states has been helping the pain. It is noted that the patient underwent BiV ICD implantation on 01/14/[address] Lopez. DIAGNOSTICS: - EKG reveals paced rhythm - Chest xray cardiomegaly -Chest CTA: Negative for pulmonary embolism. Gas and inflammation around chest wall pacemaker. Cardiomegaly. Correlate for pulmonary vascular congestion. - Laboratory data: WBC 8.73. Hemoglobin 12.7. Platelet count 152. D-dimer 0.96. Sodium 135. Potassium 4.3. BUN 16. Creatinine 0.68. proBNP 2460. Troponin 0.052. 0.056. 0.052. - Current home cardiac medications include Brilinta 90 mg twice a day, Crestor 5 mg with breakfast, losartan 12.5 mg daily, Zetia 10 mg daily, aspirin 81 mg daily, Eliquis 5 mg twice a day, metoprolol succinate 50 mg daily, and eplerenone 12.5 mg daily. - Most recent echocardiogram obtained in August 2024 revealed ejection fraction 25 to 30%, moderate TR, moderate MR - Cardiac catheterization history: August 2024 revealing acutely occluded proximal left circumflex, severe lesion in the proximal LAD, mild disease in the RCA. Patient underwent stenting of the left circumflex and proximal LAD 01/20/2025 Patient examined this morning at bedside. Patient states he is feeling much better today. He denies chest pain or pressure. He denies shortness of breath. Vital signs are stable. PHYSICAL EXAM: VITAL SIGNS: Reviewed. GENERAL: Well-developed in no acute distress. HEENT: Head is normocephalic. Pupils are equal, round. Sclerae anicteric. Mucous membranes of the mouth are moist. Neck supple. No JVD or thyromegaly LUNGS: Respirations even and unlabored. Lungs essentially clear to auscultation bilaterally. HEART: Regular rate and rhythm. S1 and S2 heard. ICD insertion site with dressing noted. No drainage. Mild tenderness to touch. No signs of infection. ABDOMEN: Soft. Nondistended. Nontender. EXTREMITIES: Normal range of motion. No clubbing or cyanosis. Peripheral pulses intact. No lower extremity edema NEUROLOGIC: Awake and alert. Oriented x 3. ASSESSMENT: Chest pain, atypical, ACS ruled out Ischemic cardiomyopathy, status post BiV ICD implantation 01/14/2025 Minimally elevated troponins, flat, no evidence of ACS, of no clinical significance Coronary artery disease with previous stenting Paroxysmal atrial fibrillation Chronic heart failure with reduced EF, currently euvolemic Hyperlipidemia History of statin myalgia PLAN: Continue current cardiac medications Patient is stable for discharge home today from a cardiac standpoint Patient to follow-up postdischarge with Dr. Romano We will sign off. Please reconsult if needed. Nurse practitioner note has been reviewed by physician. Signing provider agrees with the documented findings, assessment, and plan of care documented by LICENSED PHARMACIST as a scribe. Objective - Vital Signs Vital signs: Vital Signs Temp 98.1 F 01/20/25 07:00 Pulse 96 01/20/25 07:00 Resp 18 01/20/25 07:00 BP 109/70 01/20/25 07:00 Pulse Ox 95 01/20/25 07:00 FiO2 Intake & Output 01/19/25 01/20/25 01/20/25 18:59 06:59 18:59 Intake Total 540 Balance 540 Intake: Oral 540 Other: Voiding Method Toilet # Voids 1 - Labs CBC & Chem 7: 01/20/25 02:22 01/20/25 02:22 Labs: Abnormal Lab Results - Last 24 Hours (Table) 01/19/25 01/20/25 01/20/25 Range/Units 09:02 02:22 02:22 RBC 3.54 L (4.40-5.60) 10*6/uL Hgb 11.5 L (13.0-17.0) g/dL Hct 34.2 L (39.6-50.0) % MCH 32.5 H (27.0-32.0) pg Lymphocytes # 0.86 L (0.90-5.00) 10*3/uL Monocytes # 1.10 H (0.20-1.00) 10*3/uL Sodium 135 L 135 L (137-145) mmol/L Glucose 170 H 112 H (74-99) mg/dL AST 76 H (17-59) U/L ALT 58 H (4-49) U/L
== END 2025-01-20 14:16 | disposition home or self-care (01) ==
LOC: EC 09:47 → 6NMEDSUR 16:43 → 3SCARD 17:55
PROVIDERS: ADMIT Internal Medicine; ATTEND Internal Medicine
DX: R07.89 Other chest pain (principal); M48.54XA Collapsed vertebra, not elsewhere classified, thoracic region, initial encounter for fracture; I11.0 Hypertensive heart disease with heart failure; I50.22 Chronic systolic (congestive) heart failure; I25.10 Atherosclerotic heart disease of native coronary artery without angina pectoris; I25.2 Old myocardial infarction; I25.5 Ischemic cardiomyopathy; E78.5 Hyperlipidemia, unspecified; I48.0 Paroxysmal atrial fibrillation; D68.2 Hereditary deficiency of other clotting factors; Z79.01 Long term (current) use of anticoagulants; Z79.02 Long term (current) use of antithrombotics/antiplatelets; Z79.82 Long term (current) use of aspirin; Z86.74 Personal history of sudden cardiac arrest; Z95.5 Presence of coronary angioplasty implant and graft; Z95.810 Presence of automatic (implantable) cardiac defibrillator; Z87.891 Personal history of nicotine dependence
CPT/HCPCS: 96374 ×2; 96375; 99285; 36415; 93005; 85379; 83880; 80053 ×2; 80048; 83735 ×2; 84484; 85025 ×3; 85610; 85730; 71046; 71275; G0378 ×3; J2270; J2405; Q9967

== ENCOUNTER 2025-02-02 15:10 | Inpatient (IN) | payer MEDICARE ==
--- NOTE | 2025-02-02 16:06 | ED ---
SOB HPI - General Chief Complaint: Shortness of Breath Stated Complaint: Shortness of breath/Swollen Feet B/L Time Seen by Provider: 02/02/25 15:37 Source: patient, RN notes reviewed, old records reviewed Mode of arrival: wheelchair Limitations: no limitations - History of Present Illness Initial Comments: This is a 74 male to ER with severe exertional shortness of breath and dyspnea. Patient states he has history of heart failure, symptoms have progressed especially with inability to sleep at night and any sort of exertion causing him significant distress MD Complaint: shortness of breath, chest pain, anxiety -: days(s) Severity: moderate Severity scale (1-10): 7 Consistency: intermittent Improves With: rest Worsens With: exertion Known History Of: congestive heart failure Associated Symptoms: palpitations Treatments Prior to Arrival: none - Related Data Home Medications Medication Instructions Recorded Confirmed Eplerenone 12.5 mg PO W/BRKFST 08/11/24 01/18/25 Ezetimibe [Zetia] 10 mg PO W/SUPPER 08/11/24 01/18/25 Losartan [Cozaar] 12.5 mg PO W/BRKFST 08/11/24 01/18/25 Rosuvastatin Calcium [Crestor] 5 mg PO W/BRKFST 08/11/24 01/18/25 Apixaban [Eliquis] 5 mg PO BID-W/MEALS 01/18/25 01/18/25 Aspirin 81 mg PO W/BRKFST 01/18/25 01/18/25 Cyanocobalamin (Vitamin B-12) 1,000 mcg PO W/BRKFST 01/18/25 01/18/25 [Vitamin B-12] Metoprolol Succinate (ER) [Toprol 50 mg PO W/BRKFST 01/18/25 01/18/25 XL] Ticagrelor [Brilinta] 90 mg PO BID-W/MEALS 01/18/25 01/18/25 Ubidecarenone [Coenzyme Q-10] 100 mg PO W/BRKFST 01/18/25 01/18/25 Allergies Allergy/AdvReac Type Severity Reaction Status Date / Time atorvastatin [From Lipitor] Allergy Nausea & Verified 02/02/25 15:27 Vomiting Review of Systems ROS Statement: Those systems with pertinent positive or pertinent negative responses have been documented in the HPI. ROS Other: All systems not noted in ROS Statement are negative. 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 x7 stents. cardiomyopathy lv. sick sinus Last Myocardial Infarction Date:: 08/11/2024 History of Any Multi-Drug Resistant Organisms: None Reported Past Surgical History: Heart Catheterization, Heart Catheterization With Stent Additional Past Surgical History / Comment(s): left hip replacement 2020, hernia repair 2013, colonoscopy, right ankle tendon repair, Past Anesthesia/Blood Transfusion Reactions: No Reported Reaction Date of Last Stent Placement:: 08/11/2024 Past Psychological History: No Psychological Hx Reported Smoking Status: Former smoker Past Alcohol Use History: None Reported, Occasional Past Drug Use History: None Reported - Past Family History Mother Family Medical History: Pulmonary Embolus Father Family Medical History: Coronary Artery Disease (CAD) General Exam Limitations: no limitations General appearance: alert, in no apparent distress Head exam: Present: atraumatic, normocephalic, normal inspection Eye exam: Present: normal appearance, PERRL, EOMI. Absent: scleral icterus, conjunctival injection, periorbital swelling ENT exam: Present: normal exam, mucous membranes moist Neck exam: Present: normal inspection. Absent: tenderness, meningismus, lymphadenopathy Respiratory exam: Present: normal lung sounds bilaterally. Absent: respiratory distress, wheezes, rales, rhonchi, stridor Cardiovascular Exam: Present: regular rate, normal rhythm, normal heart sounds. Absent: systolic murmur, diastolic murmur, rubs, gallop, clicks GI/Abdominal exam: Present: soft, normal bowel sounds. Absent: distended, tenderness, guarding, rebound, rigid Extremities exam: Present: normal inspection, full ROM, normal capillary refill. Absent: tenderness, pedal edema, joint swelling, calf tenderness Back exam: Present: normal inspection Neurological exam: Present: alert, oriented X3, CN II-XII intact Psychiatric exam: Present: normal affect, normal mood Skin exam: Present: warm, dry, intact, normal color. Absent: rash Course Vital Signs 02/02/25 02/02/25 02/02/25 15:22 16:30 17:00 Temperature 97.5 F L Pulse Rate 90 89 80 Respiratory 20 17 18 Rate Blood Pressure 119/67 106/78 104/82 O2 Sat by Pulse 100 100 98 Oximetry 02/02/25 02/02/25 17:30 18:00 Temperature Pulse Rate 85 71 Respiratory 16 22 Rate Blood Pressure 108/80 106/83 O2 Sat by Pulse 99 99 Oximetry - Reevaluation(s) Reevaluation #1: 02/02/25 16:22 Medical records reviewed Reevaluation #2: 02/02/25 18:49 Patient is in a significant distress here in the emergency department Reevaluation #3: 02/02/25 18:49 Patient informed of results questions answered Reevaluation #4: Was pt. sent in by a medical professional or institution (NICOLE Dodd, [employer], urgent care, hospital, or prison...) When possible be specific @ -no Did you speak to anyone other than the patient for history (EMS, parent, family, police, friend...)? What history was obtained from this source @ -no Did you review nursing and triage notes (agree or disagree)? Why? @ -agree Are old charts reviewed (outside hosp., previous admission, EMS record, old EKG, old radiological studies, urgent care reports/EKG's, prison records)? Report findings @ -yes Differential Diagnosis (chest pain, altered mental status, abdominal pain women, abdominal pain men, vaginal bleeding, weakness, fever, dyspnea, syncope, headache, dizziness, GI bleed, back pain, seizure, CVA, palpatations, mental health, musculoskeletal)? @ -prior EKG interpreted by me (3pts min.). @ -yes X-rays interpreted by me (1pt min.). @ -yes negative for acute disease CT interpreted by me (1pt min.). @ -no U/S interpreted by me (1pt. min.). @ -no What testing was considered but not performed or refused? (CT, X-rays, U/S, labs)? Why? @ -none What meds were considered but not given or refused? Why? @ -none Did you discuss the management of the patient with other professionals (professionals i.e. NICOLE Dodd, [employer], lab, RT, psych nurse, social work administrator, matcher, teacher, chief investment officer, rn case manager)? Give summary @ -no Was smoking cessation discussed for >3mins.? @ -no Was critical care preformed (if so, how long)? @ -no Were there social determinants of health that impacted care today? How? (Homelessness, low income, unemployed, alcoholism, drug addiction, transportation, low edu. Level, literacy, decrease access to med. care, fpc, rehab)? @ -none Was there de-escalation of care discussed even if they declined (Discuss DNR or withdrawal of care, Hospice)? DNR status @ -no What co-morbidities impacted this encounter? (DM, HTN, Smoking, COPD, CAD, Cancer, CVA, ARF, Chemo, Hep., AIDS, mental health diagnosis, sleep apnea, morbid obesity)? @ -none Was patient admitted / discharged? Hospital course, mention meds given and route, prescriptions, significant lab abnormalities, going to OR and other pertinent info. @ - Undiagnosed new problem with uncertain prognosis? @ -no Drug Therapy requiring intensive monitoring for toxicity (Heparin, Nitro, Insulin, Cardizem)? @ -no Were any procedures done? @ -no Diagnosis/symptom? @ - Acute, or Chronic, or Acute on Chronic? @ -Acute Uncomplicated (without systemic symptoms) or Complicated (systemic symptoms)? @ -Complicated Side effects of treatment? @ -no Exacerbation, Progression, or Severe Exacerbation? @ -exacerbation Poses a threat to life or bodily function? How? (Chest pain, USA, VT, pneumonia, PE, COPD, DKA, ARF, appy, cholecystitis, CVA, Diverticulitis, Homicidal, Suicidal, threat to staff... and all critical care pts) @ -yes Reevaluation #5: Differential Dyspnea: Coronary syndrome, arrhythmia, tamponade, asthma, COPD, pulmonary embolism, pneumonia, pneumothorax, pulmonary effusion, anaphylaxis, diabetic ketoacidosis, flailed chest, pulmonary contusion, diaphragmatic rupture, anemia, neuromuscular, this is not meant to be an all-inclusive list. - Consultations Consultation #1: Spoke with [facility] who agrees to admit this patient Medical Decision Making - Medical Decision Making 74 male to the ER for evaluation patient has significant heart failure here in the ER recent defibrillator is placed pacemaker defibrillator, A-fib with multiple runs of PVCs here in the emergency department patient remains short of breath especially with exertion will admit for cardiac observation - Lab Data Result diagrams: 02/02/25 16:27 02/02/25 16:27 Lab Results 02/02/25 02/02/25 02/02/25 Range/Units 16:27 16:27 16:27 WBC 8.93 (4.50-10.00) 10*3/uL RBC 3.75 L (4.40-5.60) 10*6/uL Hgb 12.0 L (13.0-17.0) g/dL Hct 37.1 L (39.6-50.0) % MCV 98.9 H (80.0-97.0) fL MCH 32.0 (27.0-32.0) pg MCHC 32.3 (32.0-37.0) g/dL Plt Count 434 D (140-440) 10*3/uL MPV 9.6 (9.5-12.2) fL Immature Gran % (Auto) 0.3 % Neutrophils % 84.6 % Lymphocytes % 6.2 % Monocytes % 8.7 % Eosinophils % 0.0 % Basophils % 0.2 % Immature Gran # 0.03 (0.00-0.04) 10*3/uL Neutrophils # 7.55 (1.80-7.70) 10*3/uL Lymphocytes # 0.55 L (0.90-5.00) 10*3/uL Monocytes # 0.78 (0.20-1.00) 10*3/uL Eosinophils # 0.00 L (0.04-0.35) 10*3/uL Basophils # 0.02 (0.00-0.10) 10*3/uL PT 13.9 H (10.0-12.5) sec INR 1.3 H (<1.2) APTT 23.6 (22.0-30.0) sec Sodium 139 (137-145) mmol/L Potassium 5.6 H (3.5-5.1) mmol/L Chloride 108 H (98-107) mmol/L Carbon Dioxide 23 (22-30) mmol/L Anion Gap 8 mmol/L BUN 24 H (9-20) mg/dL Creatinine 0.63 L (0.66-1.25) mg/dL Est GFR (CKD-EPI)AfAm >90 (>60 ml/min/1.73 sqM) Est GFR (CKD-EPI)NonAf >90 (>60 ml/min/1.73 sqM) Glucose 115 H (74-99) mg/dL Plasma Lactic Acid Chase (0.7-2.0) mmol/L Calcium 9.0 (8.4-10.2) mg/dL Magnesium 2.3 (1.6-2.3) mg/dL Total Bilirubin 0.5 (0.2-1.3) mg/dL AST 43 (17-59) U/L ALT 61 H (4-49) U/L Alkaline Phosphatase 98 (38-126) U/L Troponin I (0.000-0.034) ng/mL NT-Pro-B Natriuret Pep 9930 pg/mL Total Protein 7.0 (6.3-8.2) g/dL Albumin 3.6 (3.5-5.0) g/dL 02/02/25 02/02/25 Range/Units 16:27 16:27 WBC (4.50-10.00) 10*3/uL RBC (4.40-5.60) 10*6/uL Hgb (13.0-17.0) g/dL Hct (39.6-50.0) % MCV (80.0-97.0) fL MCH (27.0-32.0) pg MCHC (32.0-37.0) g/dL Plt Count (140-440) 10*3/uL MPV (9.5-12.2) fL Immature Gran % (Auto) % Neutrophils % % Lymphocytes % % Monocytes % % Eosinophils % % Basophils % % Immature Gran # (0.00-0.04) 10*3/uL Neutrophils # (1.80-7.70) 10*3/uL Lymphocytes # (0.90-5.00) 10*3/uL Monocytes # (0.20-1.00) 10*3/uL Eosinophils # (0.04-0.35) 10*3/uL Basophils # (0.00-0.10) 10*3/uL PT (10.0-12.5) sec INR (<1.2) APTT (22.0-30.0) sec Sodium (137-145) mmol/L Potassium (3.5-5.1) mmol/L Chloride (98-107) mmol/L Carbon Dioxide (22-30) mmol/L Anion Gap mmol/L BUN (9-20) mg/dL Creatinine (0.66-1.25) mg/dL Est GFR (CKD-EPI)AfAm (>60 ml/min/1.73 sqM) Est GFR (CKD-EPI)NonAf (>60 ml/min/1.73 sqM) Glucose (74-99) mg/dL Plasma Lactic Acid Chase 1.7 (0.7-2.0) mmol/L Calcium (8.4-10.2) mg/dL Magnesium (1.6-2.3) mg/dL Total Bilirubin (0.2-1.3) mg/dL AST (17-59) U/L ALT (4-49) U/L Alkaline Phosphatase (38-126) U/L Troponin I 0.032 (0.000-0.034) ng/mL NT-Pro-B Natriuret Pep pg/mL Total Protein (6.3-8.2) g/dL Albumin (3.5-5.0) g/dL - EKG Data -: EKG Interpreted by Me (EKG is paced 25 QRS 146 QTc 474) - Radiology Data Radiology results: report reviewed (Chest x-ray is positive for CHF), image reviewed Critical Care Time Critical Care Time: Yes Total Critical Care Time: 31 Disposition Clinical Impression: Chest pain, Acute pulmonary edema, Congestive heart failure Disposition: ADMITTED IP TO THIS HOSP Condition: Fair Is patient prescribed a controlled substance at d/c from ED?: No Referrals: Alex Meza [Primary Care Provider] - 1-2 days Time of Disposition: 18:45
[2025-02-02 16:41] LABS: Basophils # (A) 0.02 10*3/uL (0.00-0.10); Basophils % (A) 0.2 %; Eosinophils # (A) 0.00 10*3/uL (0.04-0.35); Eosinophils % (A) 0.0 %; HCT 37.1 % (39.6-50.0); HGB 12.0 g/dL (13.0-17.0); Lymphocytes # (A) 0.55 10*3/uL (0.90-5.00); Lymphocytes % (A) 6.2 %; MCH 32.0 pg (27.0-32.0); MCHC 32.3 g/dL (32.0-37.0); MCV 98.9 fL (80.0-97.0); Monocytes # (A) 0.78 10*3/uL (0.20-1.00); Monocytes % (A) 8.7 %; Neutrophils # (A) 7.55 10*3/uL (1.80-7.70); Neutrophils % (A) 84.6 %; RBC 3.75 10*6/uL (4.40-5.60); RDW 13.7 % (11.5-14.5); WBC 8.93 10*3/uL (4.50-10.00)
[2025-02-02 16:44] LABS: Platelet Count 434 10*3/uL (140-440)
[2025-02-02 16:51] LABS: ALT 61 U/L (4-49); AST 43 U/L (17-59); African American GFR (CKD) >90 (>60 ml/min/1.73 sqM); Albumin 3.6 g/dL (3.5-5.0); Alkaline Phosphatase 98 U/L (38-126); Anion Gap 8 mmol/L; Blood Urea Nitrogen 24 mg/dL (9-20); Calcium 9.0 mg/dL (8.4-10.2); Carbon Dioxide 23 mmol/L (22-30); Chloride 108 mmol/L (98-107); Glucose 115 mg/dL (74-99); Magnesium 2.3 mg/dL (1.6-2.3); Non-African American GFR(CKD) >90 (>60 ml/min/1.73 sqM); Potassium 5.6 mmol/L (3.5-5.1); Sodium 139 mmol/L (137-145); Total Protein 7.0 g/dL (6.3-8.2)
[2025-02-02 16:53] LABS: INR 1.3 (<1.2); Partial Thromboplastin Time 23.6 sec (22.0-30.0); Prothrombin Time 13.9 sec (10.0-12.5)
[2025-02-02 17:00] LABS: NT-Pro-B-Type Natriuretic Pept 9930 pg/mL
--- NOTE | 2025-02-02 17:02 | XR ---
EXAMINATION TYPE: XR chest 2V DATE OF EXAM: 02/02/2025 4:40 PM COMPARISON: Chest radiographs from 01/18/2025. CLINICAL INDICATION: Male, 74 years old with history of difficulty breathing; [facility] TECHNIQUE: XR chest 2V Frontal and lateral views of the chest. FINDINGS: Lungs/Pleura: No evidence of focal consolidation or pneumothorax. Blunting of the costophrenic angles is present. Pulmonary vascularity: Pulmonary vascular congestion. Heart/mediastinum: Cardiomediastinal silhouette is enlarged. Three lead cardiac conduction device ove rlying the left hemithorax with lead tips projecting over the right ventricle, right atrium and coron roberto sinus. Musculoskeletal: No acute osseous pathology. IMPRESSION: Cardiomegaly, pulmonary vascular congestion and bilateral pleural effusions. Correlate with BNP for c ongestive heart failure. [facility], , 02/02/2025 5:00 PM
[2025-02-02] MEDS: FUROSEMIDE 10 MG/ML 4 ML VIAL IV SCH (19:15)
[2025-02-03] MEDS: NITROGLYCERIN OINT 1 INCH/GM PACKET TOPICAL SCH
[2025-02-03] MEDS: SPIRONOLACTONE 25 MG TAB PO SCH (06:48)
[2025-02-03] MEDS: ASPIRIN 81 MG PO SCH (06:49)
[2025-02-03] MEDS: METOPROLOL SUCCINATE (ER) 25 MG TAB.ER.24H PO SCH (06:49)
[2025-02-03] MEDS: CYANOCOBALAMIN 500 MCG TAB PO SCH (06:49)
[2025-02-03] MEDS: APIXABAN 5 MG TAB PO SCH (06:49)
[2025-02-03] MEDS: TICAGRELOR 90 MG TAB PO SCH (06:49)
[2025-02-03] MEDS ORDERED: NON FORMULARY DRUG (Rosuvastatin Calcium [Crestor] 5 MG Tablet) PO SCH (07:30)
[2025-02-03] MEDS: AMIODARONE 200 MG TAB PO SCH (08:28)
[2025-02-03] MEDS ORDERED: ATORVASTATIN 10 MG TAB PO SCH (09:00)
--- NOTE | 2025-02-03 11:02 | CT ---
EXAMINATION TYPE: CT angio chest DATE OF EXAM: 02/03/2025 10:24 AM COMPARISON: 01/18/2025. CLINICAL INDICATION: Male, 74 years old with history of elevated ddimer; Elevated dimer, CHF, recent chest sx, device placement. Could not raise LT arm. TECHNIQUE/CONTRAST: CTA scan of the thorax is performed with IV Contrast, patient injected with 100 mL of Isovue 370, MIP images are created and reviewed these are created on a separate workstation.. CT DLP: 302.30 mGycm, Automated exposure control for dose reduction was used. FINDINGS: Lungs/Pleura: New small to moderate bilateral pleural effusions are new from prior is associated atel ectasis right lower lobe airspace disease is present. No pneumothorax visualized. Airway: Large airways are patent. Heart: Cardiomegaly is demonstrated. Coronary artery atherosclerotic changes and stents present. Car diac conduction leads remain in the right ventricle and right atrium. Vasculature: Limited evaluation due to bolus timing, no evidence for central pulmonary embolus. The lobar, segmental and subsegmental branches are limited due to bolus timing. The pulmonary artery is o f normal size. Motion limits evaluation of the lung bases. Mediastinum: No gross evidence of adenopathy. Musculoskeletal: Compression deformity to the superior endplate of T5 and T9 with up to 25% height lo ss. Soft Tissues/lymph nodes: Left chest wall cardiac conduction device present resolution of prior subcu taneous gas around the cardiac conduction device. Lower neck: No significant findings. Upper Abdomen: No significant findings. IMPRESSION: 1. No evidence of central pulmonary embolism. Motion in the lung bases limits evaluation of the lowe r arterial vasculature. 2. Right lower lobe airspace opacities clinically for pneumonia. 3. New small to moderate pleural effusions bilaterally. 4. Resolution of prior gas and inflammation around the left chest wall pacemaker. Which is likely du e to postsurgical changes. 5. Cardiomegaly. Correlate with pulmonary vascular congestion correlate for congestive heart failure . 6. T5 and T9 compression vertebral body compression forms a 25% height loss. Consider further evalua tion with MRI.. 7. [facility], , 02/03/2025 11:00 AM
--- NOTE | 2025-02-03 11:37 | P.CRDCN ---
History of Present Illness Consult date: 02/03/25 Consult reason: congestive heart failure History of present illness: The patient is a 74-year-old male who follows in the office with Dr. Romano. Patient has a known history of coronary artery disease and ischemic cardiomyopathy. Patient underwent AICD implant with Dr. Lopez in early January. He returned to the hospital last week with increased shortness of breath. He was diuresed and discharged home. He had contacted the office several times about his increased shortness of breath and recently returned. Initial EKG has shown atrial fibrillation. At the time of his ICD implant he was in sinus rhythm. He is compliant with his medication regimen. DIAGNOSTICS: EKG shows paced rhythm with underlying atrial fibrillation Chest x-ray shows pulmonary vascular congestion Labs: WBC 8.9, hemoglobin 12.0, hematocrit 37.1, platelet 434, D-dimer 17.09, sodium 139, potassium 5.6, BUN 24, creatinine 0.63, magnesium 2.3, AST 43, ALT 61, troponin 0.04, BNP 9930 REVIEW OF SYSTEMS: No fever or chills. No cough or expectoration. No diaphore sis. Patient denies headache, dizziness, blurred vision, double vision. Patient denies any stomach discomfort. No nausea, vomiting. No hematochezia. No hematemesis. Denies any black stools or blood in his stools. Denies dysuria or hematuria. No muscle weakness or numbness. Positive for shortness of breath with minimal exertion. No chest pain or chest pressure. PHYSICAL EXAMINATION: This is a 74-year-old male in no apparent distress at the time of my examination. HEENT: Head is atraumatic, normocephalic. Pupils are equal, round. There is no jugular venous distention. No carotid bruit is heard. CHEST EXAMINATION: Lungs are diminished to auscultation. No chest wall tenderness is noted on palpation or with deep breathing. HEART EXAMINATION: Irregular rate and rhythm. S1, S2 heard. No murmurs, gallops or rub. ABDOMEN: Soft, nontender. Bowel sounds are heard. No organomegaly noted. EXTREMITIES: 2+ peripheral pulses with no evidence of peripheral edema and no calf tenderness noted. NEUROLOGIC EXAMINATION: Patient is awake, alert and oriented x3. FINAL ASSESSMENT AND PLAN: Shortness of breath Congestive heart failure, acute on chronic class III Paroxysmal atrial fibrillation, currently in A-fib Ischemic cardiomyopathy History of coronary artery disease Elevated D-dimer PLAN: Continue anticoagulation with Eliquis CTA of the chest for elevated D-dimer Start amiodarone for atrial fibrillation; temporary strategy until outpatient atrial fibrillation can be discussed Further recommendations to be based upon clinical course I am dictating on behalf of Dr Serafin Lopez's history/physical and assessment/plan. 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 x7 stents. cardiomyopathy lv. sick sinus Last Myocardial Infarction Date:: 08/11/2024 History of Any Multi-Drug Resistant Organisms: None Reported Past Surgical History: Heart Catheterization, Heart Catheterization With Stent Additional Past Surgical History / Comment(s): left hip replacement 2020, hernia repair 2013, colonoscopy, right ankle tendon repair, Past Anesthesia/Blood Transfusion Reactions: No Reported Reaction Date of Last Stent Placement:: 08/11/2024 Past Psychological History: No Psychological Hx Reported Smoking Status: Former smoker Past Alcohol Use History: None Reported, Occasional Past Drug Use History: None Reported - Past Family History Mother Family Medical History: Pulmonary Embolus Father Family Medical History: Coronary Artery Disease (CAD) Medications and Allergies Home Medications Medication Instructions Recorded Confirmed Type Eplerenone 12.5 mg PO W/BRKFST 08/11/24 02/02/25 History Ezetimibe [Zetia] 10 mg PO W/SUPPER 08/11/24 02/02/25 History Losartan [Cozaar] 12.5 mg PO W/BRKFST 08/11/24 02/02/25 History Rosuvastatin Calcium [Crestor] 5 mg PO W/BRKFST 08/11/24 02/02/25 History Apixaban [Eliquis] 5 mg PO BID-W/MEALS 01/18/25 02/02/25 History Aspirin 81 mg PO W/BRKFST 01/18/25 02/02/25 History Cyanocobalamin (Vitamin B-12) 1,000 mcg PO W/BRKFST 01/18/25 02/02/25 History [Vitamin B-12] Metoprolol Succinate (ER) [Toprol 50 mg PO W/BRKFST 01/18/25 02/02/25 History XL] Ticagrelor [Brilinta] 90 mg PO BID-W/MEALS 01/18/25 02/02/25 History cefuroxime axetiL [Ceftin] 500 mg PO BID-W/MEALS 02/02/25 02/02/25 History methylPREDNISolone Dose Pack See Taper PO DIRECTED 02/02/25 02/02/25 History [Medrol Dose Pack] Allergies Allergy/AdvReac Type Severity Reaction Status Date / Time atorvastatin [From Lipitor] Allergy Nausea & Verified 02/02/25 19:35 Vomiting Physical Exam Vitals: Vital Signs Temp Pulse Pulse Resp BP BP Pulse Ox 02/03/25 00:30 28 H 02/03/25 00:16 97.6 F 88 18 109/77 100 02/02/25 23:25 97.7 F 99 20 120/85 100 02/02/25 23:14 97.7 F 97 21 104/72 96 02/02/25 19:00 90 21 102/84 98 02/02/25 18:30 79 19 113/85 97 02/02/25 18:00 71 22 106/83 99 02/02/25 17:30 85 16 108/80 99 02/02/25 17:00 80 18 104/82 98 02/02/25 16:30 89 17 106/78 100 02/02/25 15:22 97.5 F L 90 20 119/67 100 Intake and Output 02/02/25 02/03/25 02/03/25 22:59 06:59 14:59 Output Total 2100 Balance -2100 Output: Urine 2100 Other: Weight 72.575 kg 70.4 kg Results 02/02/25 16:27 02/02/25 16:27 Cardiac Enzymes 02/02/25 02/02/25 02/02/25 Range/Units 16:27 16:27 19:38 AST 43 (17-59) U/L Troponin I 0.032 0.035 H* (0.000-0.034) ng/mL 02/02/25 Range/Units 22:57 AST (17-59) U/L Troponin I 0.040 H* (0.000-0.034) ng/mL Coagulation 02/02/25 Range/Units 16:27 PT 13.9 H (10.0-12.5) sec APTT 23.6 (22.0-30.0) sec CBC 02/02/25 Range/Units 16:27 WBC 8.93 (4.50-10.00) 10*3/uL RBC 3.75 L (4.40-5.60) 10*6/uL Hgb 12.0 L (13.0-17.0) g/dL Hct 37.1 L (39.6-50.0) % Plt Count 434 D (140-440) 10*3/uL Comprehensive Metabolic Panel 02/02/25 Range/Units 16:27 Sodium 139 (137-145) mmol/L Potassium 5.6 H (3.5-5.1) mmol/L Chloride 108 H (98-107) mmol/L Carbon Dioxide 23 (22-30) mmol/L BUN 24 H (9-20) mg/dL Creatinine 0.63 L (0.66-1.25) mg/dL Glucose 115 H (74-99) mg/dL Calcium 9.0 (8.4-10.2) mg/dL AST 43 (17-59) U/L ALT 61 H (4-49) U/L Alkaline Phosphatase 98 (38-126) U/L Total Protein 7.0 (6.3-8.2) g/dL Albumin 3.6 (3.5-5.0) g/dL Current Medications Generic Name Dose Route Start Last Admin Trade Name Freq PRN Reason Stop Dose Admin Apixaban 5 mg 02/03/25 07:30 02/03/25 06:49 Apixaban 5 Mg Tab PO 5 mg BID-W/MEALS LENNY Administration Protocol Aspirin 81 mg 02/03/25 07:30 02/03/25 06:49 Aspirin 81 Mg PO 81 mg W/BRKFST LENNY Administration Cyanocobalamin 1,000 mcg 02/03/25 07:30 02/03/25 06:49 Cyanocobalamin 500 Mcg Tab PO 1,000 mcg W/BRKFST LENNY Administration Ezetimibe 10 mg 02/03/25 17:30 Ezetimibe 10 Mg Tab PO W/SUPPER LENNY Furosemide 40 mg 02/02/25 19:00 02/03/25 03:52 Furosemide 10 Mg/Ml 4 Ml Vial IV 40 mg Q8H LENNY Administration Metoprolol Succinate 25 mg 02/03/25 07:30 02/03/25 06:49 Metoprolol Succinate (Er) 25 Mg Tab.Er.24h PO 25 mg W/BRKFST LENNY Administration Nitroglycerin 1 inch 02/03/25 00:00 02/03/25 06:07 Nitroglycerin Oint 1 Inch/Gm Packet TOPICAL 02/04/25 00:00 Not Given Q6HR LENNY Pravastatin Sodium 20 mg 02/03/25 21:00 Pravastatin Sodium 20 Mg Tab PO HS [facility] Spironolactone 12.5 mg 02/03/25 07:30 02/03/25 06:48 Spironolactone 25 Mg Tab PO 12.5 mg BID-W/MEALS LENNY Administration Ticagrelor 90 mg 02/03/25 07:30 02/03/25 06:49 Ticagrelor 90 Mg Tab PO 90 mg BID-W/MEALS LENNY Administration Intake and Output 02/02/25 02/03/25 02/03/25 22:59 06:59 14:59 Output Total 2100 Balance -2100 Output: Urine 2100 Other: Weight 72.575 kg 70.4 kg 02/02/25 16:27 02/02/25 16:27
[2025-02-03] MEDS ORDERED: IPRATROPIUM-ALBUTEROL 3 ML NEB INHALATION PRN (15:13)
[2025-02-03] MEDS: PIPERACILLIN-TAZOBACTAM 3.375 GM in SODIUM CHLORIDE 0.9% 100 ML IVPB SCH (15:58)
[2025-02-03] MEDS: EZETIMIBE 10 MG TAB PO SCH (16:53)
[2025-02-03] MEDS: IPRATROPIUM-ALBUTEROL 3 ML NEB INHALATION SCH (20:33)
--- NOTE | 2025-02-03 20:41 | HP ---
HISTORY AND PHYSICAL CHIEF COMPLAINT: Shortness of breath as well as bilateral leg swelling. HISTORY OF PRESENT ILLNESS: This is a 74-year-old gentleman with a past medical history of multiple medical problems including ischemic cardiomyopathy, had biventricular ICD implantation recently on 14 of January. Subsequently, the patient has some shortness of breath and inability to sleep and the patient also had some chest pain in between, the patient came to [facility] and evaluated. Evaluation showed possible right lower lobe pneumonia as well as bilateral pleural effusion also, right more than left. There is no history of any fever, rigors, or chills at this time. The patient is taking cefuroxime at home. PAST MEDICAL HISTORY: Atrial flutter, myocardial infarction, factor V. Rest of the history and the chart is also reviewed. HOME MEDICATIONS: Reviewed, include . Doses and rest of medications reviewed. ALLERGIES: Lipitor. FAMILY HISTORY: History of pulmonary embolism in the family. SOCIAL HISTORY: Previous history of smoking. REVIEW OF SYSTEMS: 14-point review of systems was negative, except as mentioned earlier. PHYSICAL EXAMINATION: VITAL SIGNS: Pulse is 88, blood pressure 104/72, respirations 16. HEENT: Conjunctivae normal. NECK: No jugular venous distention. CARDIOVASCULAR: S1, S2. RESPIRATIONS: Breath sounds diminished at the bases. A few scattered rhonchi. ABDOMEN: Soft, nontender. LEGS: No edema, no cyanosis. NERVOUS SYSTEM: Nonfocal LABORATORY DATA: WBC 8.93, hemoglobin 12, and D-dimer is 17.09. Rest of the labs are noted. ASSESSMENT: 1. Acute right lower lobe pneumonia. 2. Bilateral pleural effusion. 3. Ischemic cardiomyopathy with status post recent biventricular ICD placement. 4. Possible congestive heart failure acute exacerbation. 5. Troponin 0.040, indeterminate. 6. Hyperkalemia present on admission. 7. Anemia. 8. History of atrial flutter. 9. History of factor V deficiency. 10.History of coronary artery disease, stent. 11.History of degenerative joint disease. RECOMMENDATIONS: 1. This 74-year-old gentleman presented with multiple complex medical issues. I would recommend broad-spectrum IV antibiotics empirically, bronchodilators, resume the home medications. 2. Cardiology and pulmonary consultations. We will also recommend IV Lasix and fluid restriction up to 1500 mL in 24 hours. Home medications will be continued once they are confirmed. MMODL / IJN: [id number] / KYLEED
[2025-02-03] MEDS: PRAVASTATIN SODIUM 20 MG TAB PO SCH (21:51)
[2025-02-04 07:52] LABS: Basophils # (A) 0.05 X 10*3/uL (0.00-0.10); Basophils % (A) 0.6 %; Eosinophils # (A) 0.25 X 10*3/uL (0.04-0.35); Eosinophils % (A) 3.1 %; HCT 40.3 % (39.6-50.0); HGB 13.0 g/dL (13.0-17.0); Immature Grans, Automated 0.50 %; Lymphocytes # (A) 1.10 X 10*3/uL (0.90-5.00); Lymphocytes % (A) 13.6 %; MCH 31.4 pg (27.0-32.0); MCHC 32.3 g/dL (32.0-37.0); MCV 97.3 FL (80.0-97.0); Monocytes # (A) 0.70 X 10*3/uL (0.20-1.00); Monocytes % (A) 8.6 %; NRBC Per 100 WBC 0 X 10*3/uL (0.00-0.01); Neutrophils # (A) 5.96 X 10*3/uL (1.80-7.70); Neutrophils % (A) 73.6 %; Platelet Count 454 X 10*3/uL (140-440); RBC 4.14 X 10*6/uL (4.40-5.60); RDW 13.8 % (11.5-14.5); WBC 8.10 X 10*3/uL (4.50-10.00)
[2025-02-04 08:06] LABS: ALT 75 U/L (10-49); AST 49 U/L (14-35); Albumin 3.5 g/dL (3.8-4.9); Albumin/Globulin Ratio 1.06 Ratio (1.60-3.17); Alkaline Phosphatase 102 U/L (41-126); Anion Gap 12.90 mmol/L (4.00-12.00); BUN/Creat Ratio 23.67 Ratio (12.00-20.00); Blood Urea Nitrogen 21.3 mg/dL (9.0-27.0); Calcium 8.7 mg/dL (8.7-10.3); Carbon Dioxide 26.1 mmol/L (21.6-31.8); Chloride 98 mmol/L (96-109); Globulin 3.3 g/dL (1.6-3.3); Glucose 95 mg/dL (70-110); Potassium 4.3 mmol/L (3.5-5.5); Sodium 137 mmol/L (135-145); Total Protein 6.8 g/dL (6.2-8.2)
--- NOTE | 2025-02-04 09:48 | PN ---
PROGRESS NOTE SUBJECTIVE: Shahriar is a 74-year-old gentleman with history of cardiomyopathy, chronic systolic heart failure, status post AICD, was admitted to hospital with shortness of breath with exertion and was found to have had an acute exacerbation of chronic systolic heart failure and had new onset atrial fibrillation. He has had an echocardiogram at the beginning of the year that revealed severe LV systolic dysfunction. He is currently being treated with intravenous diuretics with improvement in symptoms. OBJECTIVE: VITAL SIGNS: Afebrile, heart rate is 87 beats per minute, blood pressure is 140/79, respiratory rate 18, and O2 saturation is 96% on room air. NECK: There is no jugular venous distention. CHEST: Reveals good air entry bilaterally. HEART: Reveals first and second heart sounds. No gallop. Systolic murmur at the apex. ABDOMEN: Soft. EXTREMITIES: Exam of the extremities did not reveal any edema. Peripheral pulses are felt. ASSESSMENT: 1. Acute exacerbation of chronic systolic heart failure, status post AICD. 2. New onset atrial fibrillation. PLAN: The patient will continue with IV diuretics for another day and possible discharge home tomorrow. MMODL / IJN: [id number] /
[2025-02-04 12:02] VITALS: BMI 18.3
--- NOTE | 2025-02-04 13:24 | P.CNPUL ---
History of Present Illness Consult date: 02/04/25 Requesting physician: Mushtaq E Tulio Reason for consult: dyspnea, abnormal CXR/CT Chief complaint: Shortness of breath with exertion History of present illness: This is a pleasant 74-year-old male patient with a known history of atrial fibrillation/flutter, factor V deficiency, cardiac arrest with previous stent placements, former smoker, ischemic cardiomyopathy with an ejection fraction of 25 to 30%. He had recently undergone AICD placement on January 14, 2025. Since that time he is felt he has been having increasing shortness of breath. Dyspnea on exertion. Difficulty climbing 1 flight of stairs. He had been back in the emergency room on January 18, 2025 was treated with diuretics and discharged to home. He presented back here again on 02/02/2025 with continued complaints of shortness of breath and dyspnea on exertion. He denied any fever or chills. No cough or congestion. Chest x-ray revealed cardiomegaly, pulmonary vascular congestion and bilateral pleural effusions. CT angiogram ruled out pulmonary embolism. There is right lower lobe atelectasis. New small to moderate bilateral pleural effusions. Cardiomegaly with pulmonary vascular congestion. White count 8.1. Hemoglobin 13.0. Platelets 454. D-dimer 17.0. Sodium 137. Potassium 4.3. Bicarb 26. BUN 21. Creatinine 0.9. Glucose 95. AST 49. ALT 75. Troponin 0.035, 0.040. proBNP was 9930. He is seen today in consultation on the regular medical floor. He is sitting up in bed. Awake and alert in no acute distress. Maintaining good O2 saturations in the upper 90s on room air oxygen. He has been afebrile. Hemodynamically stable. Review of Systems REVIEW OF SYSTEMS: CONSTITUTIONAL: Denies any recent significant weight loss or weight gain. EYES: Denies change in vision. EARS, NOSE, MOUTH, THROAT: Denies headaches, denies sore throat. CARDIOVASCULAR: Denies chest pain, palpitations or syncopal episodes. RESPIRATORY: Positive for shortness of breath, no cough, congestion or hemoptysis. GASTROINTESTINAL: Denies change in appetite, denies abdominal pain GENITOURINARY: Denies hematuria, denies infections. MUSKULOSKELETAL: Denies pain, denies swelling. INTEGUMENTARY: Denies rash, denies eczema. NEUROLOGICAL: Denies recent memory loss, no recent seizure activity. PSYCHIATRIC: Denies anxiety, denies depression. HEMATOLOGIC/LYMPHATIC: Denies anemia, denies enlarged lymph nodes. Past Medical History Past Medical History: Atrial Flutter, Myocardial Infarction (PR) Additional Past Medical History / Comment(s): Factor 5- takes low dose aspirin x2 PR, with cardiac arrest in aug 2024. x7 stents. cardiomyopathy lv. sick sinus Last Myocardial Infarction Date:: 08/11/2024 History of Any Multi-Drug Resistant Organisms: None Reported Past Surgical History: Heart Catheterization, Heart Catheterization With Stent Additional Past Surgical History / Comment(s): left hip replacement 2020, hernia repair 2013, colonoscopy, right ankle tendon repair, Past Anesthesia/Blood Transfusion Reactions: No Reported Reaction Date of Last Stent Placement:: 08/11/2024 Past Psychological History: No Psychological Hx Reported Smoking Status: Former smoker Past Alcohol Use History: None Reported, Occasional Past Drug Use History: None Reported - Past Family History Mother Family Medical History: Pulmonary Embolus Father Family Medical History: Coronary Artery Disease (CAD) Medications and Allergies Home Medications Medication Instructions Recorded Confirmed Type Eplerenone 12.5 mg PO W/BRKFST 08/11/24 02/02/25 History Ezetimibe [Zetia] 10 mg PO W/SUPPER 08/11/24 02/02/25 History Losartan [Cozaar] 12.5 mg PO W/BRKFST 08/11/24 02/02/25 History Rosuvastatin Calcium [Crestor] 5 mg PO W/BRKFST 08/11/24 02/02/25 History Apixaban [Eliquis] 5 mg PO BID-W/MEALS 01/18/25 02/02/25 History Aspirin 81 mg PO W/BRKFST 01/18/25 02/02/25 History Cyanocobalamin (Vitamin B-12) 1,000 mcg PO W/BRKFST 01/18/25 02/02/25 History [Vitamin B-12] Metoprolol Succinate (ER) [Toprol 50 mg PO W/BRKFST 01/18/25 02/02/25 History XL] Ticagrelor [Brilinta] 90 mg PO BID-W/MEALS 01/18/25 02/02/25 History cefuroxime axetiL [Ceftin] 500 mg PO BID-W/MEALS 02/02/25 02/02/25 History methylPREDNISolone Dose Pack See Taper PO DIRECTED 02/02/25 02/02/25 History [Medrol Dose Pack] Allergies Allergy/AdvReac Type Severity Reaction Status Date / Time atorvastatin [From Lipitor] Allergy Nausea & Verified 02/02/25 19:35 Vomiting Physical Exam Vitals: Vital Signs Temp Pulse Resp BP Pulse Ox 02/04/25 06:53 97.6 F 87 17 120/79 96 02/04/25 01:23 97.7 F 89 16 102/70 98 02/03/25 19:35 97.5 F L 96 16 105/67 96 02/03/25 18:53 98.2 F 78 14 100/64 99 02/03/25 16:45 79 17 109/71 98 Intake and Output 02/03/25 02/04/25 02/04/25 22:59 06:59 14:59 Intake Total 240 Output Total 1974 Balance -1735 Intake: Oral 240 Output: Urine 1974 Other: Voiding Method Toilet Toilet Toilet Urinal Urinal Urinal Weight 57.9 kg 57.9 kg GENERAL EXAM: Alert, pleasant 74-year-old male, sitting up in bed, on room air oxygen, fairly comfortable in no apparent distress. HEAD: Normocephalic. EYES: Normal reaction of pupils, equal size. NOSE: Clear with pink turbinates. THROAT: No erythema or exudates. NECK: No masses, no JVD. CHEST: No chest wall deformity. Recent left subclavian AICD placement LUNGS: Equal air entry with crackles in the bilateral bases. CVS: S1 and S2 normal with no audible murmur, regular rhythm. ABDOMEN: No hepatosplenomegaly, normal bowel sounds, no guarding or rigidity. SPINE: No scoliosis or deformity SKIN: No rashes CENTRAL NERVOUS SYSTEM: No focal deficits, tone is normal in all 4 extremities. EXTREMITIES: There is 1+ peripheral edema. No clubbing, no cyanosis. Peripheral pulses are intact. Results - Laboratory Findings CBC and BMP: 02/04/25 04:26 02/04/25 04:26 PT/INR, D-dimer PT 13.9 sec (10.0-12.5) H 02/02/25 16:27 INR 1.3 (<1.2) H 02/02/25 16:27 D-Dimer 17.09 mg/L FEU (<0.60) H 02/03/25 00:32 Abnormal lab findings: Abnormal Labs 02/02/25 02/02/25 02/02/25 16:27 16:27 16:27 RBC 3.75 L Hgb 12.0 L Hct 37.1 L MCV 98.9 H Plt Count MPV Lymphocytes # 0.55 L Eosinophils # 0.00 L PT 13.9 H INR 1.3 H D-Dimer Potassium 5.6 H Chloride 108 H Anion Gap BUN 24 H Creatinine 0.63 L BUN/Creatinine Ratio Glucose 115 H AST ALT 61 H Troponin I C-Reactive Protein Albumin Albumin/Globulin Ratio 02/02/25 02/02/25 02/03/25 19:38 22:57 00:32 RBC Hgb Hct MCV Plt Count MPV Lymphocytes # Eosinophils # PT INR D-Dimer 17.09 H Potassium Chloride Anion Gap BUN Creatinine BUN/Creatinine Ratio Glucose AST ALT Troponin I 0.035 H* 0.040 H* C-Reactive Protein Albumin Albumin/Globulin Ratio 02/04/25 02/04/25 02/04/25 04:26 04:26 11:53 RBC 4.14 L Hgb Hct MCV 97.3 H Plt Count 454 H MPV 9.4 L Lymphocytes # Eosinophils # PT INR D-Dimer Potassium Chloride Anion Gap 12.90 H BUN Creatinine BUN/Creatinine Ratio 23.67 H Glucose AST 49 H ALT 75 H Troponin I C-Reactive Protein 2.2 H Albumin 3.5 L Albumin/Globulin Ratio 1.06 L - Diagnostic Findings Chest x-ray: image reviewed CT scan - chest: image reviewed Assessment and Plan Assessment: Dyspnea on exertion secondary to an acute exacerbation of systolic congestive heart failure Severe ischemic cardiomyopathy with an ejection fraction of 25 to 30%, status post AICD placement on 01/14/2025 Coronary artery disease with previous cardiac arrest in August 2024 History of myocardial infarction with previous stent placements Atrial fibrillation/flutter anticoagulated with Eliquis Hypertension Hyperlipidemia Plan: The patient was seen and evaluated Imaging, labs and medications reviewed Stable and on room air oxygen Procalcitonin is negative Discontinue Zosyn Continue IV diuretics Anticoagulated with Eliquis Resume home medication Cardiology consulted Discussed the plan with the patient and who is at the bedside We will continue to follow and make further recommendations based on his clinical status I have personally seen and examined the patient, performed the documentation and the assessment and plan as written. Number of minutes spent on the visit: 20 Dictation was produced using [employer] dictation software. Please excuse any grammatical, word or spelling errors. Time with Patient: Greater than 30
--- NOTE | 2025-02-05 01:56 | PN ---
PROGRESS NOTE DATE OF SERVICE: 02/04/2025 HISTORY OF PRESENT ILLNESS: This is a 74-year-old gentleman admitted with shortness of breath and bilateral leg swelling. Possible CHF acute exacerbation, possible pneumonia is also being considered. No chest pain. No palpitation. PAST MEDICAL HISTORY: Reviewed. REVIEW OF SYSTEMS: 14-point review of systems negative except as mentioned earlier. CURRENT MEDICATIONS: Reviewed. PHYSICAL EXAMINATION: VITAL SIGNS: Pulse 87, blood pressure 127, respirations 17. CHEST: Few scattered rhonchi. CARDIOVASCULAR: S1, S2. ABDOMEN: Soft. NERVOUS SYSTEM: Nonfocal. LABORATORY DATA: D-dimer is noted. Troponin is noted. ASSESSMENT: 1. Congestive heart failure acute exacerbation with acute on chronic systolic dysfunction. 2. Ischemic cardiomyopathy, status post recent biventricular AICD placement. 3. right lower lobe pneumonia unlikely per dr cochran 4. Bilateral pleural effusion. 5. Troponin 0.040, indeterminate. 6. Hyperkalemia, present on admission. 7. Anemia. 8. History of atrial flutter. 9. History of Factor V deficiency. 10.Multiple complex medical issues. RECOMMENDATIONS: Continue current medications, symptomatic treatment. I recommend continue with diuretics. Otherwise, fluid restriction. We will do repeat chest x-ray in the morning. Closely follow with Cardiology and Pulmonology. Guarded prognosis. Further recommendations to follow. The patient will require full admit for more than 2 midnight stays. MMODL / IJN: [id number] / MTDD
[2025-02-05 07:32] VITALS: PULSE 85
--- NOTE | 2025-02-05 07:59 | XR ---
EXAMINATION TYPE: XR chest 1V portable DATE OF EXAM: 02/05/2025 7:43 AM COMPARISON: Chest radiographs from 02/02/2025. CLINICAL INDICATION: Male, 74 years old with history of chf; [facility] TECHNIQUE: XR chest 1V portable Frontal view of the chest. FINDINGS: Lungs/Pleura: No evidence of focal consolidation or pneumothorax. Blunting of the costophrenic angles is present. Pulmonary vascularity: Unremarkable. Heart/mediastinum: Cardiomediastinal silhouette is enlarged. Three lead cardiac conduction device ove rlying the left hemithorax with lead tips projecting over the right ventricle, right atrium and coron roberto sinus. Musculoskeletal: No acute osseous pathology. Other findings: None IMPRESSION: Cardiomegaly, pulmonary vascular congestion and bilateral pleural effusions. Correlate with BNP for c ongestive heart failure. [facility], , 02/05/2025 7:57 AM
--- NOTE | 2025-02-05 09:50 | P.PN ---
Subjective Progress Note Date: 02/05/25 This is a pleasant 74-year-old male patient with a known history of atrial fibrillation/flutter, factor V deficiency, cardiac arrest with previous stent placements, former smoker, ischemic cardiomyopathy with an ejection fraction of 25 to 30%. He had recently undergone AICD placement on January 14, 2025. Since that time he is felt he has been having increasing shortness of breath. Dyspnea on exertion. Difficulty climbing 1 flight of stairs. He had been back in the emergency room on January 18, 2025 was treated with diuretics and discharged to home. He presented back here again on 02/02/2025 with continued complaints of shortness of breath and dyspnea on exertion. He denied any fever or chills. No cough or congestion. Chest x-ray revealed cardiomegaly, pulmonary vascular congestion and bilateral pleural effusions. CT angiogram ruled out pulmonary embolism. There is right lower lobe atelectasis. New small to moderate bilateral pleural effusions. Cardiomegaly with pulmonary vascular congestion. White count 8.1. Hemoglobin 13.0. Platelets 454. D-dimer 17.0. Sodium 137. Potassium 4.3. Bicarb 26. BUN 21. Creatinine 0.9. Glucose 95. AST 49. ALT 75. Troponin 0.035, 0.040. proBNP was 9930. He is seen today in consultation on the regular medical floor. He is sitting up in bed. Awake and alert in no acute distress. Maintaining good O2 saturations in the upper 90s on room air oxygen. He has been afebrile. Hemodynamically stable. The patient is seen today February 05, 2025 in follow-up on the regular medical floor. He is currently sitting up in bed. Awake and alert in no acute distress. Maintaining good O2 saturations in the 90s on room air oxygen. His procalcitonin was negative x 2. Chest x-ray reveals cardiomegaly with pulmonary vascular congestion and bilateral pleural effusions. ESR 48. C-reactive protein 2.2. He remains on Lasix 40 mg IV every 8 hours. Remains on Aldactone. Anticoagulated with Eliquis. Continued on amiodarone. Bronchodilators as needed. Currently in a -330 mL balance. Objective - Vital Signs Vital signs: Vital Signs Temp 97.8 F 02/05/25 07:00 Pulse 85 02/05/25 07:00 Resp 17 02/05/25 07:00 BP 103/67 02/05/25 07:00 Pulse Ox 95 02/05/25 07:00 FiO2 Intake & Output 02/04/25 02/05/25 02/05/25 18:59 06:59 18:59 Intake Total 770 Output Total 1100 Balance -330 Weight 57.9 kg 63.7 kg Intake: Oral 770 Output: Urine 1100 Other: Voiding Method Toilet Toilet Urinal Urinal # Voids 2 - Exam GENERAL EXAM: Alert, 74-year-old male, sitting up in bed, on room air oxygen, comfortable in no apparent distress. HEAD: Normocephalic. EYES: Normal reaction of pupils, equal size. NOSE: Clear with pink turbinates. THROAT: No erythema or exudates. NECK: No masses, no JVD. CHEST: No chest wall deformity. Recent left subclavian AICD placement LUNGS: Equal air entry with crackles in the bilateral bases. CVS: S1 and S2 normal with no audible murmur, regular rhythm. ABDOMEN: No hepatosplenomegaly, normal bowel sounds, no guarding or rigidity. SPINE: No scoliosis or deformity SKIN: No rashes CENTRAL NERVOUS SYSTEM: No focal deficits, tone is normal in all 4 extremities. EXTREMITIES: There is 1+ peripheral edema. No clubbing, no cyanosis. Peripheral pulses are intact. - Labs CBC & Chem 7: 02/04/25 04:26 02/04/25 04:26 Labs: Abnormal Lab Results - Last 24 Hours (Table) 02/04/25 02/04/25 Range/Units 11:53 11:53 ESR 48 H (0-20) mm/Hr C-Reactive Protein 2.2 H (<1.0) mg/dL Assessment and Plan Assessment: Dyspnea on exertion secondary to an acute exacerbation of systolic congestive h eart failure Severe ischemic cardiomyopathy with an ejection fraction of 25 to 30%, status post AICD placement on 01/14/2025 Coronary artery disease with previous cardiac arrest in August 2024 History of myocardial infarction with previous stent placements Atrial fibrillation/flutter anticoagulated with Eliquis Hypertension Hyperlipidemia Plan: The patient was seen and evaluated Chest x-ray, labs and medications reviewed Stable and on room air oxygen Remains on IV diuretics Remains in negative balance Anticoagulated with Eliquis Home once cleared by cardiology Discussed the plan with the patient and This patient was seen independently by the pulmonary nurse practitioner address ing pulmonary issues I have personally seen and examined the patient, performed the documentation and the assessment and plan as written. Number of minutes spent on the visit: 23 Dictation was produced using [employer] dictation software. Please excuse any grammatical, word or spelling errors.
--- NOTE | 2025-02-05 11:33 | P.PN ---
Subjective HISTORY OF PRESENT ILLNESS: Patient examined this morning at bedside. Patient currently denies chest pain or pressure. He denies shortness of breath. He remains on IV Lasix. Telemetry reveals paced rhythm with controlled heart rates. Vital signs are stable. PHYSICAL EXAM: VITAL SIGNS: Reviewed. GENERAL: Well-developed in no acute distress. NECK: Supple. No JVD or thyromegaly LUNGS: Respirations even and unlabored. Lungs essentially clear to auscultation bilaterally. HEART: Regular rate and rhythm. S1 and S2 heard. EXTREMITIES: Normal range of motion. No clubbing or cyanosis. Peripheral pulses intact. No lower extremity edema ASSESSMENT: Shortness of breath Acute heart failure with reduced EF 25 to 30% History of AICD implantation Paroxysmal atrial fibrillation Ischemic cardiomyopathy Coronary artery disease PLAN: Discontinue IV Lasix. Begin oral Lasix 40 mg daily Change amiodarone to 200 mg twice a day Continue additional cardiac medications Patient is stable for discharge home today from a cardiac standpoint Patient to follow-up postdischarge in the office Nurse practitioner note has been reviewed by physician. Signing provider agrees with the documented findings, assessment, and plan of care documented by [employer] as a scribe. Objective - Vital Signs Vital signs: Vital Signs Temp 97.8 F 02/05/25 07:00 Pulse 85 02/05/25 07:00 Resp 17 02/05/25 07:00 BP 103/67 02/05/25 07:00 Pulse Ox 95 02/05/25 07:00 FiO2 Intake & Output 02/04/25 02/05/25 02/05/25 18:59 06:59 18:59 Intake Total 770 Output Total 1100 Balance -330 Weight 57.9 kg 63.7 kg Intake: Oral 770 Output: Urine 1100 Other: Voiding Method Toilet Toilet Urinal Urinal # Voids 2 - Labs CBC & Chem 7: 02/04/25 04:26 02/04/25 04:26 Labs: Abnormal Lab Results - Last 24 Hours (Table) 02/04/25 02/04/25 Range/Units 11:53 11:53 ESR 48 H (0-20) mm/Hr C-Reactive Protein 2.2 H (<1.0) mg/dL
[2025-02-05 14:22] VITALS: BP 110/73; RESP 16; TEMP 96.7
[2025-02-05] MEDS ORDERED: AMIODARONE 200 MG TAB PO SCH (21:00)
[2025-02-06] MEDS ORDERED: FUROSEMIDE 40 MG TAB PO SCH (09:00)
--- NOTE | 2025-02-07 01:36 | P.DS ---
Providers Date of admission: 02/02/25 18:46 Expected date of discharge: 02/05/25 Attending physician: Jarad Cordova Consults: 02/03/25 15:07 Consult Physician Routine Consulting Provider: Harley Bernal Consult Reason/Comments: rt pneumonia Do you want consulting provider notified?: Yes Primary care physician: Alex Meza Hospital Course: Final diagnosis Congestive heart failure acute exacerbation with acute on chronic systolic dysfunction Ischemic cardiomyopathy, status post recent biventricular AICD placement Right lower lobe pneumonia, ruled out Bilateral pleural effusion Troponin 0.040, indeterminant per cardiology Hyperkalemia, present on admission, improved after correction History of atrial flutter History of factor V deficiency GI prophylaxis DVT prophylaxis Full code Discharge disposition Patient is being discharged in a stable condition with guarded prognosis to home. Patient will follow-up with Dr. Meza in the outpatient setting upon discharge. Patient is to continue with current medications and outpatient follow-up with cardiology and pulmonary as scheduled. Total time taken is greater than 35 minutes. Hospital course This is a 74-year-old male who was recently admitted with shortness of breath and bilateral leg swelling CHF exacerbation. Pneumonia ruled out and patient was maintained on IV diuresis showing improvements. Patient will continue on low-dose diuretic and close outpatient follow-up with cardiology Dr. Romano. Patient has been evaluated by cardiology and cleared for discharge. Please refer to consultation notes for further HPI. Currently no reports of chest pain, shortness of breath, or palpitations. Patient is afebrile. No reports of nausea or vomiting and patient is tolerating diet. Patient will be discharged home today. Guarded prognosis Physical exam: Gen: This is a 73-year-old male who is awake, alert and oriented x 3, well- developed, elderly appearing, thin built HEENT: Head is atraumatic, normocephalic. Pupils equal, round. Sclerae is anicteric. NECK: Supple. No JVD. No lymphadenopathy. No thyromegaly. LUNGS: Diminished breath sounds bilaterally otherwise clear to auscultation. No wheezes or rhonchi. No intercostal retractions. HEART: S1, S2 are muffled ABDOMEN: Soft. Bowel sounds are present. No masses. No tenderness. EXTREMITIES: No pedal edema. No calf tenderness. NEUROLOGICAL: Patient is awake, alert and oriented x3. Cranial nerves 2 through 12 are grossly intact. Please refer to medication reconciliation sheet for a list of medications. The impression and plan of care has been dictated by Gi Pro, Nurse Practitioner as directed. Dr. Art MD I have performed a history and examination and MDM of this patient, discussed the same with the dictator, and agree with the dictator's assessment and plan as written ,documented as a scribe. Based on total visit time, I have performed more than 50% of the visit. Patient Condition at Discharge: Fair Plan - Discharge Summary Discharge Rx Participant: No New Discharge Prescriptions: New Spironolactone [Aldactone] 12.5 mg PO BID-W/MEALS #60 tab Pravastatin Sodium [Pravachol] 20 mg PO HS #30 tab Amiodarone [Cordarone] 200 mg PO BID #60 tab Furosemide [Lasix] 40 mg PO DAILY #30 tab Metoprolol Succinate (ER) [Toprol XL] 25 mg PO W/BRKFST #30 tab Continue Ezetimibe [Zetia] 10 mg PO W/SUPPER Cyanocobalamin (Vitamin B-12) [Vitamin B-12] 1,000 mcg PO W/BRKFST Ticagrelor [Brilinta] 90 mg PO BID-W/MEALS Apixaban [Eliquis] 5 mg PO BID-W/MEALS Aspirin 81 mg PO W/BRKFST Discontinued Eplerenone 12.5 mg PO W/BRKFST Rosuvastatin Calcium [Crestor] 5 mg PO W/BRKFST Losartan [Cozaar] 12.5 mg PO W/BRKFST Metoprolol Succinate (ER) [Toprol XL] 50 mg PO W/BRKFST cefuroxime axetiL [Ceftin] 500 mg PO BID-W/MEALS methylPREDNISolone Dose Pack [Medrol Dose Pack] See Taper PO DIRECTED Discharge Medication List Ezetimibe [Zetia] 10 mg PO W/SUPPER 08/11/24 [History] Apixaban [Eliquis] 5 mg PO BID-W/MEALS 01/18/25 [History] Aspirin 81 mg PO W/BRKFST 01/18/25 [History] Cyanocobalamin (Vitamin B-12) [Vitamin B-12] 1,000 mcg PO W/BRKFST 01/18/25 [History] Ticagrelor [Brilinta] 90 mg PO BID-W/MEALS 01/18/25 [History] Amiodarone [Cordarone] 200 mg PO BID #60 tab 02/05/25 [Rx] Furosemide [Lasix] 40 mg PO DAILY #30 tab 02/05/25 [Rx] Metoprolol Succinate (ER) [Toprol XL] 25 mg PO W/BRKFST #30 tab 02/05/25 [Rx] Pravastatin Sodium [Pravachol] 20 mg PO HS #30 tab 02/05/25 [Rx] Spironolactone [Aldactone] 12.5 mg PO BID-W/MEALS #60 tab 02/05/25 [Rx] Follow up Appointment(s)/Referral(s): Wong Romano DO [STAFF PHYSICIAN] - 02/12/25 3:00 pm Alex Meza [Primary Care Provider] - 1-2 days Patient Instructions/Handouts: Heart Failure (ER) Activity/Diet/Wound Care/Special Instructions: Activity limited until follow-up Follow-up with primary care provider on discharge Follow-up with Dr. Romano on discharge as discussed Continue taking medications as prescribed Monitor fluid intake and no more than 40 ounces daily including all juices, water, pop, coffees, teas Elevate lower extremities while at rest Discharge Disposition: HOME SELF-CARE
== END 2025-02-05 16:45 | disposition home or self-care (01) | DRG 291 ==
LOC: EC 15:10 → 6NMEDSUR 18:46 → OBSVTOIN 18:46 → 6NMEDSUR 22:52
PROVIDERS: ADMIT Hospitalist; ATTEND Hospitalist
DX: I11.0 Hypertensive heart disease with heart failure (principal); I50.23 Acute on chronic systolic (congestive) heart failure; D68.2 Hereditary deficiency of other clotting factors; Z79.01 Long term (current) use of anticoagulants; Z86.74 Personal history of sudden cardiac arrest; D64.9 Anemia, unspecified; I48.92 Unspecified atrial flutter; I48.20 Chronic atrial fibrillation, unspecified; J98.11 Atelectasis; I49.5 Sick sinus syndrome; I25.10 Atherosclerotic heart disease of native coronary artery without angina pectoris; I49.3 Ventricular premature depolarization; I25.5 Ischemic cardiomyopathy; Z96.642 Presence of left artificial hip joint; E87.5 Hyperkalemia; G47.00 Insomnia, unspecified; F41.9 Anxiety disorder, unspecified; E78.5 Hyperlipidemia, unspecified; Z88.3 Allergy status to other anti-infective agents; Z95.810 Presence of automatic (implantable) cardiac defibrillator; Z79.02 Long term (current) use of antithrombotics/antiplatelets; Z79.82 Long term (current) use of aspirin; Z95.5 Presence of coronary angioplasty implant and graft; I25.2 Old myocardial infarction; Z87.891 Personal history of nicotine dependence; Z79.899 Other long term (current) drug therapy
CPT/HCPCS: 36415; 71045; 71046; 71275; 80053; 83605; 83735; 83880; 84145; 84484; 85025; 85379; 85610; 85652; 85730; 86140; 93005; 96374; 99291